=== PATIENT | male | born 1955 | race African-American/Black ===

== ENCOUNTER 2018-06-20 14:07 | Inpatient (IN) | payer MEDICAID, OTHER ==
[~2018-06-20] VITALS: Ht 177.8 cm; Wt 83.9 kg
[2018-06-20] MEDS ORDERED: FUROSEMIDE 40MG/4ML VIAL IVP ONE (15:15)
[2018-06-20] MEDS ORDERED: CLONIDINE 0.1MG TABLET PO ONE (15:15)
[2018-06-20] MEDS ORDERED: AMLODIPINE 10MG TABLET PO ONE (15:15)
[2018-06-20 17:04] LABS: BASOPHILS % 1.2 % (0.0-2.0); EOSINOPHILS % 3.8 % (0.0-5.0); HEMATOCRIT. 39.8 % (42.0-52.0); HEMOGLOBIN. 13.2 g/dL (14.0-18.0); LYMPHOCYTES % 21.9 % (20.0-50.0); MEAN CORPUSCULAR HEMOGLOBIN 29.5 pg (28.0-32.0); MEAN CORPUSCULAR VOLUME 88.8 fL (80.0-94.0); MEAN PLATELET VOLUME 8.2 fl (7.4-10.4); MONOCYTES % 8.8 % (2.0-8.0); NEUTROPHILS % 64.3 % (40.0-76.0); PLATELET 282 x1000/uL (130-400); RED BLOOD CELL COUNT 4.48 mill/uL (4.7-6.1); RED CELL DISTRIBUTION WIDTH 15.8 % (11.6-14.6)
[2018-06-20 17:08] LABS: CHLORIDE 103 mEq/L (98-107)
[2018-06-20 17:09] LABS: PROTHROMBIN TIME 10.1 sec (9.1-11.1)
[2018-06-20 17:14] LABS: ETHANOL BLOOD < 10 mg/dL
[2018-06-20 17:22] LABS: *AMPHETAMINES SCREEN URINE NEGATIVE (NEGATIVE)
[2018-06-20 17:23] LABS: *BARBITURATES SCREEN URINE NEGATIVE (NEGATIVE); *BENZODIAZEPINES SCREEN URINE NEGATIVE (NEGATIVE); *COCAINE SCREEN URINE NEGATIVE (NEGATIVE)
[2018-06-20 17:24] LABS: CANNABINOID URINE SCREEN NEGATIVE (NEGATIVE); METHADONE URINE SCREEN NEGATIVE (NEGATIVE); OPIATES URINE SCREEN NEGATIVE (NEGATIVE); PHENCYCLIDINE URINE SCREEN NEGATIVE (NEGATIVE)
[2018-06-20] MEDS ORDERED: ASPIRIN 81MG TABLET PO ONE (17:45)
[2018-06-20] MEDS ORDERED: POTASSIUM CHLORIDE 20MEQ TABLET SR PO ONE (19:15)
[2018-06-20] MEDS ORDERED: HYDRALAZINE 20MG/ML VIAL IV ONE (19:45)
[2018-06-21] VITALS: BP 190/117
[2018-06-21] MEDS ORDERED: ACETAMINOPHEN 325MG TABLET PO PRN (01:30)
[2018-06-21] MEDS ORDERED: TEMAZEPAM 15MG CAPSULE PO PRN (01:30)
[2018-06-21] MEDS: HYDRALAZINE 20MG/ML VIAL IV PRN ×2 (01:43→06:10)
[2018-06-21 04:28] VITALS: BP 174/104
[2018-06-21] MEDS: OMEPRAZOLE 20MG CAPSULE EXTENDED RELEASE PO SCH (06:09)
[2018-06-21] MEDS: METHYLPREDNISOLONE SOD SUCC 40 MG/ML VIAL IV SCH ×3 (06:10→20:56)
[2018-06-21 07:26] LABS: HEMATOCRIT. 39.9 % (42.0-52.0); HEMOGLOBIN. 13.5 g/dL (14.0-18.0); LYMPHOCYTES % 20.7 % (20.0-50.0); MEAN CORPUSCULAR HEMOGLOBIN 29.7 pg (28.0-32.0); MEAN CORPUSCULAR VOLUME 87.8 fL (80.0-94.0); MEAN PLATELET VOLUME 7.7 fl (7.4-10.4); MONOCYTES % 10.3 % (2.0-8.0); PLATELET 283 x1000/uL (130-400); RED BLOOD CELL COUNT 4.55 mill/uL (4.7-6.1); RED CELL DISTRIBUTION WIDTH 15.6 % (11.6-14.6)
[2018-06-21 08:00] VITALS: BP 162/95
[2018-06-21] MEDS: ALBUTEROL (0.083%) 2.5MG/3ML NEB HHN SCH ×4 (09:17→21:18)
[2018-06-21] MEDS ORDERED: AMLODIPINE 5MG TABLET PO SCH (11:45)
[2018-06-21 12:00] VITALS: BP 156/94
[2018-06-21] MEDS ORDERED: PNEUMOCOCCAL 23-VAL P-SAC VAC 0.5 ML IM ONE (12:00)
[2018-06-21] MEDS: CARVEDILOL 6.25 MG TABLET PO SCH ×2 (12:33→20:56)
[2018-06-21 16:00] VITALS: BP 165/75
[2018-06-21 17:26] LABS: BG BASE EXCESS -1.6 mmol/L (-2.0-2.0); BG DEOXYHEMOGLOBIN 4.7 % (0.0-5.0); BG FRACTION INSPIRED OXYGEN 28; BG HCO3 ACT 22.1 mmol/L (22.0-26.0); BG METHEMOGLOBIN 0.3 % (0.0-1.5); BG OXYGEN SATURATION 95.2 % (92.0-98.5); BG PCO2 34.4 mmHg (35.0-45.0); BG PH 7.426 (7.350-7.450); BG PO2 75.5 mmHg (75.0-100.0); BG SAMPLE SITE RIGHT RADIAL; BG TOTAL HEMOGLOBIN 14.1 g/dL (12.0-18.0); BG VENT MODE NASAL CANNULA
[2018-06-21 20:00] VITALS: BP 181/98
[2018-06-21] MEDS: ATORVASTATIN CALCIUM 10MG TABLET PO SCH (20:55)
[2018-06-21] MEDS ORDERED: POTASSIUM CHLORIDE 20MEQ TABLET SR PO NR (22:15)
[2018-06-21] MEDS: ENOXAPARIN 30MG/0.3ML SYR SUBCUT SCH (22:44)
[2018-06-22] VITALS: BP 137/76
[2018-06-22] MEDS: ALBUTEROL (0.083%) 2.5MG/3ML NEB HHN SCH ×6 (00:50→21:15)
[2018-06-22 04:00] VITALS: BP 190/101
[2018-06-22] MEDS: HYDRALAZINE 20MG/ML VIAL IV PRN (04:00)
[2018-06-22 05:35] LABS: *AMPHETAMINES SCREEN URINE NEGATIVE (NEGATIVE); *BARBITURATES SCREEN URINE NEGATIVE (NEGATIVE); *BENZODIAZEPINES SCREEN URINE NEGATIVE (NEGATIVE); *COCAINE SCREEN URINE NEGATIVE (NEGATIVE)
[2018-06-22 05:36] LABS: CANNABINOID URINE SCREEN NEGATIVE (NEGATIVE); METHADONE URINE SCREEN NEGATIVE (NEGATIVE); OPIATES URINE SCREEN NEGATIVE (NEGATIVE); PHENCYCLIDINE URINE SCREEN NEGATIVE (NEGATIVE)
[2018-06-22 05:37] LABS: CLARITY URINE CLEAR (CLEAR); COLOR URINE YELLOW (YELLOW); KETONES URINE TRACE (NEGATIVE); LEUKOCYTE ESTERASE URINE NEGATIVE (NEGATIVE); NITRITE URINE NEGATIVE (NEGATIVE); OCCULT BLOOD URINE NEGATIVE (NEGATIVE); PROTEIN URINE 3+ (NEGATIVE); SPECIFIC GRAVITY URINE 1.017 (1.005-1.030); UROBILINOGEN URINE 0.2 E.U./dL (0.2-1.0)
[2018-06-22] MEDS: METHYLPREDNISOLONE SOD SUCC 40 MG/ML VIAL IV SCH ×3 (06:34→21:21)
[2018-06-22] MEDS: OMEPRAZOLE 20MG CAPSULE EXTENDED RELEASE PO SCH (06:34)
[2018-06-22 06:45] VITALS: BP 145/85
[2018-06-22 08:02] LABS: HEMATOCRIT. 37.7 % (42.0-52.0); HEMOGLOBIN. 12.7 g/dL (14.0-18.0); MEAN CORPUSCULAR HEMOGLOBIN 29.7 pg (28.0-32.0); MEAN CORPUSCULAR VOLUME 88.1 fL (80.0-94.0); MEAN PLATELET VOLUME 8.2 fl (7.4-10.4); PLATELET 291 x1000/uL (130-400); RED BLOOD CELL COUNT 4.29 mill/uL (4.7-6.1); RED CELL DISTRIBUTION WIDTH 15.8 % (11.6-14.6)
[2018-06-22] MEDS ORDERED: AMLODIPINE 5MG TABLET PO SCH (09:00)
[2018-06-22] MEDS: CARVEDILOL 6.25 MG TABLET PO SCH ×2 (09:10→21:20)
[2018-06-22] MEDS: ASPIRIN 81MG EC TABLET PO SCH (09:10)
[2018-06-22] MEDS: NIFEDIPINE XL 60MG TAB PO SCH ×2 (09:11→21:21)
[2018-06-22 11:12] LABS: PHOSPHORUS 3.3 mg/dL (2.5-4.9)
[2018-06-22 12:00] VITALS: BP 153/67
[2018-06-22] MEDS: HYDRALAZINE HCL 25MG TABLET PO SCH ×2 (15:25→21:22)
[2018-06-22 19:46] LABS: PLATELET ESTIMATE NORMAL
[2018-06-22 20:00] VITALS: BP 137/83
[2018-06-22] MEDS: ATORVASTATIN CALCIUM 10MG TABLET PO SCH (21:20)
[2018-06-22] MEDS: ENOXAPARIN 30MG/0.3ML SYR SUBCUT SCH (21:21)
[2018-06-23] VITALS: BP 144/88
[2018-06-23] MEDS: ALBUTEROL (0.083%) 2.5MG/3ML NEB HHN SCH ×7 (02:36→23:55)
[2018-06-23 04:00] VITALS: BP 130/82
[2018-06-23] MEDS: METHYLPREDNISOLONE SOD SUCC 40 MG/ML VIAL IV SCH ×3 (06:23→21:17)
[2018-06-23] MEDS: HYDRALAZINE HCL 25MG TABLET PO SCH ×3 (06:59→21:17)
[2018-06-23 07:50] VITALS: BP 125/73
[2018-06-23 08:03] LABS: HEMATOCRIT. 36.5 % (42.0-52.0); HEMOGLOBIN. 12.1 g/dL (14.0-18.0); MEAN CORPUSCULAR HEMOGLOBIN 29.3 pg (28.0-32.0); MEAN CORPUSCULAR VOLUME 88.4 fL (80.0-94.0); MEAN PLATELET VOLUME 8.3 fl (7.4-10.4); PLATELET 302 x1000/uL (130-400); RED BLOOD CELL COUNT 4.14 mill/uL (4.7-6.1); RED CELL DISTRIBUTION WIDTH 15.9 % (11.6-14.6)
[2018-06-23 08:05] LABS: PHOSPHORUS 4.2 mg/dL (2.5-4.9)
[2018-06-23] MEDS: ASPIRIN 81MG EC TABLET PO SCH (10:05)
[2018-06-23] MEDS: CARVEDILOL 6.25 MG TABLET PO SCH ×2 (10:05→21:16)
[2018-06-23] MEDS: FAMOTIDINE 20MG TABLET PO SCH (10:06)
[2018-06-23] MEDS: NIFEDIPINE XL 60MG TAB PO SCH ×2 (10:06→21:17)
[2018-06-23 10:16] LABS: PLATELET ESTIMATE NORMAL
[2018-06-23 10:54] LABS: BG BASE EXCESS 0.5 mmol/L (-2.0-2.0); BG CARBOXYHEMOGLOBIN 0.1 % (0.5-1.5); BG DEOXYHEMOGLOBIN 7.4 % (0.0-5.0); BG FRACTION INSPIRED OXYGEN 21; BG METHEMOGLOBIN 0.2 % (0.0-1.5); BG OXYGEN SATURATION 92.6 % (92.0-98.5); BG OXYHEMOGLOBIN 92.3 % (94.0-97.0); BG PCO2 39.9 mmHg (35.0-45.0); BG PH 7.415 (7.350-7.450); BG PO2 65.8 mmHg (75.0-100.0); BG SAMPLE SITE RIGHT RADIAL; BG TOTAL HEMOGLOBIN 13.1 g/dL (12.0-18.0); BG VENT MODE ROOM AIR
[2018-06-23 12:46] VITALS: BP 139/85
[2018-06-23 15:40] VITALS: BP 133/88
[2018-06-23 19:59] VITALS: BP 150/90
[2018-06-23] MEDS: ATORVASTATIN CALCIUM 10MG TABLET PO SCH (21:16)
[2018-06-23] MEDS: ENOXAPARIN 30MG/0.3ML SYR SUBCUT SCH (21:20)
[2018-06-24] VITALS (9 sets, daily range): BP systolic 110–166; BP diastolic 45–102
[2018-06-24] MEDS: ALBUTEROL (0.083%) 2.5MG/3ML NEB HHN SCH ×5 (04:00→20:00)
[2018-06-24] MEDS: HYDRALAZINE HCL 25MG TABLET PO SCH ×3 (05:15→21:15)
[2018-06-24 07:16] LABS: HEMATOCRIT. 37.9 % (42.0-52.0); HEMOGLOBIN. 12.3 g/dL (14.0-18.0); MEAN CORPUSCULAR HEMOGLOBIN 28.8 pg (28.0-32.0); MEAN CORPUSCULAR VOLUME 88.5 fL (80.0-94.0); MEAN PLATELET VOLUME 7.9 fl (7.4-10.4); PLATELET 342 x1000/uL (130-400); RED BLOOD CELL COUNT 4.28 mill/uL (4.7-6.1); RED CELL DISTRIBUTION WIDTH 15.7 % (11.6-14.6)
[2018-06-24] MEDS: ASPIRIN 81MG EC TABLET PO SCH (09:02)
[2018-06-24] MEDS: PREDNISONE 20MG TABLET PO SCH ×2 (09:02→16:20)
[2018-06-24] MEDS: CARVEDILOL 6.25 MG TABLET PO SCH ×2 (09:02→21:15)
[2018-06-24] MEDS: FAMOTIDINE 20MG TABLET PO SCH (09:02)
[2018-06-24] MEDS: NIFEDIPINE XL 60MG TAB PO SCH ×2 (09:02→21:15)
[2018-06-24 12:10] LABS: PLATELET ESTIMATE NORMAL
[2018-06-24 13:07] LABS: A/G RATIO 0.9 (0.7-1.7); ALPHA-1-GLOBULIN 0.3 g/dL (0.0-0.4); ALPHA-2-GLOBULIN 0.8 g/dL (0.4-1.0); BETA GLOBULIN 1.1 g/dL (0.7-1.3); GAMMA GLOBULINS 1.3 g/dL (0.4-1.8); GLOBULIN TOTAL 3.5 g/dL (2.2-3.9); M-SPIKE Not Observed g/dL (Not Observed); TOTAL PROTEIN SERUM 6.5 g/dL (6.0-8.5)
[2018-06-24] MEDS ORDERED: SODIUM POLYSTYRENE SULFONATE 15 G/60 ML BOT PO SCH (15:00)
[2018-06-24] MEDS: ATORVASTATIN CALCIUM 10MG TABLET PO SCH (21:14)
[2018-06-24] MEDS: ENOXAPARIN 30MG/0.3ML SYR SUBCUT SCH (21:22)
[2018-06-25] MEDS: ALBUTEROL (0.083%) 2.5MG/3ML NEB HHN SCH ×6 (04:00→20:23)
[2018-06-25 04:30] VITALS: BP 134/81
[2018-06-25] MEDS: HYDRALAZINE HCL 25MG TABLET PO SCH ×3 (05:06→21:53)
[2018-06-25 07:00] LABS: BASOPHILS % 0.2 % (0.0-2.0); EOSINOPHILS % 0.1 % (0.0-5.0); HEMATOCRIT. 37.6 % (42.0-52.0); HEMOGLOBIN. 12.5 g/dL (14.0-18.0); LYMPHOCYTES % 11.3 % (20.0-50.0); MEAN CORPUSCULAR HEMOGLOBIN 29.5 pg (28.0-32.0); MEAN CORPUSCULAR VOLUME 89.1 fL (80.0-94.0); MEAN PLATELET VOLUME 7.8 fl (7.4-10.4); MONOCYTES % 11.1 % (2.0-8.0); NEUTROPHILS % 77.3 % (40.0-76.0); PLATELET 325 x1000/uL (130-400); RED BLOOD CELL COUNT 4.23 mill/uL (4.7-6.1); RED CELL DISTRIBUTION WIDTH 15.9 % (11.6-14.6)
[2018-06-25 07:57] LABS: PHOSPHORUS 4.8 mg/dL (2.5-4.9)
[2018-06-25 08:00] VITALS: BP 141/90
[2018-06-25] MEDS: PREDNISONE 20MG TABLET PO SCH ×2 (10:07→17:40)
[2018-06-25] MEDS: ASPIRIN 81MG EC TABLET PO SCH (10:07)
[2018-06-25] MEDS: FAMOTIDINE 20MG TABLET PO SCH (10:07)
[2018-06-25] MEDS: CARVEDILOL 6.25 MG TABLET PO SCH ×2 (10:08→21:53)
[2018-06-25] MEDS: NIFEDIPINE XL 60MG TAB PO SCH ×2 (10:09→21:53)
[2018-06-25 12:00] VITALS: BP 167/106
[2018-06-25 16:00] VITALS: BP 162/95
[2018-06-25 20:00] VITALS: BP 170/99
[2018-06-25] MEDS: ATORVASTATIN CALCIUM 10MG TABLET PO SCH (21:53)
[2018-06-25] MEDS: ENOXAPARIN 30MG/0.3ML SYR SUBCUT SCH (21:54)
[2018-06-26] VITALS: BP 163/98
[2018-06-26] MEDS: ALBUTEROL (0.083%) 2.5MG/3ML NEB HHN SCH ×7 (00:01→23:51)
[2018-06-26 04:00] VITALS: BP 152/99
[2018-06-26] MEDS: HYDRALAZINE HCL 25MG TABLET PO SCH ×2 (05:18→13:38)
[2018-06-26 08:16] LABS: PHOSPHORUS 4.2 mg/dL (2.5-4.9)
[2018-06-26 08:30] VITALS: BP 150/96
[2018-06-26] MEDS: NIFEDIPINE XL 60MG TAB PO SCH ×2 (09:09→20:09)
[2018-06-26] MEDS: PREDNISONE 20MG TABLET PO SCH ×2 (09:09→16:33)
[2018-06-26] MEDS: CARVEDILOL 6.25 MG TABLET PO SCH ×2 (09:10→20:09)
[2018-06-26] MEDS: FAMOTIDINE 20MG TABLET PO SCH (09:10)
[2018-06-26] MEDS: ASPIRIN 81MG EC TABLET PO SCH (09:10)
[2018-06-26 10:23] LABS: HEMATOCRIT. 37.3 % (42.0-52.0); HEMOGLOBIN. 12.4 g/dL (14.0-18.0); MEAN CORPUSCULAR HEMOGLOBIN 29.5 pg (28.0-32.0); MEAN CORPUSCULAR VOLUME 88.6 fL (80.0-94.0); PLATELET 340 x1000/uL (130-400); RED BLOOD CELL COUNT 4.21 mill/uL (4.7-6.1); RED CELL DISTRIBUTION WIDTH 16.2 % (11.6-14.6)
[2018-06-26 11:24] LABS: PLATELET ESTIMATE NORMAL
[2018-06-26 12:00] VITALS: BP 184/104
[2018-06-26] MEDS: HYDRALAZINE 20MG/ML VIAL IV PRN (13:38)
[2018-06-26] MEDS ORDERED: CLONIDINE 0.1MG TABLET PO PRN (15:30)
[2018-06-26 16:00] VITALS: BP 146/79
[2018-06-26 20:00] VITALS: BP 158/95
[2018-06-26] MEDS: ATORVASTATIN CALCIUM 10MG TABLET PO SCH (20:08)
[2018-06-26] MEDS: HYDRALAZINE HCL 100MG TABLET PO SCH (20:09)
[2018-06-26] MEDS: ENOXAPARIN 30MG/0.3ML SYR SUBCUT SCH (20:10)
[2018-06-27] VITALS: BP 186/79
[2018-06-27 04:00] VITALS: BP 145/86
[2018-06-27] MEDS: ALBUTEROL (0.083%) 2.5MG/3ML NEB HHN SCH ×3 (04:26→12:00)
[2018-06-27] MEDS: HYDRALAZINE HCL 100MG TABLET PO SCH ×2 (05:42→14:58)
[2018-06-27 08:10] VITALS: BP 174/90
[2018-06-27] MEDS: CARVEDILOL 6.25 MG TABLET PO SCH (08:56)
[2018-06-27] MEDS: FAMOTIDINE 20MG TABLET PO SCH (08:56)
[2018-06-27] MEDS: NIFEDIPINE XL 60MG TAB PO SCH (08:56)
[2018-06-27] MEDS: PREDNISONE 20MG TABLET PO SCH (08:56)
[2018-06-27] MEDS: ASPIRIN 81MG EC TABLET PO SCH (08:56)
[2018-06-27 09:54] VITALS: BP_SYST 158; BP_SYST 174; BP_DIAS 86; BP_DIAS 90
[2018-06-27 12:00] VITALS: BP 156/89
[2018-06-27] MEDS ORDERED: CLONIDINE 0.1MG TABLET PO SCH (14:00)
[2018-06-27 16:14] LABS: BASOPHILS % 0.4 % (0.0-2.0); EOSINOPHILS % 0.3 % (0.0-5.0); HEMOGLOBIN. 13.3 g/dL (14.0-18.0); LYMPHOCYTES % 7.9 % (20.0-50.0); MEAN CORPUSCULAR HEMOGLOBIN 29.7 pg (28.0-32.0); MEAN CORPUSCULAR VOLUME 89.6 fL (80.0-94.0); MEAN PLATELET VOLUME 8.2 fl (7.4-10.4); MONOCYTES % 6.8 % (2.0-8.0); NEUTROPHILS % 84.6 % (40.0-76.0); PLATELET 390 x1000/uL (130-400); RED BLOOD CELL COUNT 4.47 mill/uL (4.7-6.1)
[2018-06-27 16:32] LABS: PHOSPHORUS 2.9 mg/dL (2.5-4.9)
[2018-06-28 07:17] LABS: ALBUMIN URINE 68.4 % (.); ALPHA-1-GLOBULIN URINE 2.8 % (.); ALPHA-2-GLOBULIN URINE 5.7 % (.); BETA GLOBULIN URINE 11.7 % (.); GAMMA GLOBULIN URINE 11.4 % (.); TOTAL PROTEIN RANDOM URINE 332.2 mg/dL (Not Estab.)
== END 2018-06-27 15:21 | disposition home or self-care (01) | DRG 199 ==
LOC: ER 14:07 → 5WST 17:39 → EDBEDREQ 17:48 → EDBEDREQTM 17:48 → ENRESERV 21:36
PROVIDERS: ADMIT Internal Medicine; ATTEND Internal Medicine
DX: I16.0 Hypertensive urgency (principal); N17.0 Acute kidney failure with tubular necrosis; E43 Unspecified severe protein-calorie malnutrition; I50.23 Acute on chronic systolic (congestive) heart failure; I13.0 Hypertensive heart and chronic kidney disease with heart failure and stage 1 through stage 4 chronic kidney disease, or unspecified chronic kidney disease; N18.4 Chronic kidney disease, stage 4 (severe); E87.6 Hypokalemia; E78.5 Hyperlipidemia, unspecified; I25.10 Atherosclerotic heart disease of native coronary artery without angina pectoris; J43.9 Emphysema, unspecified; I25.5 Ischemic cardiomyopathy; Z87.891 Personal history of nicotine dependence; Z95.5 Presence of coronary angioplasty implant and graft; I25.2 Old myocardial infarction; Z59.0 Homelessness; Z79.899 Other long term (current) drug therapy; Z82.49 Family history of ischemic heart disease and other diseases of the circulatory system; Z88.6 Allergy status to analgesic agent; Z88.8 Allergy status to other drugs, medicaments and biological substances; Z68.26 Body mass index [BMI] 26.0-26.9, adult; Z90.49 Acquired absence of other specified parts of digestive tract
CPT/HCPCS: 36415; 36600; 71045; 71250; 76700; 76770; 80048; 80305; 82375; 82550; 82570; 82805; 83735; 83880; 84100; 84155; 84156; 84165; 84166; 84484; 93005; 93306; 94640; 96374; 96375; 97162; 99291; C1893; G0482; J0360; J1650; J1940; J2920; J7512; J7611

== ENCOUNTER 2018-07-14 13:56 | Inpatient (IN) | payer MEDICAID ==
[~2018-07-14] VITALS: Ht 175.3 cm; Wt 86.2 kg
[2018-07-14] MEDS ORDERED: SODIUM CHLORIDE 0.9% 1,000 ML IV ONE ×2 (16:00→17:10)
[2018-07-14 16:34] LABS: CLARITY URINE CLEAR (CLEAR); COLOR URINE YELLOW (YELLOW); KETONES URINE NEGATIVE (NEGATIVE); LEUKOCYTE ESTERASE URINE NEGATIVE (NEGATIVE); NITRITE URINE NEGATIVE (NEGATIVE); OCCULT BLOOD URINE TRACE (NEGATIVE); PROTEIN URINE 3+ (NEGATIVE)
[2018-07-14 16:59] LABS: *AMPHETAMINES SCREEN URINE NEGATIVE (NEGATIVE); *BARBITURATES SCREEN URINE NEGATIVE (NEGATIVE); *BENZODIAZEPINES SCREEN URINE NEGATIVE (NEGATIVE); *COCAINE SCREEN URINE NEGATIVE (NEGATIVE); CANNABINOID URINE SCREEN NEGATIVE (NEGATIVE); PHENCYCLIDINE URINE SCREEN NEGATIVE (NEGATIVE)
[2018-07-14 16:59] LABS: BASOPHILS % 0.8 % (0.0-2.0); EOSINOPHILS % 5.5 % (0.0-5.0); HEMATOCRIT. 37.6 % (42.0-52.0); HEMOGLOBIN. 12.4 g/dL (14.0-18.0); LYMPHOCYTES % 22.1 % (20.0-50.0); MEAN CORPUSCULAR HEMOGLOBIN 29.7 pg (28.0-32.0); MONOCYTES % 11.4 % (2.0-8.0); NEUTROPHILS % 60.2 % (40.0-76.0); PLATELET 207 x1000/uL (130-400); RED BLOOD CELL COUNT 4.18 mill/uL (4.7-6.1); RED CELL DISTRIBUTION WIDTH 16.2 % (11.6-14.6)
[2018-07-14 17:00] LABS: METHADONE URINE SCREEN NEGATIVE (NEGATIVE); OPIATES URINE SCREEN NEGATIVE (NEGATIVE)
[2018-07-14 17:00] LABS: CHLORIDE 107 mEq/L (98-107); INR 0.9; PROTHROMBIN TIME 9.4 sec (9.1-11.1)
[2018-07-14 17:04] LABS: ETHANOL BLOOD < 10 mg/dL
[2018-07-14] MEDS ORDERED: DOCUSATE SODIUM 100MG CAPSULE PO PRN (18:15)
[2018-07-14] MEDS ORDERED: IPRATROPIUM/ALBUTEROL 0.5-3(2.5)MG/3ML NEB INH PRN (18:15)
[2018-07-14] MEDS ORDERED: ONDANSETRON HCL 4MG/2ML INJ IV PRN (18:15)
[2018-07-14] MEDS: CLONIDINE 0.1MG TABLET PO PRN (19:48)
[2018-07-14 22:08] VITALS: BP 162/106
[2018-07-14] MEDS ORDERED: MVI, ADULT NO.1 10 ML, FOLIC ACID 1 MG, THIAMINE HCL 100 MG in SODIUM CHLORIDE 0.9% 1,0... IV ONE ×4 (23:00)
[2018-07-15] VITALS: BP 153/97
[2018-07-15 01:39] LABS: CREATINE KINASE MB FRACTION 1.5 ng/mL (0.5-3.6)
[2018-07-15 04:00] VITALS: BP 174/96
[2018-07-15] MEDS: CLONIDINE 0.1MG TABLET PO PRN ×2 (04:57→22:45)
[2018-07-15 06:44] LABS: BASOPHILS % 0.8 % (0.0-2.0); EOSINOPHILS % 5.2 % (0.0-5.0); HEMATOCRIT. 37.2 % (42.0-52.0); HEMOGLOBIN. 12.4 g/dL (14.0-18.0); LYMPHOCYTES % 21.9 % (20.0-50.0); MEAN CORPUSCULAR HEMOGLOBIN 29.9 pg (28.0-32.0); MEAN CORPUSCULAR VOLUME 89.7 fL (80.0-94.0); MEAN PLATELET VOLUME 8.2 fl (7.4-10.4); MONOCYTES % 11.2 % (2.0-8.0); NEUTROPHILS % 60.9 % (40.0-76.0); PLATELET 213 x1000/uL (130-400); RED BLOOD CELL COUNT 4.15 mill/uL (4.7-6.1); RED CELL DISTRIBUTION WIDTH 16.2 % (11.6-14.6)
[2018-07-15 08:00] VITALS: BP 165/91
[2018-07-15] MEDS ORDERED: ASPIRIN 81MG TABLET PO SCH (09:00)
[2018-07-15] MEDS: FOLIC ACID 1MG TABLET PO SCH (09:26)
[2018-07-15] MEDS: HYDROCODONE/ACETAMINOPHEN 5/325MG TABLET PO PRN ×2 (09:27→19:59)
[2018-07-15] MEDS: ASPIRIN 81MG TABLET PO SCH (09:27)
[2018-07-15] MEDS ORDERED: REGADENOSON 0.4 MG/5 ML IV SCH (11:15)
[2018-07-15] MEDS ORDERED: REGADENOSON 0.4 MG/5 ML IV ONE (12:04)
[2018-07-15] MEDS: ENOXAPARIN 40MG/0.4ML SYR SUBCUT SCH (13:24)
[2018-07-15 13:39] VITALS: BP 161/98
[2018-07-15 13:52] LABS: TOTAL IRON BINDING CAPACITY 295 ug/dL (250-450)
[2018-07-15 14:25] LABS: FERRITIN 193 ng/mL (22-322)
[2018-07-15 14:35] LABS: VITAMIN B12 SERUM 566 pg/mL (211-911)
[2018-07-15 14:37] LABS: FOLIC ACID (FOLATE) SERUM > 20.00 ng/mL (>5.38)
[2018-07-15 16:00] VITALS: BP 161/92
[2018-07-15 16:42] LABS: T4 FREE 0.91 ng/dL (0.76-1.46)
[2018-07-15 16:43] LABS: CREATINE KINASE MB FRACTION 1.4 ng/mL (0.5-3.6)
[2018-07-15 20:00] VITALS: BP 178/96
[2018-07-16] VITALS: BP 183/97
[2018-07-16] MEDS ORDERED: CLON0.1T PO (00:07)
[2018-07-16] MEDS ORDERED: ASPI-1159 PO (00:07)
[2018-07-16] MEDS ORDERED: NIFE60TA64 PO (00:07)
[2018-07-16] MEDS ORDERED: ATOR10TA69 PO (00:07)
[2018-07-16 01:00] LABS: CREATINE KINASE MB FRACTION 1.3 ng/mL (0.5-3.6)
[2018-07-16] MEDS: HYDROCODONE/ACETAMINOPHEN 5/325MG TABLET PO PRN (03:30)
[2018-07-16 04:00] VITALS: BP 188/65
[2018-07-16] MEDS: CLONIDINE 0.1MG TABLET PO PRN (06:16)
[2018-07-16 08:00] VITALS: BP 169/116
[2018-07-16] MEDS: ASPIRIN 81MG TABLET PO SCH (08:52)
[2018-07-16] MEDS: FOLIC ACID 1MG TABLET PO SCH (08:52)
[2018-07-16 08:53] LABS: BASOPHILS % 0.7 % (0.0-2.0); EOSINOPHILS % 5.1 % (0.0-5.0); HEMATOCRIT. 38.1 % (42.0-52.0); HEMOGLOBIN. 12.5 g/dL (14.0-18.0); LYMPHOCYTES % 20.6 % (20.0-50.0); MEAN CORPUSCULAR HEMOGLOBIN 29.6 pg (28.0-32.0); MEAN PLATELET VOLUME 8.2 fl (7.4-10.4); MONOCYTES % 10.8 % (2.0-8.0); NEUTROPHILS % 62.8 % (40.0-76.0); PLATELET 229 x1000/uL (130-400); RED BLOOD CELL COUNT 4.23 mill/uL (4.7-6.1); RED CELL DISTRIBUTION WIDTH 15.9 % (11.6-14.6)
[2018-07-16] MEDS: ENOXAPARIN 40MG/0.4ML SYR SUBCUT SCH (08:53)
[2018-07-16] MEDS ORDERED: ASPIRIN 81MG TABLET PO SCH (09:00)
[2018-07-16 09:04] LABS: CHLORIDE 104 mEq/L (98-107)
[2018-07-16 09:15] LABS: CREATINE KINASE 52 IU/L (39-308)
[2018-07-16 09:16] LABS: CREATINE KINASE MB FRACTION < 1.0 ng/mL (0.5-3.6)
[2018-07-16] MEDS: CLONIDINE 0.1MG TABLET PO SCH ×2 (09:28→21:12)
[2018-07-16] MEDS: NIFEDIPINE XL 60MG TAB PO SCH ×2 (09:28→21:12)
[2018-07-16 12:00] VITALS: BP 176/108
[2018-07-16 16:00] VITALS: BP 160/99
[2018-07-16] MEDS ORDERED: NIFEDIPINE 60 MG PO SCH (17:00)
[2018-07-16 20:00] VITALS: BP 125/89
[2018-07-16] MEDS ORDERED: ATORVASTATIN CALCIUM 10MG TABLET PO SCH (21:00)
[2018-07-17] VITALS: BP 166/95
[2018-07-17] MEDS: ACETAMINOPHEN 325MG TABLET PO PRN ×2 (00:08→16:38)
[2018-07-17 04:00] VITALS: BP 151/83
[2018-07-17 08:00] VITALS: BP 134/89
[2018-07-17] MEDS: FOLIC ACID 1MG TABLET PO SCH (08:29)
[2018-07-17] MEDS: CLONIDINE 0.1MG TABLET PO SCH (08:29)
[2018-07-17] MEDS: ASPIRIN 81MG TABLET PO SCH (08:29)
[2018-07-17] MEDS: NIFEDIPINE XL 60MG TAB PO SCH (08:29)
[2018-07-17] MEDS: ENOXAPARIN 40MG/0.4ML SYR SUBCUT SCH (08:30)
[2018-07-17 12:00] VITALS: BP 160/94
[2018-07-17] MEDS: CLONIDINE 0.1MG TABLET PO PRN (12:39)
[2018-07-17 15:27] VITALS: BP 143/82
== END 2018-07-17 17:05 | disposition home or self-care (01) | DRG 194 ==
LOC: ER 13:56 → EDBEDREQ 17:30 → ENRESERV 20:26 → 8WST 21:14 → 5WST 07-16 05:21
PROVIDERS: ADMIT Internal Medicine; ATTEND Internal Medicine
DX: I13.0 Hypertensive heart and chronic kidney disease with heart failure and stage 1 through stage 4 chronic kidney disease, or unspecified chronic kidney disease (principal); E44.1 Mild protein-calorie malnutrition; G90.8 Other disorders of autonomic nervous system; I50.22 Chronic systolic (congestive) heart failure; D50.9 Iron deficiency anemia, unspecified; R07.9 Chest pain, unspecified; E78.5 Hyperlipidemia, unspecified; R74.8 Abnormal levels of other serum enzymes; I25.10 Atherosclerotic heart disease of native coronary artery without angina pectoris; J44.9 Chronic obstructive pulmonary disease, unspecified; N18.9 Chronic kidney disease, unspecified; I25.2 Old myocardial infarction; Z95.5 Presence of coronary angioplasty implant and graft; Z90.49 Acquired absence of other specified parts of digestive tract; Z79.82 Long term (current) use of aspirin; Z87.820 Personal history of traumatic brain injury; Z87.891 Personal history of nicotine dependence; Z88.6 Allergy status to analgesic agent; Z88.8 Allergy status to other drugs, medicaments and biological substances; Z79.899 Other long term (current) drug therapy
CPT/HCPCS: 36415; 70551; 71045; 78452; 80048; 80061; 80305; 82550; 82553; 82607; 82728; 82746; 82962; 83036; 83540; 83550; 83605; 83880; 84153; 84439; 84443; 84484; 85379; 93005; 93017; 93880; 93970; 96360; 97162; 99285; A9500; G0482; J1650; J2785; J3411; J3490; J7030; G0103

== ENCOUNTER 2018-11-10 17:06 | Inpatient (IN) | payer MEDICAID ==
[~2018-11-10] VITALS: Ht 175.3 cm; Wt 83.5 kg
[~2018-11-10 17:06] MED LIST: ASPI-1159 PO; ATOR10TA69 PO; CLON0.1T PO; NIFE60TA64 PO
[2018-11-10] MEDS ORDERED: SODIUM CHLORIDE 0.9% 1,000 ML IV ONE (18:24)
[2018-11-10] MEDS ORDERED: ONDANSETRON HCL 4MG/2ML INJ IV STA (18:24)
[2018-11-10] MEDS ORDERED: HYDRALAZINE 20MG/ML VIAL IV ONE ×2 (18:30→20:45)
[2018-11-10 20:13] LABS: BASOPHILS % 1.2 % (0.0-2.0); EOSINOPHILS % 3.8 % (0.0-5.0); HEMATOCRIT. 43.5 % (42.0-52.0); HEMOGLOBIN. 14.3 g/dL (14.0-18.0); LYMPHOCYTES % 28.4 % (20.0-50.0); MEAN CORPUSCULAR HEMOGLOBIN 29.6 pg (28.0-32.0); MEAN CORPUSCULAR VOLUME 90.3 fL (80.0-94.0); MEAN PLATELET VOLUME 7.5 fl (7.4-10.4); NEUTROPHILS % 54.6 % (40.0-76.0); PLATELET 296 x1000/uL (130-400); RED BLOOD CELL COUNT 4.82 mill/uL (4.7-6.1); RED CELL DISTRIBUTION WIDTH 14.6 % (11.6-14.6)
[2018-11-10 20:16] LABS: CHLORIDE 110 mEq/L (98-107)
[2018-11-10] MEDS ORDERED: MORPHINE SULFATE 4 MG/ML CPJ (NOT FOR IM USE) IV ONE (21:30)
[2018-11-10] MEDS ORDERED: DOCUSATE SODIUM 100MG CAPSULE PO PRN (22:00)
[2018-11-10] MEDS ORDERED: MAGNESIUM/ALUMINUM HYDROXIDE/SIMETHICONE 30ML UDC PO PRN (22:00)
[2018-11-10] MEDS ORDERED: LORAZEPAM 2MG/ML CPJ IV PRN (22:00)
[2018-11-10] MEDS ORDERED: DIPHENHYDRAMINE 50MG/ML VIAL IV PRN (22:00)
[2018-11-10] MEDS ORDERED: ACETAMINOPHEN 325MG TABLET PO PRN (22:00)
[2018-11-10] MEDS ORDERED: MORPHINE SULFATE 4 MG/ML CPJ (NOT FOR IM USE) IV PRN (22:00)
[2018-11-10] MEDS ORDERED: ONDANSETRON HCL 4MG/2ML INJ IV PRN (22:00)
[2018-11-10] MEDS ORDERED: IPRATROPIUM/ALBUTEROL 0.5-3(2.5)MG/3ML NEB INH PRN (22:00)
[2018-11-10] MEDS ORDERED: GUAIFENESIN 200MG/10ML SUGAR FREE UDC PO PRN (22:00)
[2018-11-10] MEDS ORDERED: NA PHOS,M-B/NA PHOS,DI-BA ENEMA 118ML PR PRN (22:00)
[2018-11-10] MEDS ORDERED: CLONIDINE 0.1MG TABLET PO PRN (22:00)
[2018-11-10] MEDS ORDERED: ENOXAPARIN 30MG/0.3ML SYR SUBCUT NR (23:30)
[2018-11-11] VITALS: BP 163/95
[2018-11-11 04:00] VITALS: BP 170/71
[2018-11-11 06:49] LABS: BASOPHILS % 0.9 % (0.0-2.0); EOSINOPHILS % 2.3 % (0.0-5.0); HEMATOCRIT. 37.9 % (42.0-52.0); HEMOGLOBIN. 12.6 g/dL (14.0-18.0); LYMPHOCYTES % 22.9 % (20.0-50.0); MEAN CORPUSCULAR HEMOGLOBIN 29.7 pg (28.0-32.0); MEAN CORPUSCULAR VOLUME 89.4 fL (80.0-94.0); MEAN PLATELET VOLUME 7.6 fl (7.4-10.4); MONOCYTES % 13.3 % (2.0-8.0); NEUTROPHILS % 60.6 % (40.0-76.0); PLATELET 307 x1000/uL (130-400); RED BLOOD CELL COUNT 4.24 mill/uL (4.7-6.1); RED CELL DISTRIBUTION WIDTH 14.3 % (11.6-14.6)
[2018-11-11 06:57] LABS: CHLORIDE 108 mEq/L (98-107)
[2018-11-11 07:07] LABS: LDL CHOLESTEROL 125 mg/dL (5-100)
[2018-11-11 07:08] LABS: HDL CHOLESTEROL 40 mg/dL (40-59); T4 FREE 1.03 ng/dL (0.76-1.46)
[2018-11-11] MEDS ORDERED: ASPIRIN 81MG EC TABLET PO SCH (09:00)
[2018-11-11] MEDS ORDERED: METOPROLOL TARTRATE 25MG TABLET PO SCH (09:00)
[2018-11-11] MEDS ORDERED: AMLODIPINE 10MG TABLET PO SCH (09:00)
[2018-11-11 11:47] VITALS: BP 192/83
[2018-11-11] MEDS ORDERED: ENOXAPARIN 30MG/0.3ML SYR SUBCUT SCH (21:00)
== END 2018-11-11 14:23 | disposition home or self-care (01) | DRG 52 ==
LOC: ER 17:06 → EDBEDREQ 18:26 → 6WST 20:54 → EDBEDREQTM 20:55 → EDBEDREQ 20:55 → ENRESERV 21:31 → 6WST 11-11 00:45
PROVIDERS: ADMIT Internal Medicine; ATTEND Internal Medicine
DX: I67.4 Hypertensive encephalopathy (principal); N17.9 Acute kidney failure, unspecified; I50.9 Heart failure, unspecified; I13.0 Hypertensive heart and chronic kidney disease with heart failure and stage 1 through stage 4 chronic kidney disease, or unspecified chronic kidney disease; E78.00 Pure hypercholesterolemia, unspecified; I25.10 Atherosclerotic heart disease of native coronary artery without angina pectoris; J44.9 Chronic obstructive pulmonary disease, unspecified; N18.9 Chronic kidney disease, unspecified; Z79.82 Long term (current) use of aspirin; Z79.899 Other long term (current) drug therapy; Z90.49 Acquired absence of other specified parts of digestive tract
CPT/HCPCS: 36415; 71045; 80048; 80061; 84439; 84443; 84484; 93005; 96361; 96374; 96375; 96376; 99285; J0360; J2270; J2405; J7030

== ENCOUNTER 2019-03-01 15:09 | Emergency (ER) | payer MEDICAID ==
[~2019-03-01] VITALS: Ht 170.2 cm; Wt 80.0 kg
[~2019-03-01 15:09] MED LIST changes: -ASPI-1159 PO; +ASPI-1393 PO
[2019-03-01 19:00] VITALS: BP 157/71
== END 2019-03-01 19:10 | disposition home or self-care (01) ==
LOC: ER 15:09
DX: R07.89 Other chest pain (principal); I11.0 Hypertensive heart disease with heart failure; I50.9 Heart failure, unspecified; E78.00 Pure hypercholesterolemia, unspecified; J44.9 Chronic obstructive pulmonary disease, unspecified; Z88.6 Allergy status to analgesic agent; Z88.8 Allergy status to other drugs, medicaments and biological substances; Z90.49 Acquired absence of other specified parts of digestive tract; Z79.82 Long term (current) use of aspirin
CPT/HCPCS: 36415; 84484; 99283

== ENCOUNTER 2019-07-01 13:15 | Inpatient (IN) | payer MEDICARE, MEDICAID ==
[~2019-07-01] VITALS: Ht 175.3 cm; Wt 83.9 kg
[2019-07-01 15:15] LABS: BASOPHILS % 0.8 % (0.0-2.0); EOSINOPHILS % 5.9 % (0.0-5.0); HEMATOCRIT. 30.2 % (42.0-52.0); HEMOGLOBIN. 9.9 g/dL (14.0-18.0); LYMPHOCYTES % 17.5 % (20.0-50.0); MEAN CORPUSCULAR HEMOGLOBIN 29.5 pg (28.0-32.0); MEAN CORPUSCULAR VOLUME 90.4 fL (80.0-94.0); MEAN PLATELET VOLUME 7.6 fl (7.4-10.4); MONOCYTES % 7.6 % (2.0-8.0); NEUTROPHILS % 68.2 % (40.0-76.0); PLATELET 293 x1000/uL (130-400); RED BLOOD CELL COUNT 3.34 mill/uL (4.7-6.1)
[2019-07-01 15:28] LABS: CHLORIDE 111 mEq/L (98-107)
[2019-07-01] MEDS ORDERED: CLONIDINE 0.2MG TABLET PO ONE (16:45)
[2019-07-01] MEDS ORDERED: CLONIDINE 0.1MG TABLET PO PRN (20:45)
[2019-07-01] MEDS ORDERED: ACETAMINOPHEN 650MG SUPP PR PRN (20:45)
[2019-07-01] MEDS ORDERED: IPRATROPIUM/ALBUTEROL 0.5-3(2.5)MG/3ML NEB HHN PRN (20:45)
[2019-07-01] MEDS ORDERED: MAGNESIUM/ALUMINUM HYDROXIDE/SIMETHICONE 30ML UDC PO PRN (20:45)
[2019-07-01] MEDS ORDERED: ONDANSETRON HCL 4MG/2ML INJ IV PRN (20:45)
[2019-07-01] MEDS ORDERED: ACETAMINOPHEN 650MG/20.3ML UDC GT PRN (20:45)
[2019-07-01] MEDS ORDERED: ACETAMINOPHEN 325MG TABLET PO PRN (20:45)
[2019-07-01 23:39] LABS: CREATINE KINASE MB FRACTION 3.3 ng/mL (0.5-3.6)
[2019-07-02] MEDS ORDERED: HYDRALAZINE 20MG/ML VIAL IV PRN (01:00)
[2019-07-02 03:00] VITALS: BP 189/111
[2019-07-02] MEDS: NIFEDIPINE XL 90MG TAB PO SCH ×2 (03:19→10:01)
[2019-07-02] MEDS: CLONIDINE 0.1MG TABLET PO SCH ×3 (03:40→16:23)
[2019-07-02] MEDS: ASPIRIN 81MG EC TABLET PO SCH (03:40)
[2019-07-02 04:00] VITALS: BP 156/81
[2019-07-02 08:31] VITALS: BP 155/96
[2019-07-02 10:19] LABS: BASOPHILS % 0.5 % (0.0-2.0); EOSINOPHILS % 7.2 % (0.0-5.0); HEMOGLOBIN. 10.4 g/dL (14.0-18.0); LYMPHOCYTES % 16.5 % (20.0-50.0); MEAN CORPUSCULAR HEMOGLOBIN 29.6 pg (28.0-32.0); MEAN CORPUSCULAR VOLUME 91.4 fL (80.0-94.0); MEAN PLATELET VOLUME 7.8 fl (7.4-10.4); MONOCYTES % 7.7 % (2.0-8.0); NEUTROPHILS % 68.1 % (40.0-76.0); PLATELET 296 x1000/uL (130-400); RED BLOOD CELL COUNT 3.51 mill/uL (4.7-6.1)
[2019-07-02 10:25] LABS: CHLORIDE 109 mEq/L (98-107)
[2019-07-02 10:38] LABS: LDL CHOLESTEROL 97 mg/dL (5-100)
[2019-07-02 10:39] LABS: CREATINE KINASE 115 IU/L (39-308)
[2019-07-02 10:40] LABS: HDL CHOLESTEROL 44 mg/dL (40-59)
[2019-07-02] MEDS ORDERED: SORBITOL 70% SOLN 30ML PO NR (11:30)
[2019-07-02] MEDS ORDERED: FLUTICASONE/VILANTEROL 200-25 BLST.W.DEV ORI SCH (11:30)
[2019-07-02 11:39] VITALS: BP 141/75
[2019-07-02] MEDS: SODIUM CHLORIDE 0.9% INJ 3ML FLUSH IVF SCH ×3 (12:19→22:14)
[2019-07-02 15:49] VITALS: BP 178/78
[2019-07-02] MEDS: HYDROCODONE/ACETAMINOPHEN 5/325MG TABLET PO PRN (19:11)
[2019-07-02 19:25] LABS: CLARITY URINE CLEAR (CLEAR); COLOR URINE YELLOW (YELLOW); KETONES URINE NEGATIVE (NEGATIVE); LEUKOCYTE ESTERASE URINE NEGATIVE (NEGATIVE); NITRITE URINE NEGATIVE (NEGATIVE); OCCULT BLOOD URINE NEGATIVE (NEGATIVE); PROTEIN URINE 3+ (NEGATIVE); SPECIFIC GRAVITY URINE 1.019 (1.005-1.030); UROBILINOGEN URINE 0.2 E.U./dL (0.2-1.0)
[2019-07-02 19:52] LABS: *AMPHETAMINES SCREEN URINE NEGATIVE (NEGATIVE); *BARBITURATES SCREEN URINE NEGATIVE (NEGATIVE); *BENZODIAZEPINES SCREEN URINE NEGATIVE (NEGATIVE); *COCAINE SCREEN URINE PRESUMTIVE POSITIVE (NEGATIVE); METHADONE URINE SCREEN NEGATIVE (NEGATIVE); OPIATES URINE SCREEN NEGATIVE (NEGATIVE)
[2019-07-02 19:53] LABS: PHENCYCLIDINE URINE SCREEN NEGATIVE (NEGATIVE)
[2019-07-02 19:58] LABS: CANNABINOID URINE SCREEN NEGATIVE (NEGATIVE)
[2019-07-02 20:00] VITALS: BP 125/65
[2019-07-02] MEDS ORDERED: ATORVASTATIN CALCIUM 10MG TABLET PO SCH (21:00)
[2019-07-02] MEDS: BUDESONIDE 0.5MG/2ML NEB HHN SCH (21:04)
[2019-07-02] MEDS: IPRATROPIUM/ALBUTEROL 0.5-3(2.5)MG/3ML NEB HHN SCH (21:04)
[2019-07-02] MEDS: ATORVASTATIN CALCIUM 20MG TABLET PO SCH (22:08)
[2019-07-02] MEDS: NIFEDIPINE XL 60MG TAB PO SCH (22:09)
[2019-07-03 00:32] VITALS: BP 129/88
[2019-07-03 04:00] VITALS: BP 131/81
[2019-07-03 06:20] LABS: BASOPHILS % 0.6 % (0.0-2.0); EOSINOPHILS % 6.3 % (0.0-5.0); HEMATOCRIT. 31.5 % (42.0-52.0); HEMOGLOBIN. 10.3 g/dL (14.0-18.0); LYMPHOCYTES % 21.4 % (20.0-50.0); MEAN CORPUSCULAR HEMOGLOBIN 30.1 pg (28.0-32.0); MONOCYTES % 7.6 % (2.0-8.0); NEUTROPHILS % 64.1 % (40.0-76.0); PLATELET 295 x1000/uL (130-400); RED BLOOD CELL COUNT 3.42 mill/uL (4.7-6.1); RED CELL DISTRIBUTION WIDTH 16.5 % (11.6-14.6)
[2019-07-03 06:47] LABS: PHOSPHORUS 4.6 mg/dL (2.5-4.9)
[2019-07-03 07:58] VITALS: BP 146/81
[2019-07-03] MEDS: HYDROCODONE/ACETAMINOPHEN 5/325MG TABLET PO PRN ×2 (07:59→23:55)
[2019-07-03] MEDS: ASPIRIN 81MG EC TABLET PO SCH (08:00)
[2019-07-03] MEDS: CLONIDINE 0.1MG TABLET PO SCH ×2 (08:00→17:15)
[2019-07-03] MEDS: NIFEDIPINE XL 60MG TAB PO SCH ×2 (08:01→20:38)
[2019-07-03 08:15] LABS: HEPATITIS B SURFACE ANTIGEN NEGATIVE
[2019-07-03 08:44] LABS: HEPATITIS A AB IGM NEGATIVE (NEGATIVE)
[2019-07-03] MEDS: BUDESONIDE 0.5MG/2ML NEB HHN SCH ×2 (08:56→22:16)
[2019-07-03] MEDS: IPRATROPIUM/ALBUTEROL 0.5-3(2.5)MG/3ML NEB HHN SCH ×3 (08:56→21:40)
[2019-07-03 09:49] LABS: BG BASE EXCESS -3.3 mmol/L (-2.0-2.0); BG CARBOXYHEMOGLOBIN 0.4 % (0.5-1.5); BG DEOXYHEMOGLOBIN 6.4 % (0.0-5.0); BG FRACTION INSPIRED OXYGEN 285; BG HCO3 ACT 21.3 mmol/L (22.0-26.0); BG METHEMOGLOBIN 0.1 % (0.0-1.5); BG OXYGEN SATURATION 93.6 % (92.0-98.5); BG OXYHEMOGLOBIN 93.1 % (94.0-97.0); BG PCO2 36.1 mmHg (35.0-45.0); BG PH 7.388 (7.350-7.450); BG PO2 72.7 mmHg (75.0-100.0); BG SAMPLE SITE RIGHT RADIAL; BG VENT MODE NASAL CANNULA
[2019-07-03] MEDS: MORPHINE SULFATE 2 MG/ML CPJ (NOT FOR IM USE) IV PRN ×2 (10:45→17:18)
[2019-07-03 12:00] VITALS: BP 137/79
[2019-07-03] MEDS: PREDNISONE 20MG TABLET PO SCH (12:40)
[2019-07-03] MEDS: SODIUM CHLORIDE 0.9% INJ 3ML FLUSH IVF SCH ×2 (13:49→22:19)
[2019-07-03 16:00] VITALS: BP 149/76
[2019-07-03] MEDS: ATORVASTATIN CALCIUM 20MG TABLET PO SCH (20:38)
[2019-07-03 20:50] VITALS: BP 132/68
[2019-07-04 00:30] VITALS: BP 149/73
[2019-07-04] MEDS: IPRATROPIUM/ALBUTEROL 0.5-3(2.5)MG/3ML NEB HHN SCH (02:27)
[2019-07-04 04:00] VITALS: BP 144/78
[2019-07-04] MEDS: SODIUM CHLORIDE 0.9% INJ 3ML FLUSH IVF SCH (05:47)
[2019-07-04 06:10] LABS: HIV SCREEN 4G Non Reactive (Non Reactive)
[2019-07-04 08:00] VITALS: BP 158/90
[2019-07-04 08:17] LABS: BASOPHILS % 0.3 % (0.0-2.0); EOSINOPHILS % 0.2 % (0.0-5.0); HEMATOCRIT. 27.7 % (42.0-52.0); HEMOGLOBIN. 9.1 g/dL (14.0-18.0); LYMPHOCYTES % 12.5 % (20.0-50.0); MEAN CORPUSCULAR HEMOGLOBIN 29.8 pg (28.0-32.0); MEAN CORPUSCULAR VOLUME 90.8 fL (80.0-94.0); MEAN PLATELET VOLUME 8.4 fl (7.4-10.4); MONOCYTES % 6.2 % (2.0-8.0); NEUTROPHILS % 80.8 % (40.0-76.0); PLATELET 265 x1000/uL (130-400); RED BLOOD CELL COUNT 3.05 mill/uL (4.7-6.1); RED CELL DISTRIBUTION WIDTH 16.4 % (11.6-14.6)
[2019-07-04] MEDS: PREDNISONE 20MG TABLET PO SCH (08:43)
[2019-07-04] MEDS: ASPIRIN 81MG EC TABLET PO SCH (08:44)
[2019-07-04] MEDS: NIFEDIPINE XL 60MG TAB PO SCH (08:44)
[2019-07-04 08:47] LABS: BG BASE EXCESS -3.8 mmol/L (-2.0-2.0); BG CARBOXYHEMOGLOBIN 0.2 % (0.5-1.5); BG DEOXYHEMOGLOBIN 5.9 % (0.0-5.0); BG FRACTION INSPIRED OXYGEN 21; BG HCO3 ACT 20.8 mmol/L (22.0-26.0); BG METHEMOGLOBIN 0.3 % (0.0-1.5); BG OXYGEN SATURATION 94.1 % (92.0-98.5); BG OXYHEMOGLOBIN 93.6 % (94.0-97.0); BG PO2 72.5 mmHg (75.0-100.0); BG SAMPLE SITE RIGHT RADIAL; BG VENT MODE ROOM AIR
[2019-07-04] MEDS ORDERED: CLONIDINE 0.2MG TABLET PO SCH (09:00)
[2019-07-04] MEDS ORDERED: PULM50 HHN (10:13)
[2019-07-04] MEDS ORDERED: P20 PO (10:13)
[2019-07-04] MEDS ORDERED: IPRA3AMP9 HHN (10:13)
[2019-07-04] MEDS ORDERED: CLON0.1T PO (10:14)
[2019-07-04] MEDS ORDERED: NIFE60TA64 PO (10:14)
[2019-07-04] MEDS ORDERED: ASPI-1393 PO (10:14)
[2019-07-04] MEDS ORDERED: ATOR10TA69 PO (10:14)
[2019-07-04] MEDS ORDERED: POLYETHYLENE GLYCOL 3350 (17GM) 1 DOSE PACK PO SCH (11:15)
[2019-07-04 12:03] VITALS: BP 158/90
[2019-07-04] MEDS ORDERED: HEPARIN 5000 UNITS/ML VIAL SUBCUT SCH (14:00)
== END 2019-07-04 12:45 | disposition home health service (06) | DRG 682 ==
LOC: ER 13:28 → 6WST 20:22 → ENRESERV 07-02 01:44 → 6WST 07-02 02:45
PROVIDERS: ADMIT Family Medicine; ATTEND Family Medicine
DX: N17.0 Acute kidney failure with tubular necrosis (principal); J96.01 Acute respiratory failure with hypoxia; I50.31 Acute diastolic (congestive) heart failure; I13.0 Hypertensive heart and chronic kidney disease with heart failure and stage 1 through stage 4 chronic kidney disease, or unspecified chronic kidney disease; E44.0 Moderate protein-calorie malnutrition; I50.30 Unspecified diastolic (congestive) heart failure; J98.11 Atelectasis; J44.1 Chronic obstructive pulmonary disease with (acute) exacerbation; I24.8 Other forms of acute ischemic heart disease; N18.4 Chronic kidney disease, stage 4 (severe); I16.0 Hypertensive urgency; B19.20 Unspecified viral hepatitis C without hepatic coma; K59.00 Constipation, unspecified; K76.0 Fatty (change of) liver, not elsewhere classified; E66.9 Obesity, unspecified; D72.1 Eosinophilia; E78.5 Hyperlipidemia, unspecified; F14.90 Cocaine use, unspecified, uncomplicated; F17.210 Nicotine dependence, cigarettes, uncomplicated; I25.10 Atherosclerotic heart disease of native coronary artery without angina pectoris; K80.20 Calculus of gallbladder without cholecystitis without obstruction; M19.90 Unspecified osteoarthritis, unspecified site; D63.1 Anemia in chronic kidney disease; N26.9 Renal sclerosis, unspecified; Z82.49 Family history of ischemic heart disease and other diseases of the circulatory system; I25.2 Old myocardial infarction; Z98.61 Coronary angioplasty status; Z79.899 Other long term (current) drug therapy; Z68.27 Body mass index [BMI] 27.0-27.9, adult; Z90.49 Acquired absence of other specified parts of digestive tract; Z79.82 Long term (current) use of aspirin
CPT/HCPCS: 36415; 36600; 71045; 78582; 80048; 80053; 80061; 80305; 81003; 82375; 82550; 82553; 82570; 82805; 83036; 83540; 83550; 83735; 83880; 84100; 84156; 84484; 85025; 86160; 86705; 86709; 86803; 87340; 87389; 93005; 93306; 93970; 99285; A9558; J2270; J7512; J7620; J7626

== ENCOUNTER 2019-08-22 06:01 | Inpatient (IN) | payer MEDICARE, MEDICAID ==
[~2019-08-22] VITALS: Ht 175.3 cm; Wt 84.6 kg
[2019-08-22] MEDS: IPRATROPIUM/ALBUTEROL 0.5-3(2.5)MG/3ML NEB HHN SCH ×2 (01:12→20:48)
[~2019-08-22 06:01] MED LIST changes: -ASPI-1393 PO; +ASPI-1497 PO; +IPRA3AMP9 HHN; +NIFE-32 PO; -NIFE60TA64 PO; +P20 PO; +PULM50 HHN
[2019-08-22] MEDS ORDERED: MORPHINE SULFATE 4 MG/ML CPJ (NOT FOR IM USE) IV STA (06:33)
[2019-08-22 07:13] LABS: CHLORIDE 109 mEq/L (98-107)
[2019-08-22 07:14] LABS: BASOPHILS % 0.8 % (0.0-2.0); HEMATOCRIT. 31.4 % (42.0-52.0); HEMOGLOBIN. 10.4 g/dL (14.0-18.0); LYMPHOCYTES % 20.5 % (20.0-50.0); MEAN CORPUSCULAR HEMOGLOBIN 29.2 pg (28.0-32.0); MEAN CORPUSCULAR VOLUME 88.7 fL (80.0-94.0); MEAN PLATELET VOLUME 7.5 fl (7.4-10.4); MONOCYTES % 11.3 % (2.0-8.0); NEUTROPHILS % 65.4 % (40.0-76.0); PLATELET 318 x1000/uL (130-400); RED BLOOD CELL COUNT 3.54 mill/uL (4.7-6.1); RED CELL DISTRIBUTION WIDTH 16.1 % (11.6-14.6)
[2019-08-22] MEDS ORDERED: ALBUTEROL (0.083%) 2.5MG/3ML NEB HHN STA (07:30)
[2019-08-22] MEDS ORDERED: IPRATROPIUM BROMIDE (0.02%) 0.5MG/2.5ML NEB HHN STA (07:30)
[2019-08-22] MEDS ORDERED: METHYLPREDNISOLONE SOD SUCC 125 MG/2 ML VIAL IV STA (07:30)
[2019-08-22 08:15] LABS: BG BASE EXCESS -12.9 mmol/L (-2.0-2.0); BG CARBOXYHEMOGLOBIN 1.4 % (0.5-1.5); BG DEOXYHEMOGLOBIN 1.5 % (0.0-5.0); BG FRACTION INSPIRED OXYGEN 60; BG HCO3 ACT 14.1 mmol/L (22.0-26.0); BG METHEMOGLOBIN 0.3 % (0.0-1.5); BG OXYGEN SATURATION 98.5 % (92.0-98.5); BG OXYHEMOGLOBIN 96.8 % (94.0-97.0); BG PCO2 36.6 mmHg (35.0-45.0); BG PH 7.205 (7.350-7.450); BG PO2 152.3 mmHg (75.0-100.0); BG SAMPLE SITE RIGHT BRACHIAL; BG TOTAL HEMOGLOBIN 10.9 g/dL (12.0-18.0)
[2019-08-22] MEDS ORDERED: ENOXAPARIN 40MG/0.4ML SYR SUBCUT SCH (08:15)
[2019-08-22] MEDS ORDERED: IPRATROPIUM/ALBUTEROL 0.5-3(2.5)MG/3ML NEB NEB PRN (08:15)
[2019-08-22] MEDS ORDERED: ONDANSETRON HCL 4MG/2ML INJ IV PRN (08:15)
[2019-08-22] MEDS ORDERED: DIPHENHYDRAMINE 50MG/ML VIAL IV PRN (08:15)
[2019-08-22] MEDS ORDERED: LORAZEPAM 2MG/ML CPJ IV PRN (08:15)
[2019-08-22] MEDS ORDERED: GUAIFENESIN 200MG/10ML SUGAR FREE UDC PO PRN (08:15)
[2019-08-22] MEDS ORDERED: ACETAMINOPHEN 325MG TABLET PO PRN (08:15)
[2019-08-22] MEDS ORDERED: CLONIDINE 0.1MG TABLET PO PRN (08:15)
[2019-08-22] MEDS ORDERED: DOCUSATE SODIUM 100MG CAPSULE PO PRN (08:15)
[2019-08-22] MEDS ORDERED: NA PHOS,M-B/NA PHOS,DI-BA ENEMA 118ML PR PRN (08:15)
[2019-08-22] MEDS ORDERED: MAGNESIUM/ALUMINUM HYDROXIDE/SIMETHICONE 30ML UDC PO PRN (08:15)
[2019-08-22] MEDS ORDERED: LEVOFLOXACIN 500MG PREMIX 100 ML IV SCH (09:45)
[2019-08-22] MEDS ORDERED: SODIUM POLYSTYRENE SULFONATE 15 G/60 ML BOT PO NR (09:45)
[2019-08-22] MEDS: ENOXAPARIN 30MG/0.3ML SYR SUBCUT SCH (10:05)
[2019-08-22] MEDS ORDERED: SODIUM BICARBONATE 8.4% 1 MEQ/ML 50ML SYR IV NR (10:50)
[2019-08-22] MEDS: ASPIRIN 81MG EC TABLET PO SCH (11:45)
[2019-08-22] MEDS ORDERED: SODIUM BICARBONATE 50 MEQ in SODIUM CHLORIDE 0.45% 1,000 ML IV SCH (14:00)
[2019-08-22] MEDS: METHYLPREDNISOLONE SOD SUCC 125 MG/2 ML VIAL IV SCH ×2 (14:57→19:05)
[2019-08-22 15:24] LABS: BG BASE EXCESS -2.1 mmol/L (-2.0-2.0); BG CARBOXYHEMOGLOBIN 0.5 % (0.5-1.5); BG FRACTION INSPIRED OXYGEN 32; BG HCO3 ACT 22.9 mmol/L (22.0-26.0); BG OXYHEMOGLOBIN 95.5 % (94.0-97.0); BG PCO2 39.8 mmHg (35.0-45.0); BG PH 7.377 (7.350-7.450); BG SAMPLE SITE RIGHT RADIAL; BG TOTAL HEMOGLOBIN 11.3 g/dL (12.0-18.0); BG VENT MODE NASAL CANNULA
[2019-08-22] MEDS: CLONIDINE 0.3MG TABLET PO PRN (19:47)
[2019-08-22 20:00] VITALS: BP 190/88
[2019-08-22 20:38] LABS: CREATINE KINASE MB FRACTION 5.5 ng/mL (0.5-3.6)
[2019-08-22] MEDS: AMLODIPINE 10MG TABLET PO SCH (21:55)
[2019-08-22] MEDS: METOPROLOL TARTRATE 25MG TABLET PO SCH (21:56)
[2019-08-22 22:30] LABS: CREATINE KINASE MB FRACTION 4.6 ng/mL (0.5-3.6)
[2019-08-23] VITALS: BP 201/98
[2019-08-23] MEDS: METHYLPREDNISOLONE SOD SUCC 125 MG/2 ML VIAL IV SCH ×4 (00:46→17:00)
[2019-08-23] MEDS: MORPHINE SULFATE 2 MG/ML CPJ (NOT FOR IM USE) IV PRN ×2 (00:59→20:04)
[2019-08-23 01:00] VITALS: BP 194/97
[2019-08-23] MEDS: CLONIDINE 0.3MG TABLET PO PRN ×2 (01:05→06:44)
[2019-08-23 04:00] VITALS: BP 189/99
[2019-08-23 04:39] LABS: CLARITY URINE CLEAR (CLEAR); COLOR URINE YELLOW (YELLOW); KETONES URINE NEGATIVE (NEGATIVE); LEUKOCYTE ESTERASE URINE NEGATIVE (NEGATIVE); NITRITE URINE NEGATIVE (NEGATIVE); OCCULT BLOOD URINE TRACE (NEGATIVE); PROTEIN URINE 3+ (NEGATIVE); SPECIFIC GRAVITY URINE 1.015 (1.005-1.030); UROBILINOGEN URINE 0.2 E.U./dL (0.2-1.0)
[2019-08-23] MEDS: IPRATROPIUM/ALBUTEROL 0.5-3(2.5)MG/3ML NEB HHN SCH ×5 (04:49→21:08)
[2019-08-23 06:33] LABS: HEMATOCRIT. 31.7 % (42.0-52.0); HEMOGLOBIN. 10.6 g/dL (14.0-18.0); MEAN CORPUSCULAR HEMOGLOBIN 29.1 pg (28.0-32.0); MEAN CORPUSCULAR VOLUME 87.1 fL (80.0-94.0); MEAN PLATELET VOLUME 7.7 fl (7.4-10.4); PLATELET 290 x1000/uL (130-400); RED BLOOD CELL COUNT 3.64 mill/uL (4.7-6.1); RED CELL DISTRIBUTION WIDTH 15.8 % (11.6-14.6)
[2019-08-23 07:20] LABS: CHLORIDE 104 mEq/L (98-107)
[2019-08-23 07:47] LABS: LDL CHOLESTEROL 88 mg/dL (5-100)
[2019-08-23 07:48] LABS: CREATINE KINASE 230 IU/L (39-308); CREATINE KINASE MB FRACTION 4.7 ng/mL (0.5-3.6)
[2019-08-23 07:50] LABS: HDL CHOLESTEROL 59 mg/dL (40-59); T4 FREE 1.03 ng/dL (0.76-1.46)
[2019-08-23 08:00] VITALS: BP 206/87
[2019-08-23] MEDS: AMLODIPINE 10MG TABLET PO SCH (09:56)
[2019-08-23] MEDS: ENOXAPARIN 30MG/0.3ML SYR SUBCUT SCH (09:56)
[2019-08-23] MEDS: ASPIRIN 81MG EC TABLET PO SCH (09:56)
[2019-08-23] MEDS: METOPROLOL TARTRATE 25MG TABLET PO SCH ×2 (09:57→20:04)
[2019-08-23] MEDS ORDERED: LEVOFLOXACIN 500MG PREMIX 100 ML IV SCH (10:00)
[2019-08-23] MEDS: SODIUM CHLORIDE 0.45% 1,000 ML IV SCH (10:55)
[2019-08-23 12:00] VITALS: BP 210/105
[2019-08-23] MEDS: HYDRALAZINE HCL 25MG TABLET PO SCH ×2 (13:17→22:19)
[2019-08-23] MEDS: SODIUM BICARBONATE 650 MG TABLET PO SCH ×2 (13:17→17:00)
[2019-08-23 14:08] LABS: PLATELET ESTIMATE NORMAL
[2019-08-23 20:00] VITALS: BP 183/95
[2019-08-24] VITALS: BP 186/99
[2019-08-24] MEDS: METHYLPREDNISOLONE SOD SUCC 125 MG/2 ML VIAL IV SCH ×3 (00:11→12:25)
[2019-08-24] MEDS: CLONIDINE 0.3MG TABLET PO PRN ×3 (00:23→18:32)
[2019-08-24] MEDS: IPRATROPIUM/ALBUTEROL 0.5-3(2.5)MG/3ML NEB HHN SCH ×5 (01:35→17:09)
[2019-08-24 04:00] VITALS: BP 199/107
[2019-08-24] MEDS: SODIUM CHLORIDE 0.45% 1,000 ML IV SCH (06:12)
[2019-08-24] MEDS: HYDRALAZINE HCL 25MG TABLET PO SCH (06:13)
[2019-08-24 06:16] LABS: *AMPHETAMINES SCREEN URINE NEGATIVE (NEGATIVE); *BARBITURATES SCREEN URINE NEGATIVE (NEGATIVE); *BENZODIAZEPINES SCREEN URINE NEGATIVE (NEGATIVE)
[2019-08-24 06:17] LABS: *COCAINE SCREEN URINE PRESUMTIVE POSITIVE (NEGATIVE); CANNABINOID URINE SCREEN NEGATIVE (NEGATIVE); METHADONE URINE SCREEN NEGATIVE (NEGATIVE); OPIATES URINE SCREEN PRESUMTIVE POSITIVE (NEGATIVE); PHENCYCLIDINE URINE SCREEN NEGATIVE (NEGATIVE)
[2019-08-24 06:54] LABS: HEMATOCRIT. 33.6 % (42.0-52.0); HEMOGLOBIN. 10.8 g/dL (14.0-18.0); MEAN CORPUSCULAR HEMOGLOBIN 28.3 pg (28.0-32.0); MEAN CORPUSCULAR VOLUME 88.1 fL (80.0-94.0); MEAN PLATELET VOLUME 8.3 fl (7.4-10.4); PLATELET 336 x1000/uL (130-400); RED BLOOD CELL COUNT 3.81 mill/uL (4.7-6.1); RED CELL DISTRIBUTION WIDTH 15.9 % (11.6-14.6)
[2019-08-24 08:00] VITALS: BP 185/95
[2019-08-24] MEDS: SODIUM BICARBONATE 650 MG TABLET PO SCH (08:17)
[2019-08-24] MEDS: ASPIRIN 81MG EC TABLET PO SCH (08:17)
[2019-08-24] MEDS: METOPROLOL TARTRATE 25MG TABLET PO SCH ×2 (08:18→21:12)
[2019-08-24] MEDS: AMLODIPINE 10MG TABLET PO SCH (08:18)
[2019-08-24] MEDS: ENOXAPARIN 30MG/0.3ML SYR SUBCUT SCH (08:18)
[2019-08-24 09:11] LABS: COMPLEMENT C3 116 mg/dL (82-167)
[2019-08-24] MEDS ORDERED: LEVOFLOXACIN 250MG PREMIX 50 ML IV SCH (10:00)
[2019-08-24 11:08] LABS: PLATELET ESTIMATE NORMAL
[2019-08-24 12:00] VITALS: BP 200/108
[2019-08-24] MEDS: HYDRALAZINE 20MG/ML VIAL IV PRN (12:25)
[2019-08-24 13:10] LABS: ANTI-NUCLEAR ANTIBODIES DIRECT Positive (Negative)
[2019-08-24 15:00] VITALS: BP 160/81
[2019-08-24] MEDS ORDERED: THROAT LOZENGES-BENZOCAINE/MENTH/CETYLPYRD CL LOZENGES MM PRN (15:00)
[2019-08-24] MEDS: HYDRALAZINE HCL 100MG TABLET PO SCH ×2 (15:16→21:13)
[2019-08-24] MEDS: CLONIDINE 0.1MG TABLET PO SCH ×2 (15:16→21:13)
[2019-08-24 20:00] VITALS: BP 169/88
[2019-08-24] MEDS: METHYLPREDNISOLONE SOD SUCC 40 MG/ML VIAL IV SCH (21:12)
[2019-08-25] VITALS: BP 169/92
[2019-08-25] MEDS: IPRATROPIUM/ALBUTEROL 0.5-3(2.5)MG/3ML NEB HHN SCH ×2 (01:28→04:00)
[2019-08-25] MEDS: MORPHINE SULFATE 2 MG/ML CPJ (NOT FOR IM USE) IV PRN ×2 (02:20→08:49)
[2019-08-25 04:00] VITALS: BP 161/89
[2019-08-25] MEDS: CLONIDINE 0.1MG TABLET PO SCH (06:11)
[2019-08-25] MEDS: HYDRALAZINE HCL 100MG TABLET PO SCH (06:11)
[2019-08-25 06:19] LABS: HEMATOCRIT. 32.5 % (42.0-52.0); HEMOGLOBIN. 10.8 g/dL (14.0-18.0); MEAN CORPUSCULAR HEMOGLOBIN 29.3 pg (28.0-32.0); MEAN CORPUSCULAR VOLUME 87.8 fL (80.0-94.0); MEAN PLATELET VOLUME 8.5 fl (7.4-10.4); PLATELET 315 x1000/uL (130-400); RED CELL DISTRIBUTION WIDTH 15.8 % (11.6-14.6)
[2019-08-25 08:00] VITALS: BP 182/98
[2019-08-25] MEDS: ASPIRIN 81MG EC TABLET PO SCH (08:48)
[2019-08-25] MEDS: ENOXAPARIN 30MG/0.3ML SYR SUBCUT SCH (08:48)
[2019-08-25] MEDS: METOPROLOL TARTRATE 25MG TABLET PO SCH (08:48)
[2019-08-25] MEDS: AMLODIPINE 10MG TABLET PO SCH (08:48)
[2019-08-25] MEDS: METHYLPREDNISOLONE SOD SUCC 40 MG/ML VIAL IV SCH (08:49)
[2019-08-25 10:05] VITALS: BP 180/97
[2019-08-25] MEDS: HYDRALAZINE 20MG/ML VIAL IV PRN (10:26)
[2019-08-25 11:31] VITALS: BP 156/84
[2019-08-25 12:00] VITALS: BP 156/84
[2019-08-25 20:08] LABS: PLATELET ESTIMATE NORMAL
== END 2019-08-25 13:06 | disposition home or self-care (01) | DRG 205 ==
LOC: ER 06:01 → 7WST 07:50 → EDBEDREQTM 08:01 → ENRESERV 16:19
PROVIDERS: ADMIT Internal Medicine; ATTEND Internal Medicine
DX: J68.0 Bronchitis and pneumonitis due to chemicals, gases, fumes and vapors (principal); J96.00 Acute respiratory failure, unspecified whether with hypoxia or hypercapnia; N18.6 End stage renal disease; N17.9 Acute kidney failure, unspecified; I13.2 Hypertensive heart and chronic kidney disease with heart failure and with stage 5 chronic kidney disease, or end stage renal disease; E87.2 Acidosis; I50.32 Chronic diastolic (congestive) heart failure; E46 Unspecified protein-calorie malnutrition; B19.20 Unspecified viral hepatitis C without hepatic coma; D64.9 Anemia, unspecified; E78.5 Hyperlipidemia, unspecified; E87.5 Hyperkalemia; F14.90 Cocaine use, unspecified, uncomplicated; F17.210 Nicotine dependence, cigarettes, uncomplicated; F20.9 Schizophrenia, unspecified; F31.9 Bipolar disorder, unspecified; G89.29 Other chronic pain; I25.10 Atherosclerotic heart disease of native coronary artery without angina pectoris; I25.2 Old myocardial infarction; Z79.51 Long term (current) use of inhaled steroids; Z79.899 Other long term (current) drug therapy; Z88.8 Allergy status to other drugs, medicaments and biological substances; Z79.82 Long term (current) use of aspirin; Z68.27 Body mass index [BMI] 27.0-27.9, adult; E87.70 Fluid overload, unspecified
CPT/HCPCS: 36415; 36600; 71045; 76770; 80048; 80053; 80061; 80305; 81003; 82375; 82550; 82553; 82575; 82805; 83036; 83880; 84439; 84443; 84484; 85025; 85379; 86038; 86160; 87070; 87804; 93005; 93306; 94640; 94644; 96361; 96365; 96375; 99285; J0360; J1200; J1650; J1956; J2270; J2920; J2930; J3490; J7611; J7620

== ENCOUNTER 2019-11-25 07:03 | Inpatient (IN) | payer MEDICARE, MEDICAID, OTHER ==
[~2019-11-25] VITALS: Ht 175.3 cm; Wt 82.8 kg
[2019-11-25 08:44] LABS: BASOPHILS % 0.8 % (0.0-2.0); EOSINOPHILS % 2.4 % (0.0-5.0); HEMATOCRIT. 29.1 % (42.0-52.0); HEMOGLOBIN. 9.2 g/dL (14.0-18.0); LYMPHOCYTES % 11.9 % (20.0-50.0); MEAN CORPUSCULAR HEMOGLOBIN 28.8 pg (28.0-32.0); MEAN CORPUSCULAR VOLUME 91.4 fL (80.0-94.0); MEAN PLATELET VOLUME 8.1 fl (7.4-10.4); MONOCYTES % 10.2 % (2.0-8.0); NEUTROPHILS % 74.7 % (40.0-76.0); PLATELET 285 x1000/uL (130-400); RED BLOOD CELL COUNT 3.18 mill/uL (4.7-6.1); RED CELL DISTRIBUTION WIDTH 18.9 % (11.6-14.6)
[2019-11-25 08:52] LABS: CHLORIDE 108 mEq/L (98-107)
[2019-11-25 08:58] LABS: ETHANOL BLOOD < 10 mg/dL
[2019-11-25] MEDS ORDERED: ACETAMINOPHEN 325MG TABLET PO STA (09:26)
[2019-11-25] MEDS ORDERED: PIPERACILLIN/TAZ 3.375G PREMIX 50 ML IV ONE (09:30)
[2019-11-25] MEDS ORDERED: VANCOMYCIN 1 G PREMIX 200 ML IV ONE (09:30)
[2019-11-25] MEDS ORDERED: DEXTROSE 50% WATER 50ML SYRINGE IV ONE (10:00)
[2019-11-25] MEDS ORDERED: HYDRALAZINE 20MG/ML VIAL IV ONE (10:00)
[2019-11-25] MEDS ORDERED: CALCIUM GLUCONATE 1,000 MG in DEXT 5% WATER 100 ML IV ONE (10:00)
[2019-11-25] MEDS ORDERED: SODIUM BICARBONATE 8.4% 1 MEQ/ML 50ML SYR IV ONE (10:00)
[2019-11-25] MEDS ORDERED: INSULIN REGULAR (HUMULIN R) 300UNITS/3ML IV ONE (10:00)
[2019-11-25] MEDS: SODIUM BICARBONATE 100 MEQ in SODIUM CHLORIDE 0.45% 1,000 ML IV SCH (14:30)
[2019-11-25 14:43] LABS: *AMPHETAMINES SCREEN URINE NEGATIVE (NEGATIVE); *BARBITURATES SCREEN URINE NEGATIVE (NEGATIVE); *BENZODIAZEPINES SCREEN URINE NEGATIVE (NEGATIVE); *COCAINE SCREEN URINE PRESUMTIVE POSITIVE (NEGATIVE); METHADONE URINE SCREEN NEGATIVE (NEGATIVE)
[2019-11-25 14:44] LABS: CANNABINOID URINE SCREEN NEGATIVE (NEGATIVE); OPIATES URINE SCREEN NEGATIVE (NEGATIVE); PHENCYCLIDINE URINE SCREEN NEGATIVE (NEGATIVE)
[2019-11-25] MEDS ORDERED: ONDANSETRON HCL 4MG/2ML INJ IV PRN (15:45)
[2019-11-25] MEDS ORDERED: ACETAMINOPHEN 325MG TABLET PO PRN (15:45)
[2019-11-25] MEDS ORDERED: IPRATROPIUM/ALBUTEROL 0.5-3(2.5)MG/3ML NEB HHN PRN (15:45)
[2019-11-25] MEDS ORDERED: CLONIDINE 0.1MG TABLET PO PRN (15:45)
[2019-11-25 15:59] VITALS: BP 176/109
[2019-11-25 16:09] VITALS: BP 176/109
[2019-11-25] MEDS: ASPIRIN 81MG EC TABLET PO SCH (16:29)
[2019-11-25] MEDS: CLONIDINE 0.1MG TABLET PO SCH (16:29)
[2019-11-25 20:00] VITALS: BP 176/109
[2019-11-25] MEDS: ATORVASTATIN CALCIUM 10MG TABLET PO SCH (21:28)
[2019-11-25] MEDS: NIFEDIPINE XL 60MG TAB PO SCH (21:29)
[2019-11-26] VITALS (7 sets, daily range): BP systolic 107–182; BP diastolic 66–113
[2019-11-26] MEDS: NIFEDIPINE XL 60MG TAB PO SCH ×2 (09:05→20:49)
[2019-11-26] MEDS: ASPIRIN 81MG EC TABLET PO SCH (09:05)
[2019-11-26] MEDS: CLONIDINE 0.1MG TABLET PO SCH ×2 (09:05→16:10)
[2019-11-26 09:13] LABS: BASOPHILS % 0.9 % (0.0-2.0); EOSINOPHILS % 4.8 % (0.0-5.0); HEMATOCRIT. 26.6 % (42.0-52.0); HEMOGLOBIN. 8.6 g/dL (14.0-18.0); LYMPHOCYTES % 10.7 % (20.0-50.0); MEAN CORPUSCULAR HEMOGLOBIN 28.9 pg (28.0-32.0); MEAN CORPUSCULAR VOLUME 88.9 fL (80.0-94.0); MEAN PLATELET VOLUME 8.3 fl (7.4-10.4); MONOCYTES % 7.3 % (2.0-8.0); NEUTROPHILS % 76.3 % (40.0-76.0); PLATELET 271 x1000/uL (130-400); RED BLOOD CELL COUNT 2.99 mill/uL (4.7-6.1); RED CELL DISTRIBUTION WIDTH 18.1 % (11.6-14.6)
[2019-11-26 09:18] LABS: INR 1.1; PROTHROMBIN TIME 12.4 sec (9.6-11.0)
[2019-11-26 09:27] LABS: PHOSPHORUS 4.2 mg/dL (2.5-4.9)
[2019-11-26 09:39] LABS: FOLIC ACID (FOLATE) SERUM 12.8 ng/mL (>5.38)
[2019-11-26] MEDS ORDERED: GUAIFENESIN 200MG/10ML SUGAR FREE UDC PO PRN (11:15)
[2019-11-26] MEDS ORDERED: BENZONATATE 100MG CAPSULE PO PRN (11:30)
[2019-11-26] MEDS: SODIUM BICARBONATE 100 MEQ in SODIUM CHLORIDE 0.45% 1,000 ML IV SCH (11:51)
[2019-11-26] MEDS: GUAIFENESIN/CODEINE 200-20MG/10ML UDC PO PRN ×2 (12:27→20:57)
[2019-11-26] MEDS: HYDROCODONE/ACETAMINOPHEN 5/325MG TABLET PO PRN (12:27)
[2019-11-26] MEDS: IRON SUCROSE COMPLEX 100 MG/5 ML ML IV SCH (16:47)
[2019-11-26] MEDS: ATORVASTATIN CALCIUM 10MG TABLET PO SCH (20:49)
[2019-11-26] MEDS: LORAZEPAM 0.5MG TABLET PO PRN (20:52)
[2019-11-27] MEDS: SODIUM BICARBONATE 100 MEQ in SODIUM CHLORIDE 0.45% 1,000 ML IV SCH (03:50)
[2019-11-27 04:02] VITALS: BP 115/71
[2019-11-27 08:00] VITALS: BP 110/72
[2019-11-27] MEDS: NIFEDIPINE XL 60MG TAB PO SCH ×2 (08:48→21:31)
[2019-11-27] MEDS: CLONIDINE 0.1MG TABLET PO SCH ×2 (08:48→17:32)
[2019-11-27] MEDS: ASPIRIN 81MG EC TABLET PO SCH (08:53)
[2019-11-27] MEDS: LORAZEPAM 0.5MG TABLET PO PRN (08:53)
[2019-11-27] MEDS: POLYETHYLENE GLYCOL 3350 (17GM) 1 DOSE PACK PO SCH (09:42)
[2019-11-27] MEDS: FUROSEMIDE 40MG/4ML VIAL IVP SCH (11:55)
[2019-11-27 12:00] VITALS: BP 126/77
[2019-11-27 15:42] LABS: BASOPHILS % 0.4 % (0.0-2.0); EOSINOPHILS % 0.1 % (0.0-5.0); HEMATOCRIT. 27.9 % (42.0-52.0); HEMOGLOBIN. 9.1 g/dL (14.0-18.0); LYMPHOCYTES % 10.2 % (20.0-50.0); MEAN CORPUSCULAR HEMOGLOBIN 28.9 pg (28.0-32.0); MEAN CORPUSCULAR VOLUME 88.6 fL (80.0-94.0); MEAN PLATELET VOLUME 8.6 fl (7.4-10.4); MONOCYTES % 13.4 % (2.0-8.0); NEUTROPHILS % 75.9 % (40.0-76.0); PLATELET 318 x1000/uL (130-400); RED BLOOD CELL COUNT 3.14 mill/uL (4.7-6.1); RED CELL DISTRIBUTION WIDTH 18.3 % (11.6-14.6)
[2019-11-27 16:00] VITALS: BP 150/80
[2019-11-27 16:19] LABS: PHOSPHORUS 5.9 mg/dL (2.5-4.9)
[2019-11-27] MEDS: IRON SUCROSE COMPLEX 100 MG/5 ML ML IV SCH (17:32)
[2019-11-27] MEDS: SODIUM BICARBONATE 650 MG TABLET PO SCH (18:49)
[2019-11-27] MEDS ORDERED: LACTULOSE 20G/30ML UDC PO ONE (19:15)
[2019-11-27] MEDS ORDERED: NA PHOS,M-B/NA PHOS,DI-BA ENEMA 118ML PR ONE (19:15)
[2019-11-27] MEDS ORDERED: SODIUM POLYSTYRENE SULFONATE 15 G/60 ML BOT PO NR (20:00)
[2019-11-27 20:53] VITALS: BP 152/77
[2019-11-27] MEDS: ATORVASTATIN CALCIUM 10MG TABLET PO SCH (21:31)
[2019-11-28] VITALS (7 sets, daily range): BP systolic 118–145; BP diastolic 57–78
[2019-11-28 09:04] LABS: BASOPHILS % 0.5 % (0.0-2.0); EOSINOPHILS % 0.8 % (0.0-5.0); HEMOGLOBIN. 8.2 g/dL (14.0-18.0); LYMPHOCYTES % 9.8 % (20.0-50.0); MEAN CORPUSCULAR HEMOGLOBIN 28.6 pg (28.0-32.0); MEAN CORPUSCULAR VOLUME 87.1 fL (80.0-94.0); MEAN PLATELET VOLUME 7.5 fl (7.4-10.4); MONOCYTES % 7.3 % (2.0-8.0); NEUTROPHILS % 81.6 % (40.0-76.0); PLATELET 274 x1000/uL (130-400); RED BLOOD CELL COUNT 2.87 mill/uL (4.7-6.1)
[2019-11-28] MEDS: SODIUM BICARBONATE 650 MG TABLET PO SCH ×3 (09:25→16:44)
[2019-11-28] MEDS: POLYETHYLENE GLYCOL 3350 (17GM) 1 DOSE PACK PO SCH ×2 (09:26→23:03)
[2019-11-28] MEDS: ASPIRIN 81MG EC TABLET PO SCH (09:26)
[2019-11-28] MEDS: FUROSEMIDE 40MG/4ML VIAL IVP SCH (09:26)
[2019-11-28] MEDS: CLONIDINE 0.1MG TABLET PO SCH ×2 (09:26→16:44)
[2019-11-28] MEDS: NIFEDIPINE XL 60MG TAB PO SCH (09:26)
[2019-11-28] MEDS ORDERED: LOSARTAN POTASSIUM 50 MG TABLET PO SCH (10:45)
[2019-11-28] MEDS: ATORVASTATIN CALCIUM 10MG TABLET PO SCH (21:22)
[2019-11-28] MEDS: HYDROCODONE/ACETAMINOPHEN 5/325MG TABLET PO PRN (22:06)
[2019-11-28] MEDS: DOCUSATE SODIUM 100MG CAPSULE PO SCH (23:03)
[2019-11-29 00:57] VITALS: BP 124/71
[2019-11-29 04:00] VITALS: BP 127/60
[2019-11-29 07:07] LABS: BASOPHILS % 0.6 % (0.0-2.0); EOSINOPHILS % 6.1 % (0.0-5.0); HEMATOCRIT. 26.8 % (42.0-52.0); HEMOGLOBIN. 8.9 g/dL (14.0-18.0); MEAN CORPUSCULAR VOLUME 87.8 fL (80.0-94.0); NEUTROPHILS % 72.3 % (40.0-76.0); PLATELET 250 x1000/uL (130-400); RED BLOOD CELL COUNT 3.05 mill/uL (4.7-6.1)
[2019-11-29 08:30] VITALS: BP 117/64
[2019-11-29] MEDS: DOCUSATE SODIUM 100MG CAPSULE PO SCH ×2 (08:51→17:23)
[2019-11-29] MEDS: FUROSEMIDE 40MG/4ML VIAL IVP SCH (08:51)
[2019-11-29] MEDS: POLYETHYLENE GLYCOL 3350 (17GM) 1 DOSE PACK PO SCH ×2 (08:51→17:23)
[2019-11-29] MEDS: SODIUM BICARBONATE 650 MG TABLET PO SCH ×3 (08:51→17:23)
[2019-11-29] MEDS: CLONIDINE 0.1MG TABLET PO SCH ×2 (08:51→17:23)
[2019-11-29] MEDS: ASPIRIN 81MG EC TABLET PO SCH (09:00)
[2019-11-29] MEDS: POTASSIUM CHLORIDE 20MEQ TABLET SR PO NR ×2 (11:16→12:17)
[2019-11-29 12:30] VITALS: BP 119/66
[2019-11-29 16:00] VITALS: BP 118/60
[2019-11-29] MEDS: HYDROCODONE/ACETAMINOPHEN 5/325MG TABLET PO PRN (17:28)
[2019-11-29 20:47] VITALS: BP 106/56
[2019-11-29] MEDS: ATORVASTATIN CALCIUM 10MG TABLET PO SCH (21:35)
[2019-11-30 00:26] VITALS: BP 144/65
[2019-11-30] MEDS: HYDROCODONE/ACETAMINOPHEN 5/325MG TABLET PO PRN (02:03)
[2019-11-30 04:30] VITALS: BP 127/66
[2019-11-30 06:58] LABS: BASOPHILS % 0.6 % (0.0-2.0); EOSINOPHILS % 7.3 % (0.0-5.0); HEMATOCRIT. 27.2 % (42.0-52.0); HEMOGLOBIN. 9.1 g/dL (14.0-18.0); LYMPHOCYTES % 14.4 % (20.0-50.0); MEAN CORPUSCULAR HEMOGLOBIN 29.5 pg (28.0-32.0); MEAN CORPUSCULAR VOLUME 88.2 fL (80.0-94.0); NEUTROPHILS % 66.7 % (40.0-76.0); PLATELET 239 x1000/uL (130-400); RED BLOOD CELL COUNT 3.09 mill/uL (4.7-6.1); RED CELL DISTRIBUTION WIDTH 17.6 % (11.6-14.6)
[2019-11-30 08:00] VITALS: BP 131/62
[2019-11-30] MEDS ORDERED: FUROSEMIDE 40MG TABLET PO SCH (09:00)
[2019-11-30] MEDS: SODIUM BICARBONATE 650 MG TABLET PO SCH ×2 (09:48→13:00)
[2019-11-30] MEDS: DOCUSATE SODIUM 100MG CAPSULE PO SCH (09:49)
[2019-11-30] MEDS: CLONIDINE 0.1MG TABLET PO SCH (09:49)
[2019-11-30] MEDS: ASPIRIN 81MG EC TABLET PO SCH (09:49)
[2019-11-30] MEDS: POLYETHYLENE GLYCOL 3350 (17GM) 1 DOSE PACK PO SCH (09:49)
[2019-11-30 12:00] VITALS: BP 138/72
[2019-11-30] MEDS ORDERED: FURO40TA5 MT (12:28)
[2019-11-30] MEDS ORDERED: FERR324T4 MT (12:29)
[2019-11-30] MEDS ORDERED: HYDR-4001 MT (12:40)
[2019-11-30 14:59] VITALS: BP 138/72
[2019-11-30 16:00] VITALS: BP 147/75
== END 2019-11-30 17:00 | disposition home or self-care (01) | DRG 682 ==
LOC: ER 07:15 → 7WST 09:58 → EDBEDREQ 10:02 → EDBEDREQTM 10:02 → ENRESERV 13:58 → ER 15:08 → 6WST 11-26 15:51
PROVIDERS: ADMIT Internal Medicine; ATTEND Internal Medicine
DX: N17.9 Acute kidney failure, unspecified (principal); J96.00 Acute respiratory failure, unspecified whether with hypoxia or hypercapnia; I50.43 Acute on chronic combined systolic (congestive) and diastolic (congestive) heart failure; E44.1 Mild protein-calorie malnutrition; E87.2 Acidosis; I13.2 Hypertensive heart and chronic kidney disease with heart failure and with stage 5 chronic kidney disease, or end stage renal disease; I16.1 Hypertensive emergency; I42.9 Cardiomyopathy, unspecified; I47.2 Ventricular tachycardia; N18.6 End stage renal disease; B19.20 Unspecified viral hepatitis C without hepatic coma; D63.8 Anemia in other chronic diseases classified elsewhere; D72.810 Lymphocytopenia; E78.5 Hyperlipidemia, unspecified; D72.821 Monocytosis (symptomatic); E87.5 Hyperkalemia; F17.210 Nicotine dependence, cigarettes, uncomplicated; F20.9 Schizophrenia, unspecified; I25.10 Atherosclerotic heart disease of native coronary artery without angina pectoris; J44.9 Chronic obstructive pulmonary disease, unspecified; K76.0 Fatty (change of) liver, not elsewhere classified; F14.10 Cocaine abuse, uncomplicated; I27.20 Pulmonary hypertension, unspecified; R79.89 Other specified abnormal findings of blood chemistry; R74.0 Nonspecific elevation of levels of transaminase and lactic acid dehydrogenase [LDH]; I16.0 Hypertensive urgency; F19.10 Other psychoactive substance abuse, uncomplicated; Z03.818 Encounter for observation for suspected exposure to other biological agents ruled out; I25.2 Old myocardial infarction; Z95.5 Presence of coronary angioplasty implant and graft; Z91.15 Patient's noncompliance with renal dialysis; Z68.26 Body mass index [BMI] 26.0-26.9, adult; Z99.2 Dependence on renal dialysis; Z79.899 Other long term (current) drug therapy
CPT/HCPCS: 36415; 71045; 74018; 80048; 80053; 80076; 80305; 80320; 82575; 82607; 82728; 82746; 83540; 83550; 83735; 83880; 84100; 84132; 84145; 84484; 85025; 87635; 87804; 93005; 93306; 99291; J0360; J0610; J1815; J1940; J2543; J3370; J3490; J7060; G0480; U0003-CS

== ENCOUNTER 2020-02-22 20:37 | Inpatient (IN) | payer MEDICARE, OTHER, MEDICAID ==
[~2020-02-22] VITALS: Ht 175.3 cm; Wt 87.5 kg
[~2020-02-22 20:37] MED LIST changes: +FERR324T4 MT; +FURO40TA5 MT; +HYDR-4001 MT
[2020-02-22 22:12] LABS: BASOPHILS % 1.3 % (0.0-2.0); EOSINOPHILS % 6.4 % (0.0-5.0); HEMATOCRIT. 28.4 % (42.0-52.0); HEMOGLOBIN. 9.6 g/dL (14.0-18.0); LYMPHOCYTES % 15.8 % (20.0-50.0); MEAN PLATELET VOLUME 7.4 fl (7.4-10.4); MONOCYTES % 10.3 % (2.0-8.0); NEUTROPHILS % 66.2 % (40.0-76.0); PLATELET 255 x1000/uL (130-400); RED CELL DISTRIBUTION WIDTH 18.1 % (11.6-14.6)
[2020-02-22 22:16] LABS: CHLORIDE 106 mEq/L (98-107)
[2020-02-23] MEDS ORDERED: CLONIDINE 0.2MG TABLET PO ONE (00:30)
[2020-02-23 03:30] VITALS: BP 159/80
[2020-02-23] MEDS ORDERED: HYDR-4135 MT (03:50)
[2020-02-23] MEDS ORDERED: TICA90TA MT (03:52)
[2020-02-23] MEDS ORDERED: NITR0.4T49 SL (03:53)
[2020-02-23] MEDS ORDERED: ISOS20TA57 PO (03:57)
[2020-02-23] MEDS ORDERED: GUAIFENESIN 200MG/10ML SUGAR FREE UDC PO PRN (04:30)
[2020-02-23] MEDS ORDERED: ONDANSETRON HCL 4MG/2ML INJ IV PRN (04:30)
[2020-02-23] MEDS: AMLODIPINE 10MG TABLET PO SCH ×3 (04:30→10:09)
[2020-02-23] MEDS ORDERED: ENOXAPARIN 40MG/0.4ML SYR SUBCUT SCH (04:30)
[2020-02-23] MEDS ORDERED: ACETAMINOPHEN 325MG TABLET PO PRN (04:30)
[2020-02-23] MEDS ORDERED: MAGNESIUM/ALUMINUM HYDROXIDE/SIMETHICONE 30ML UDC PO PRN (04:30)
[2020-02-23] MEDS ORDERED: IPRATROPIUM/ALBUTEROL 0.5-3(2.5)MG/3ML NEB NEB PRN (04:30)
[2020-02-23 08:00] VITALS: BP 159/83
[2020-02-23] MEDS ORDERED: NITROGLYCERIN 0.4MG TABLET SL SL PRN (09:30)
[2020-02-23] MEDS: ENOXAPARIN 30MG/0.3ML SYR SUBCUT SCH ×2 (10:03→10:09)
[2020-02-23 11:54] VITALS: BP 128/77
[2020-02-23] MEDS ORDERED: PNEUMOCOCCAL 23-VAL P-SAC VAC 0.5 ML IM ONE (12:00)
[2020-02-23] MEDS: ISOSORBIDE MONONITRATE 60MG TABLET SR 24HR PO SCH (13:39)
[2020-02-23] MEDS: HYDRALAZINE HCL 50MG TABLET PO SCH ×3 (13:40→22:00)
[2020-02-23 15:26] LABS: HEPATITIS B SURFACE AB 4.4 mIU/mL
[2020-02-23 15:36] LABS: HEPATITIS B SURFACE ANTIGEN NEGATIVE
[2020-02-23] MEDS: TICAGRELOR 90 MG TABLET PO SCH (15:39)
[2020-02-23] MEDS: ASPIRIN 81MG TABLET PO SCH (15:39)
[2020-02-23 16:00] VITALS: BP 108/76
[2020-02-23 16:06] LABS: HEPATITIS A AB IGM NEGATIVE (NEGATIVE)
[2020-02-23 20:00] VITALS: BP 152/75
[2020-02-23] MEDS: ATORVASTATIN CALCIUM 10MG TABLET PO SCH ×2 (21:00→21:41)
[2020-02-24] VITALS: BP 159/85
[2020-02-24 04:00] VITALS: BP 153/88
[2020-02-24] MEDS: HYDRALAZINE HCL 50MG TABLET PO SCH ×3 (06:16→21:24)
[2020-02-24 06:25] LABS: HEMATOCRIT. 30.1 % (42.0-52.0); HEMOGLOBIN. 9.9 g/dL (14.0-18.0); MEAN CORPUSCULAR HEMOGLOBIN 28.2 pg (28.0-32.0); MEAN PLATELET VOLUME 7.7 fl (7.4-10.4); PLATELET 249 x1000/uL (130-400); RED BLOOD CELL COUNT 3.49 mill/uL (4.7-6.1); RED CELL DISTRIBUTION WIDTH 17.9 % (11.6-14.6)
[2020-02-24 06:46] LABS: CHLORIDE 105 mEq/L (98-107)
[2020-02-24 06:55] LABS: LDL CHOLESTEROL 53 mg/dL (5-100)
[2020-02-24 06:57] LABS: HDL CHOLESTEROL 51 mg/dL (40-59)
[2020-02-24 08:00] VITALS: BP 170/83
[2020-02-24] MEDS: CLONIDINE 0.1MG TABLET PO PRN ×2 (08:24→20:34)
[2020-02-24] MEDS: TICAGRELOR 90 MG TABLET PO SCH ×2 (08:24→17:17)
[2020-02-24] MEDS: ISOSORBIDE MONONITRATE 60MG TABLET SR 24HR PO SCH (08:24)
[2020-02-24] MEDS: ASPIRIN 81MG TABLET PO SCH (08:25)
[2020-02-24 08:45] LABS: TOTAL IRON BINDING CAPACITY 302 ug/dL (250-450)
[2020-02-24 11:09] LABS: PLATELET ESTIMATE NORMAL
[2020-02-24 12:00] VITALS: BP 138/70
[2020-02-24 16:00] VITALS: BP 134/72
[2020-02-24 20:00] VITALS: BP 166/82
[2020-02-24] MEDS: ATORVASTATIN CALCIUM 10MG TABLET PO SCH (20:34)
[2020-02-25] VITALS (8 sets, daily range): BP systolic 120–173; BP diastolic 59–94
[2020-02-25] MEDS: HYDRALAZINE HCL 50MG TABLET PO SCH ×3 (05:26→21:30)
[2020-02-25 07:09] LABS: BASOPHILS % 0.7 % (0.0-2.0); EOSINOPHILS % 5.3 % (0.0-5.0); HEMATOCRIT. 28.9 % (42.0-52.0); HEMOGLOBIN. 9.7 g/dL (14.0-18.0); LYMPHOCYTES % 17.1 % (20.0-50.0); MEAN CORPUSCULAR HEMOGLOBIN 28.8 pg (28.0-32.0); MEAN PLATELET VOLUME 7.9 fl (7.4-10.4); MONOCYTES % 8.4 % (2.0-8.0); NEUTROPHILS % 68.5 % (40.0-76.0); PLATELET 253 x1000/uL (130-400); RED BLOOD CELL COUNT 3.37 mill/uL (4.7-6.1); RED CELL DISTRIBUTION WIDTH 17.7 % (11.6-14.6)
[2020-02-25] MEDS: AMLODIPINE 10MG TABLET PO SCH (08:54)
[2020-02-25] MEDS: TICAGRELOR 90 MG TABLET PO SCH ×2 (08:55→17:04)
[2020-02-25] MEDS: ISOSORBIDE MONONITRATE 60MG TABLET SR 24HR PO SCH (08:55)
[2020-02-25] MEDS: ASPIRIN 81MG TABLET PO SCH (08:55)
[2020-02-25] MEDS: ENOXAPARIN 30MG/0.3ML SYR SUBCUT SCH (08:57)
[2020-02-25] MEDS: CLONIDINE 0.1MG TABLET PO PRN (17:04)
[2020-02-25] MEDS: ATORVASTATIN CALCIUM 10MG TABLET PO SCH (21:29)
[2020-02-26] VITALS: BP 168/81
[2020-02-26] MEDS: CLONIDINE 0.1MG TABLET PO PRN ×2 (00:22→17:26)
[2020-02-26 04:00] VITALS: BP 162/72
[2020-02-26] MEDS: HYDROCODONE/ACETAMINOPHEN 5/325MG TABLET PO PRN (04:43)
[2020-02-26] MEDS: HYDRALAZINE HCL 50MG TABLET PO SCH ×4 (05:21→21:07)
[2020-02-26 08:00] VITALS: BP 149/64
[2020-02-26] MEDS: ISOSORBIDE MONONITRATE 60MG TABLET SR 24HR PO SCH (09:40)
[2020-02-26] MEDS: AMLODIPINE 10MG TABLET PO SCH (09:40)
[2020-02-26] MEDS: ENOXAPARIN 30MG/0.3ML SYR SUBCUT SCH (09:40)
[2020-02-26] MEDS: ASPIRIN 81MG TABLET PO SCH (09:40)
[2020-02-26] MEDS: TICAGRELOR 90 MG TABLET PO SCH ×3 (09:40→17:26)
[2020-02-26 12:00] VITALS: BP 200/87
[2020-02-26 16:00] VITALS: BP 174/90
[2020-02-26] MEDS: DOCUSATE SODIUM 100MG CAPSULE PO PRN (16:21)
[2020-02-26] MEDS ORDERED: FURO40TA5 PO (17:57)
[2020-02-26] MEDS ORDERED: MULT-1116 PO (17:57)
[2020-02-26] MEDS ORDERED: FOLI-43 PO (17:57)
[2020-02-26] MEDS ORDERED: ASPI-1497 PO (17:57)
[2020-02-26] MEDS ORDERED: CARV6.2548 PO (17:57)
[2020-02-26] MEDS: CARVEDILOL 6.25 MG TABLET PO SCH (18:27)
[2020-02-26 20:00] VITALS: BP 169/82
[2020-02-26] MEDS: ATORVASTATIN CALCIUM 10MG TABLET PO SCH (21:07)
[2020-02-27] VITALS: BP 151/67
[2020-02-27] MEDS: HYDROCODONE/ACETAMINOPHEN 5/325MG TABLET PO PRN ×2 (00:14→05:09)
[2020-02-27 04:00] VITALS: BP 162/87
[2020-02-27] MEDS: HYDRALAZINE HCL 50MG TABLET PO SCH ×3 (05:08→21:36)
[2020-02-27 06:53] LABS: BASOPHILS % 1.1 % (0.0-2.0); EOSINOPHILS % 6.5 % (0.0-5.0); HEMATOCRIT. 30.9 % (42.0-52.0); HEMOGLOBIN. 9.9 g/dL (14.0-18.0); MEAN CORPUSCULAR HEMOGLOBIN 27.9 pg (28.0-32.0); MONOCYTES % 9.4 % (2.0-8.0); PLATELET 292 x1000/uL (130-400); RED BLOOD CELL COUNT 3.55 mill/uL (4.7-6.1); RED CELL DISTRIBUTION WIDTH 18.3 % (11.6-14.6)
[2020-02-27 08:00] VITALS: BP 168/76
[2020-02-27] MEDS: ASPIRIN 81MG TABLET PO SCH (08:40)
[2020-02-27] MEDS: CLONIDINE 0.1MG TABLET PO PRN (08:41)
[2020-02-27] MEDS: TICAGRELOR 90 MG TABLET PO SCH ×2 (08:41→16:22)
[2020-02-27] MEDS: ISOSORBIDE MONONITRATE 60MG TABLET SR 24HR PO SCH (08:41)
[2020-02-27] MEDS: CARVEDILOL 6.25 MG TABLET PO SCH ×2 (08:42→21:36)
[2020-02-27] MEDS: ENOXAPARIN 30MG/0.3ML SYR SUBCUT SCH (08:42)
[2020-02-27 12:00] VITALS: BP 181/84
[2020-02-27 16:00] VITALS: BP 160/97
[2020-02-27] MEDS: DOCUSATE SODIUM 100MG CAPSULE PO PRN (16:22)
[2020-02-27 20:00] VITALS: BP 189/103
[2020-02-27] MEDS ORDERED: LACTULOSE 20G/30ML UDC PO PRN (21:15)
[2020-02-27] MEDS: ATORVASTATIN CALCIUM 10MG TABLET PO SCH (21:35)
[2020-02-28] VITALS: BP 175/77
[2020-02-28 04:00] VITALS: BP 188/75
[2020-02-28] MEDS: HYDRALAZINE HCL 50MG TABLET PO SCH ×2 (05:07→14:38)
[2020-02-28] MEDS: HYDROCODONE/ACETAMINOPHEN 5/325MG TABLET PO PRN ×2 (05:08→11:56)
[2020-02-28 07:06] LABS: BASOPHILS % 1.2 % (0.0-2.0); EOSINOPHILS % 8.9 % (0.0-5.0); HEMATOCRIT. 27.8 % (42.0-52.0); HEMOGLOBIN. 9.2 g/dL (14.0-18.0); LYMPHOCYTES % 19.5 % (20.0-50.0); MEAN CORPUSCULAR HEMOGLOBIN 28.6 pg (28.0-32.0); MEAN CORPUSCULAR VOLUME 86.1 fL (80.0-94.0); MONOCYTES % 13.7 % (2.0-8.0); NEUTROPHILS % 56.7 % (40.0-76.0); PLATELET 315 x1000/uL (130-400); RED BLOOD CELL COUNT 3.23 mill/uL (4.7-6.1); RED CELL DISTRIBUTION WIDTH 17.9 % (11.6-14.6)
[2020-02-28 08:00] VITALS: BP 185/87
[2020-02-28] MEDS: ASPIRIN 81MG TABLET PO SCH (08:19)
[2020-02-28] MEDS: CARVEDILOL 6.25 MG TABLET PO SCH (08:20)
[2020-02-28] MEDS: TICAGRELOR 90 MG TABLET PO SCH (08:20)
[2020-02-28] MEDS: ISOSORBIDE MONONITRATE 60MG TABLET SR 24HR PO SCH (08:20)
[2020-02-28] MEDS: ENOXAPARIN 30MG/0.3ML SYR SUBCUT SCH (08:22)
[2020-02-28 11:46] VITALS: BP 156/71
[2020-02-28 14:43] VITALS: BP 156/71
== END 2020-02-28 15:42 | disposition home or self-care (01) | DRG 291 ==
LOC: ER 20:37 → 8WST 02-23 00:39 → EDBEDREQ 02-23 00:41 → EDBEDREQTM 02-23 00:41 → ENRESERV 02-23 01:55
PROVIDERS: ADMIT Hospitalist; ATTEND Hospitalist
PROC: 5A1D70Z Performance of Urinary Filtration, Intermittent, Less than 6 Hours Per Day (ICD-10-PCS; principal; 2020-02-23)
PROC: 5A1D70Z Performance of Urinary Filtration, Intermittent, Less than 6 Hours Per Day (ICD-10-PCS; 2020-02-26)
PROC: 5A1D70Z Performance of Urinary Filtration, Intermittent, Less than 6 Hours Per Day (ICD-10-PCS; 2020-02-28)
DX: I13.2 Hypertensive heart and chronic kidney disease with heart failure and with stage 5 chronic kidney disease, or end stage renal disease (principal); N18.6 End stage renal disease; I50.33 Acute on chronic diastolic (congestive) heart failure; J44.9 Chronic obstructive pulmonary disease, unspecified; I25.2 Old myocardial infarction; E78.5 Hyperlipidemia, unspecified; D63.1 Anemia in chronic kidney disease; F20.9 Schizophrenia, unspecified; B19.20 Unspecified viral hepatitis C without hepatic coma; F17.200 Nicotine dependence, unspecified, uncomplicated; F14.10 Cocaine abuse, uncomplicated; K76.0 Fatty (change of) liver, not elsewhere classified; I25.10 Atherosclerotic heart disease of native coronary artery without angina pectoris; Z20.828 Contact with and (suspected) exposure to other viral communicable diseases; Z99.2 Dependence on renal dialysis; Z88.6 Allergy status to analgesic agent; Z88.8 Allergy status to other drugs, medicaments and biological substances; Z79.899 Other long term (current) drug therapy
CPT/HCPCS: 36415; 71045; 80048; 80053; 80061; 83540; 83550; 83880; 84484; 85025; 86705; 86706; 86709; 86803; 87340; 90732; 93005; 93970; 99285; J1650; J2405; J8499; U0003-CS

== ENCOUNTER 2020-03-22 17:50 | Inpatient (IN) | payer MEDICARE, OTHER ==
[~2020-03-22] VITALS: Ht 175.3 cm; Wt 77.4 kg
[~2020-03-22 17:50] MED LIST changes: +CARV6.2548 PO; -CLON0.1T PO; -FERR324T4 MT; +FOLI-43 PO; -FURO40TA5 MT; +FURO40TA5 PO; -HYDR-4001 MT; +HYDR-4135 MT; -IPRA3AMP9 HHN; +ISOS20TA57 PO; +MULT-1116 PO; +NITR0.4T49 SL; -P20 PO; -PULM50 HHN; +TICA90TA MT
[2020-03-22] MEDS ORDERED: MORPHINE SULFATE 4 MG/ML CPJ (NOT FOR IM USE) IV STA (18:56)
[2020-03-22] MEDS ORDERED: ONDANSETRON HCL 4MG/2ML INJ IV STA (18:56)
[2020-03-22 19:20] LABS: BASOPHILS % 1.2 % (0.0-2.0); EOSINOPHILS % 4.8 % (0.0-5.0); HEMATOCRIT. 26.7 % (42.0-52.0); HEMOGLOBIN. 8.9 g/dL (14.0-18.0); LYMPHOCYTES % 12.5 % (20.0-50.0); MEAN CORPUSCULAR VOLUME 87.1 fL (80.0-94.0); MEAN PLATELET VOLUME 7.3 fl (7.4-10.4); MONOCYTES % 9.6 % (2.0-8.0); NEUTROPHILS % 71.9 % (40.0-76.0); PLATELET 295 x1000/uL (130-400); RED BLOOD CELL COUNT 3.07 mill/uL (4.7-6.1); RED CELL DISTRIBUTION WIDTH 17.8 % (11.6-14.6)
[2020-03-22 19:21] LABS: CHLORIDE 106 mEq/L (98-107)
[2020-03-22] MEDS ORDERED: ASPIRIN 81MG TABLET PO ONE (22:45)
[2020-03-22] MEDS ORDERED: METRONIDAZOLE 500MG TABLET PO ONE (22:45)
[2020-03-22] MEDS ORDERED: CEFTRIAXONE 1 G PREMIX 50 ML IV ONE (22:45)
[2020-03-23] MEDS ORDERED: ONDANSETRON HCL 4MG/2ML INJ IV ONE (01:00)
[2020-03-23] MEDS ORDERED: MORPHINE SULFATE 4 MG/ML CPJ (NOT FOR IM USE) IV ONE (01:00)
[2020-03-23 08:00] VITALS: BP_SYST 157; BP_SYST 159; BP_DIAS 89
[2020-03-23] MEDS ORDERED: ACETAMINOPHEN 325MG TABLET PO PRN (09:00)
[2020-03-23] MEDS ORDERED: ONDANSETRON HCL 4MG/2ML INJ IV PRN (09:00)
[2020-03-23] MEDS ORDERED: DIPHENHYDRAMINE 50MG/ML VIAL IV PRN (09:00)
[2020-03-23] MEDS ORDERED: IPRATROPIUM/ALBUTEROL 0.5-3(2.5)MG/3ML NEB HHN PRN (09:00)
[2020-03-23] MEDS ORDERED: REGADENOSON 0.4 MG/5 ML IV NR (11:00)
[2020-03-23 12:00] VITALS: BP 161/91
[2020-03-23] MEDS: CARVEDILOL 6.25 MG TABLET PO SCH ×2 (12:00→22:16)
[2020-03-23 12:40] LABS: PHOSPHORUS 5.5 mg/dL (2.5-4.9)
[2020-03-23] MEDS: NITROGLYCERIN OINT 1GM/INCH UDPKT TD SCH ×2 (14:00→22:16)
[2020-03-23 16:00] VITALS: BP 169/77
[2020-03-23] MEDS ORDERED: HYDR-4001 PO (16:02)
[2020-03-23] MEDS: ASPIRIN 81MG EC TABLET PO SCH (17:26)
[2020-03-23] MEDS: TICAGRELOR 90 MG TABLET PO SCH (17:26)
[2020-03-23 20:00] VITALS: BP 180/85
[2020-03-23] MEDS: ATORVASTATIN CALCIUM 20MG TABLET PO SCH (22:15)
[2020-03-24] VITALS: BP 154/89
[2020-03-24 04:00] VITALS: BP 172/84
[2020-03-24] MEDS: MORPHINE SULFATE 2 MG/ML CPJ (NOT FOR IM USE) IV PRN ×3 (04:48→22:53)
[2020-03-24] MEDS: NITROGLYCERIN OINT 1GM/INCH UDPKT TD SCH ×3 (05:47→21:04)
[2020-03-24] MEDS: CLONIDINE 0.1MG TABLET PO PRN ×2 (05:47→16:06)
[2020-03-24 05:59] LABS: BASOPHILS % 1.4 % (0.0-2.0); EOSINOPHILS % 9.2 % (0.0-5.0); HEMATOCRIT. 28.1 % (42.0-52.0); HEMOGLOBIN. 9.4 g/dL (14.0-18.0); LYMPHOCYTES % 27.3 % (20.0-50.0); MEAN CORPUSCULAR HEMOGLOBIN 29.1 pg (28.0-32.0); MEAN CORPUSCULAR VOLUME 87.3 fL (80.0-94.0); MEAN PLATELET VOLUME 7.4 fl (7.4-10.4); MONOCYTES % 12.7 % (2.0-8.0); NEUTROPHILS % 49.4 % (40.0-76.0); PLATELET 308 x1000/uL (130-400); RED BLOOD CELL COUNT 3.22 mill/uL (4.7-6.1); RED CELL DISTRIBUTION WIDTH 17.4 % (11.6-14.6)
[2020-03-24 06:12] LABS: CHLORIDE 103 mEq/L (98-107)
[2020-03-24 06:27] LABS: LDL CHOLESTEROL 66 mg/dL (5-100)
[2020-03-24 06:28] LABS: HDL CHOLESTEROL 41 mg/dL (40-59)
[2020-03-24 08:00] VITALS: BP 160/96
[2020-03-24] MEDS: ASPIRIN 81MG EC TABLET PO SCH (08:50)
[2020-03-24] MEDS: CARVEDILOL 6.25 MG TABLET PO SCH ×2 (08:50→21:04)
[2020-03-24] MEDS: TICAGRELOR 90 MG TABLET PO SCH ×2 (08:50→16:06)
[2020-03-24 12:00] VITALS: BP 146/72
[2020-03-24 16:00] VITALS: BP 168/80
[2020-03-24 20:00] VITALS: BP 166/93
[2020-03-24] MEDS: ATORVASTATIN CALCIUM 20MG TABLET PO SCH (21:04)
[2020-03-25] VITALS: BP 140/77
[2020-03-25 04:00] VITALS: BP 130/70
[2020-03-25] MEDS: NITROGLYCERIN OINT 1GM/INCH UDPKT TD SCH (05:40)
[2020-03-25] MEDS: MORPHINE SULFATE 2 MG/ML CPJ (NOT FOR IM USE) IV PRN (06:42)
[2020-03-25 07:33] LABS: BASOPHILS % 0.8 % (0.0-2.0); EOSINOPHILS % 6.9 % (0.0-5.0); HEMATOCRIT. 30.1 % (42.0-52.0); HEMOGLOBIN. 9.9 g/dL (14.0-18.0); LYMPHOCYTES % 29.6 % (20.0-50.0); MEAN CORPUSCULAR HEMOGLOBIN 28.7 pg (28.0-32.0); MEAN CORPUSCULAR VOLUME 87.8 fL (80.0-94.0); MEAN PLATELET VOLUME 7.4 fl (7.4-10.4); MONOCYTES % 11.9 % (2.0-8.0); NEUTROPHILS % 50.8 % (40.0-76.0); PLATELET 300 x1000/uL (130-400); RED BLOOD CELL COUNT 3.43 mill/uL (4.7-6.1); RED CELL DISTRIBUTION WIDTH 17.3 % (11.6-14.6)
[2020-03-25] MEDS: TICAGRELOR 90 MG TABLET PO SCH (07:52)
[2020-03-25] MEDS: CARVEDILOL 6.25 MG TABLET PO SCH (07:52)
[2020-03-25] MEDS: ASPIRIN 81MG EC TABLET PO SCH (07:53)
[2020-03-25 08:00] VITALS: BP 164/90
[2020-03-25] MEDS ORDERED: REGADENOSON 0.4 MG/5 ML IV ONE (08:23)
[2020-03-25] MEDS: CLONIDINE 0.1MG TABLET PO PRN (10:13)
[2020-03-25 12:00] VITALS: BP 156/90
== END 2020-03-25 14:00 | disposition home or self-care (01) | DRG 205 ==
LOC: ER 17:50 → ENRESERV 03-23 03:22 → CANRESERV 03-23 03:22 → 5WST 03-23 03:29 → EDBEDREQTM 03-23 03:50 → EDBEDREQSVC 03-23 03:50 → EDBEDREQ 03-23 03:50 → ENRESERV 03-23 04:32
PROVIDERS: ADMIT Internal Medicine; ATTEND Internal Medicine
PROC: 5A1D70Z Performance of Urinary Filtration, Intermittent, Less than 6 Hours Per Day (ICD-10-PCS; principal; 2020-03-23)
PROC: 5A1D70Z Performance of Urinary Filtration, Intermittent, Less than 6 Hours Per Day (ICD-10-PCS; 2020-03-25)
DX: M94.0 Chondrocostal junction syndrome [Tietze] (principal); N18.6 End stage renal disease; E44.0 Moderate protein-calorie malnutrition; I13.2 Hypertensive heart and chronic kidney disease with heart failure and with stage 5 chronic kidney disease, or end stage renal disease; I50.22 Chronic systolic (congestive) heart failure; R07.89 Other chest pain; I25.10 Atherosclerotic heart disease of native coronary artery without angina pectoris; D63.8 Anemia in other chronic diseases classified elsewhere; E11.22 Type 2 diabetes mellitus with diabetic chronic kidney disease; E78.5 Hyperlipidemia, unspecified; F20.9 Schizophrenia, unspecified; I25.2 Old myocardial infarction; I25.5 Ischemic cardiomyopathy; I27.20 Pulmonary hypertension, unspecified; J44.9 Chronic obstructive pulmonary disease, unspecified; K57.30 Diverticulosis of large intestine without perforation or abscess without bleeding; D64.9 Anemia, unspecified; F14.10 Cocaine abuse, uncomplicated; B19.20 Unspecified viral hepatitis C without hepatic coma; Z53.29 Procedure and treatment not carried out because of patient's decision for other reasons; Z82.49 Family history of ischemic heart disease and other diseases of the circulatory system; Z87.891 Personal history of nicotine dependence; Z95.5 Presence of coronary angioplasty implant and graft; Z79.02 Long term (current) use of antithrombotics/antiplatelets; Z79.82 Long term (current) use of aspirin; Z82.3 Family history of stroke; Z79.899 Other long term (current) drug therapy; Z90.49 Acquired absence of other specified parts of digestive tract; Z99.2 Dependence on renal dialysis; Z88.8 Allergy status to other drugs, medicaments and biological substances; Z68.25 Body mass index [BMI] 25.0-25.9, adult
CPT/HCPCS: 36415; 71045; 74176; 78452; 80048; 80053; 80061; 83735; 84100; 84443; 84484; 85025; 93005; 93017; 93306; 93970; 94640; 99285; A9500; J0696; J2270; J2405; J2785; J8499

== ENCOUNTER 2020-07-27 15:40 | Inpatient (IN) | payer MEDICARE, OTHER ==
[~2020-07-27] VITALS: Ht 177.8 cm; Wt 82.0 kg
[~2020-07-27 15:40] MED LIST changes: +AMLO10TA4 MT; +CLON-457 PO; +HYDR-4001 PO
[2020-07-27] MEDS ORDERED: NITROGLYCERIN 0.4MG TABLET SL SL PRN (16:15)
[2020-07-27] MEDS ORDERED: NITROGLYCERIN OINT 1GM/INCH UDPKT TD ONE (16:15)
[2020-07-27 16:42] LABS: CHLORIDE 109 mEq/L (98-107)
[2020-07-27 16:45] LABS: BASOPHILS % 1.1 % (0.0-2.0); EOSINOPHILS % 0.1 % (0.0-5.0); HEMATOCRIT. 25.5 % (42.0-52.0); HEMOGLOBIN. 8.1 g/dL (14.0-18.0); LYMPHOCYTES % 16.8 % (20.0-50.0); MEAN CORPUSCULAR HEMOGLOBIN 30.2 pg (28.0-32.0); MEAN CORPUSCULAR VOLUME 95.4 fL (80.0-94.0); MEAN PLATELET VOLUME 7.2 fl (7.4-10.4); PLATELET 628 x1000/uL (130-400); RED BLOOD CELL COUNT 2.68 mill/uL (4.7-6.1); RED CELL DISTRIBUTION WIDTH 16.6 % (11.6-14.6)
[2020-07-27] MEDS ORDERED: HYDRALAZINE 20MG/ML VIAL IV ONE ×2 (17:30→19:45)
[2020-07-27] MEDS ORDERED: SODIUM BICARBONATE 8.4% 1 MEQ/ML 50ML SYR IV ONE (17:30)
[2020-07-27] MEDS ORDERED: CALCIUM GLUCONATE 1,000 MG in DEXT 5% WATER 100 ML IV ONE (17:30)
[2020-07-27] MEDS ORDERED: DEXTROSE 50% WATER 50ML SYRINGE IV ONE (17:30)
[2020-07-27] MEDS ORDERED: INSULIN REGULAR (HUMULIN R) 300UNITS/3ML VIAL IV ONE (17:30)
[2020-07-27] MEDS ORDERED: CALCIUM GLUCONATE 1GM PREMIX 50 ML IV NR (17:30)
[2020-07-27] MEDS ORDERED: SODIUM POLYSTYRENE SULFONATE 15 G/60 ML BOT PO ONE (17:30)
[2020-07-27] MEDS ORDERED: ASPIRIN 325MG EC TABLET PO ONE (19:45)
[2020-07-27] MEDS ORDERED: CLONIDINE 0.2MG TABLET PO PRN (21:30)
[2020-07-27] MEDS ORDERED: CLONIDINE 0.2MG TABLET PO NR (21:30)
[2020-07-28] MEDS ORDERED: SODIUM CHLORIDE 0.9% IV NR (09:00)
[2020-07-28] MEDS: CARVEDILOL 6.25 MG TABLET PO SCH ×2 (09:00→17:00)
[2020-07-28] MEDS ORDERED: DESMOPRESSIN ACETATE IV NR (09:00)
[2020-07-28] MEDS: AMLODIPINE 10MG TABLET PO SCH (09:00)
[2020-07-28] MEDS: ISOSORBIDE MONONITRATE 60MG TABLET SR 24HR PO SCH (09:00)
[2020-07-28] MEDS: HYDRALAZINE HCL 50MG TABLET PO SCH ×3 (09:19→17:00)
[2020-07-28] MEDS ORDERED: ACETAMINOPHEN 650MG/20.3ML UDC PO PRN (10:00)
[2020-07-28] MEDS ORDERED: ACETAMINOPHEN 650MG SUPP PR PRN (10:00)
[2020-07-28] MEDS ORDERED: MORPHINE SULFATE 2 MG/ML CPJ (NOT FOR IM USE) IV PRN (10:00)
[2020-07-28] MEDS ORDERED: PIPERACILLIN/TAZOBACTAM 2.25 G in DEXTROSE 5% WATER 50 ML IV SCH (12:00)
[2020-07-28 14:00] LABS: BG BASE EXCESS -3.4 mmol/L (-2.0-2.0); BG CARBOXYHEMOGLOBIN 0.3 % (0.5-1.5); BG DEOXYHEMOGLOBIN 0.4 % (0.0-5.0); BG FRACTION INSPIRED OXYGEN 100; BG METHEMOGLOBIN 0.1 % (0.0-1.5); BG OXYGEN SATURATION 99.6 % (92.0-98.5); BG OXYHEMOGLOBIN 99.2 % (94.0-97.0); BG PCO2 41.4 mmHg (35.0-45.0); BG PH 7.344 (7.350-7.450); BG PO2 307.3 mmHg (75.0-100.0); BG TOTAL HEMOGLOBIN 8.1 g/dL (12.0-18.0); BG VENT MODE MASK - NRB
[2020-07-28] MEDS: PIPERACILLIN/TAZOBACTAM 2.25 G in DEXTROSE 5% WATER 50 ML IV SCH (14:00)
[2020-07-28] MEDS ORDERED: ONDANSETRON HCL 4MG/2ML INJ IV PRN (14:30)
[2020-07-28] MEDS ORDERED: HYDRALAZINE 20MG/ML VIAL IV PRN (14:30)
[2020-07-28] MEDS ORDERED: DIPHENHYDRAMINE 50MG/ML VIAL IV PRN (14:30)
[2020-07-28] MEDS: METHYLPREDNISOLONE SOD SUCC 40 MG/ML VIAL IV SCH (15:00)
[2020-07-28] MEDS ORDERED: ALBUTEROL 6.7GM HFA INHALER ORI SCH (18:00)
[2020-07-28 20:25] LABS: INR 1.2; PROTHROMBIN TIME 12.4 sec (9.6-11.0)
[2020-07-28 20:26] LABS: CHLORIDE 101 mEq/L (98-107)
[2020-07-28 20:33] LABS: CREATINE KINASE 52 IU/L (39-308)
[2020-07-28 20:35] LABS: CREATINE KINASE MB FRACTION 2.5 ng/mL (0.5-3.6)
[2020-07-28 20:52] LABS: HEMATOCRIT. 23.2 % (42.0-52.0); HEMOGLOBIN. 7.5 g/dL (14.0-18.0); MEAN CORPUSCULAR HEMOGLOBIN 30.2 pg (28.0-32.0); MEAN CORPUSCULAR VOLUME 93.7 fL (80.0-94.0); MEAN PLATELET VOLUME 7.6 fl (7.4-10.4); PLATELET 500 x1000/uL (130-400); RED BLOOD CELL COUNT 2.47 mill/uL (4.7-6.1); RED CELL DISTRIBUTION WIDTH 16.3 % (11.6-14.6)
[2020-07-28] MEDS: ATORVASTATIN CALCIUM 10MG TABLET PO SCH (21:12)
[2020-07-28] MEDS: FAMOTIDINE 20MG TABLET PO SCH (21:12)
[2020-07-28 21:53] LABS: PLATELET ESTIMATE INCREASED
[2020-07-29] MEDS: PIPERACILLIN/TAZOBACTAM 2.25 G in DEXTROSE 5% WATER 50 ML IV SCH ×3 (01:19→18:52)
[2020-07-29] MEDS: METHYLPREDNISOLONE SOD SUCC 40 MG/ML VIAL IV SCH ×2 (03:47→16:08)
[2020-07-29 05:29] LABS: BASOPHILS % 0.5 % (0.0-2.0); HEMATOCRIT. 25.6 % (42.0-52.0); HEMOGLOBIN. 8.6 g/dL (14.0-18.0); LYMPHOCYTES % 8.6 % (20.0-50.0); MEAN CORPUSCULAR HEMOGLOBIN 31.1 pg (28.0-32.0); MEAN CORPUSCULAR VOLUME 93.1 fL (80.0-94.0); MEAN PLATELET VOLUME 7.7 fl (7.4-10.4); MONOCYTES % 2.2 % (2.0-8.0); NEUTROPHILS % 88.7 % (40.0-76.0); PLATELET 555 x1000/uL (130-400); RED BLOOD CELL COUNT 2.75 mill/uL (4.7-6.1); RED CELL DISTRIBUTION WIDTH 16.1 % (11.6-14.6)
[2020-07-29 05:31] LABS: CHLORIDE 99 mEq/L (98-107)
[2020-07-29] MEDS: HYDRALAZINE HCL 50MG TABLET PO SCH ×3 (09:55→18:52)
[2020-07-29] MEDS: CARVEDILOL 6.25 MG TABLET PO SCH ×2 (09:55→18:52)
[2020-07-29] MEDS: ISOSORBIDE MONONITRATE 60MG TABLET SR 24HR PO SCH (09:55)
[2020-07-29] MEDS: AMLODIPINE 10MG TABLET PO SCH (09:55)
[2020-07-29] MEDS ORDERED: SODIUM CHLORIDE 0.9% 100 ML IV ONE (10:00)
[2020-07-29] MEDS: ATORVASTATIN CALCIUM 10MG TABLET PO SCH (21:00)
[2020-07-29] MEDS: FAMOTIDINE 20MG TABLET PO SCH (21:00)
[2020-07-30 01:46] VITALS: BP 166/82
== END 2020-07-30 01:46 | disposition left against medical advice (07) | DRG 280 ==
LOC: ER 15:40 → MICUSO 18:46 → EDBEDREQ 18:50 → 3WST 07-28 09:15 → MICUSO 07-28 10:15
PROVIDERS: ADMIT Internal Medicine; ATTEND Internal Medicine
PROC: 5A1D70Z Performance of Urinary Filtration, Intermittent, Less than 6 Hours Per Day (ICD-10-PCS; principal; 2020-07-28)
PROC: 5A1D70Z Performance of Urinary Filtration, Intermittent, Less than 6 Hours Per Day (ICD-10-PCS; 2020-07-30)
DX: T82.838A Hemorrhage due to vascular prosthetic devices, implants and grafts, initial encounter (principal); I50.33 Acute on chronic diastolic (congestive) heart failure; I21.4 Non-ST elevation (NSTEMI) myocardial infarction; N18.6 End stage renal disease; I13.2 Hypertensive heart and chronic kidney disease with heart failure and with stage 5 chronic kidney disease, or end stage renal disease; J44.1 Chronic obstructive pulmonary disease with (acute) exacerbation; E87.5 Hyperkalemia; I16.0 Hypertensive urgency; R74.01 Elevation of levels of liver transaminase levels; Z53.29 Procedure and treatment not carried out because of patient's decision for other reasons; Z20.828 Contact with and (suspected) exposure to other viral communicable diseases; D64.9 Anemia, unspecified; E87.70 Fluid overload, unspecified; D72.829 Elevated white blood cell count, unspecified; F31.9 Bipolar disorder, unspecified; Z99.2 Dependence on renal dialysis; Z88.6 Allergy status to analgesic agent; Z88.8 Allergy status to other drugs, medicaments and biological substances; Z91.19 Patient's noncompliance with other medical treatment and regimen; Z79.02 Long term (current) use of antithrombotics/antiplatelets; Z79.899 Other long term (current) drug therapy; Y83.8 Other surgical procedures as the cause of abnormal reaction of the patient, or of later complication, without mention of misadventure at the time of the procedure; Y92.89 Other specified places as the place of occurrence of the external cause
CPT/HCPCS: 36415; 36600; 71045; 76700; 80048; 80053; 80076; 82375; 82550; 82553; 82805; 83880; 84484; 85025; 87426; 93005; 93970; 99291; J0360; J0610; J1815; J2270; J2543; J2597; J2920; J3490; J7060

== ENCOUNTER 2020-08-12 00:02 | Emergency (ER) | payer MEDICARE, OTHER ==
[~2020-08-12] VITALS: Ht 175.3 cm; Wt 73.0 kg
[~2020-08-12 00:02] MED LIST changes: -MULT-1116 PO; -NIFE-32 PO
[2020-08-12] MEDS ORDERED: ONDANSETRON HCL 4MG/2ML INJ IV STA (00:21)
[2020-08-12] MEDS ORDERED: DEXAMETHASONE 4MG/ML 1ML VIAL IV ONE (00:30)
[2020-08-12] MEDS ORDERED: HYDRALAZINE 20MG/ML VIAL IV ONE (00:30)
[2020-08-12 01:08] LABS: BG BASE EXCESS 0.1 mmol/L (-2.0-2.0); BG CARBOXYHEMOGLOBIN 0.8 % (0.5-1.5); BG DEOXYHEMOGLOBIN 0.3 % (0.0-5.0); BG FRACTION INSPIRED OXYGEN 60; BG HCO3 ACT 25.2 mmol/L (22.0-26.0); BG METHEMOGLOBIN 0.4 % (0.0-1.5); BG OXYGEN SATURATION 99.7 % (92.0-98.5); BG OXYHEMOGLOBIN 98.5 % (94.0-97.0); BG PH 7.386 (7.350-7.450); BG PO2 261.4 mmHg (75.0-100.0); BG SAMPLE SITE RIGHT RADIAL; BG TOTAL HEMOGLOBIN 7.7 g/dL (12.0-18.0); BG VENT MODE MASK - BIPAP
[2020-08-12 01:11] LABS: BASOPHILS % 0.7 % (0.0-2.0); EOSINOPHILS % 2.5 % (0.0-5.0); HEMATOCRIT. 22.7 % (42.0-52.0); HEMOGLOBIN. 7.4 g/dL (14.0-18.0); LYMPHOCYTES % 9.2 % (20.0-50.0); MEAN CORPUSCULAR HEMOGLOBIN 30.9 pg (28.0-32.0); MEAN CORPUSCULAR VOLUME 95.2 fL (80.0-94.0); MEAN PLATELET VOLUME 7.1 fl (7.4-10.4); MONOCYTES % 4.4 % (2.0-8.0); NEUTROPHILS % 83.2 % (40.0-76.0); PLATELET 309 x1000/uL (130-400); RED BLOOD CELL COUNT 2.39 mill/uL (4.7-6.1); RED CELL DISTRIBUTION WIDTH 17.4 % (11.6-14.6)
[2020-08-12 01:14] LABS: CHLORIDE 103 mEq/L (98-107)
[2020-08-12 02:17] LABS: D-DIMER 3.3 mg/L FEU (<0.50); PROTHROMBIN TIME 10.5 sec (9.6-11.0)
[2020-08-12] MEDS ORDERED: HYDROCODONE/ACETAMINOPHEN 5/325MG TABLET PO PRN (14:45)
[2020-08-12] MEDS ORDERED: ACETAMINOPHEN 325MG TABLET PO PRN (14:45)
[2020-08-12] MEDS ORDERED: ONDANSETRON HCL 4MG/2ML INJ IV PRN (14:45)
[2020-08-12] MEDS ORDERED: ENOXAPARIN 40MG/0.4ML SYR SUBCUT SCH (14:45)
[2020-08-12] MEDS ORDERED: CLONIDINE 0.1MG TABLET PO PRN (14:45)
[2020-08-12] MEDS ORDERED: FUROSEMIDE 40MG TABLET PO SCH (14:56)
[2020-08-12] MEDS ORDERED: AMLODIPINE 10MG TABLET PO SCH (14:56)
[2020-08-12 15:00] VITALS: BP 153/72
[2020-08-12] MEDS ORDERED: HYDRALAZINE HCL 50MG TABLET PO SCH (15:00)
[2020-08-12] MEDS ORDERED: ISOSORBIDE MONONITRATE 60MG TABLET SR 24HR PO SCH (15:15)
[2020-08-12] MEDS ORDERED: CARVEDILOL 6.25 MG TABLET PO SCH (17:00)
[2020-08-12] MEDS ORDERED: TICAGRELOR 90 MG TABLET PO SCH (17:00)
[2020-08-12] MEDS ORDERED: ATORVASTATIN CALCIUM 10MG TABLET PO SCH (21:00)
[2020-08-13] MEDS ORDERED: ASPIRIN 81MG EC TABLET PO SCH (09:00)
== END 2020-08-12 15:37 | disposition left against medical advice (07) ==
LOC: ER 00:25 → CANBEDREQ 23:23
DX: I13.11 Hypertensive heart and chronic kidney disease without heart failure, with stage 5 chronic kidney disease, or end stage renal disease (principal); J96.01 Acute respiratory failure with hypoxia; D72.829 Elevated white blood cell count, unspecified; J44.9 Chronic obstructive pulmonary disease, unspecified; E11.22 Type 2 diabetes mellitus with diabetic chronic kidney disease; N18.6 End stage renal disease; Z03.818 Encounter for observation for suspected exposure to other biological agents ruled out; Z99.2 Dependence on renal dialysis; Z88.8 Allergy status to other drugs, medicaments and biological substances; Z88.6 Allergy status to analgesic agent
CPT/HCPCS: 36415; 36600; 71045; 80053; 82375; 82728; 82805; 83605; 83615; 83880; 84484; 85025; 85379; 85610; 87040; 93005; 96374; 96375; 99291; C9803; J0360; J1100; J2405; U0003; J8499

== ENCOUNTER 2020-08-14 15:19 | Inpatient (IN) | payer MEDICARE, OTHER ==
[~2020-08-14] VITALS: Ht 175.3 cm; Wt 72.6 kg
[2020-08-14] MEDS ORDERED: DIPHENHYDRAMINE 50MG/ML VIAL IV ONE (16:00)
[2020-08-14 16:21] LABS: BASOPHILS % 0.8 % (0.0-2.0); EOSINOPHILS % 5.6 % (0.0-5.0); LYMPHOCYTES % 12.7 % (20.0-50.0); MEAN CORPUSCULAR HEMOGLOBIN 31.2 pg (28.0-32.0); MEAN CORPUSCULAR VOLUME 95.8 fL (80.0-94.0); MEAN PLATELET VOLUME 6.7 fl (7.4-10.4); NEUTROPHILS % 73.9 % (40.0-76.0); PLATELET 311 x1000/uL (130-400); RED BLOOD CELL COUNT 2.06 mill/uL (4.7-6.1); RED CELL DISTRIBUTION WIDTH 17.8 % (11.6-14.6)
[2020-08-14 16:23] LABS: CHLORIDE 104 mEq/L (98-107)
[2020-08-14 16:26] LABS: HEMATOCRIT. 19.7 % (42.0-52.0); HEMOGLOBIN. 6.4 g/dL (14.0-18.0)
[2020-08-14 16:37] LABS: PROTHROMBIN TIME 10.2 sec (9.6-11.0)
[2020-08-14] MEDS ORDERED: ACETAMINOPHEN 325MG TABLET PO PRN (22:00)
[2020-08-14] MEDS: DIPHENHYDRAMINE 50MG/ML VIAL IV PRN (22:14)
[2020-08-14] MEDS: CLONIDINE 0.2MG TABLET PO PRN (22:14)
[2020-08-14 23:40] VITALS: BP 183/123
[2020-08-14 23:52] VITALS: BP 183/123
[2020-08-15] VITALS (37 sets, daily range): BP systolic 136–190; BP diastolic 69–114
[2020-08-15] MEDS: CLONIDINE 0.2MG TABLET PO PRN ×2 (02:32→05:47)
[2020-08-15 03:05] LABS: HEMATOCRIT. 22.6 % (42.0-52.0); HEMOGLOBIN. 7.3 g/dL (14.0-18.0); MEAN CORPUSCULAR HEMOGLOBIN 30.7 pg (28.0-32.0); MEAN CORPUSCULAR VOLUME 95.6 fL (80.0-94.0); PLATELET 277 x1000/uL (130-400); RED BLOOD CELL COUNT 2.37 mill/uL (4.7-6.1); RED CELL DISTRIBUTION WIDTH 17.8 % (11.6-14.6)
[2020-08-15] MEDS ORDERED: HYDRALAZINE HCL 50MG TABLET PO SCH (08:00)
[2020-08-15 08:11] LABS: PLATELET ESTIMATE NORMAL
[2020-08-15] MEDS: FOLIC ACID/VITAMIN B COMP W-C TABLET PO SCH (08:27)
[2020-08-15] MEDS: AMLODIPINE 10MG TABLET PO SCH (08:27)
[2020-08-15] MEDS: ISOSORBIDE MONONITRATE 60MG TABLET SR 24HR PO SCH (08:28)
[2020-08-15] MEDS ORDERED: CARVEDILOL 6.25 MG TABLET PO SCH (09:00)
[2020-08-15] MEDS ORDERED: CARVEDILOL 6.25 MG TABLET PO NR (11:15)
[2020-08-15] MEDS ORDERED: LORAZEPAM 2MG/ML CPJ IV NR (11:30)
[2020-08-15] MEDS: CALCIUM ACETATE 667MG CAPSULE PO SCH ×2 (12:32→17:38)
[2020-08-15 12:59] LABS: BASOPHILS % 1.1 % (0.0-2.0); EOSINOPHILS % 7.3 % (0.0-5.0); MEAN CORPUSCULAR HEMOGLOBIN 31.4 pg (28.0-32.0); MEAN CORPUSCULAR VOLUME 94.6 fL (80.0-94.0); MEAN PLATELET VOLUME 7.2 fl (7.4-10.4); MONOCYTES % 4.8 % (2.0-8.0); NEUTROPHILS % 77.8 % (40.0-76.0); PLATELET 263 x1000/uL (130-400); RED BLOOD CELL COUNT 2.22 mill/uL (4.7-6.1); RED CELL DISTRIBUTION WIDTH 17.3 % (11.6-14.6)
[2020-08-15] MEDS: HYDRALAZINE HCL 100MG TABLET PO SCH ×2 (14:49→21:29)
[2020-08-15] MEDS ORDERED: BISACODYL 10MG SUPP PR PRN (17:15)
[2020-08-15] MEDS ORDERED: DIPHENHYDRAMINE 50MG/ML VIAL IV PRN (17:15)
[2020-08-15] MEDS ORDERED: IPRATROPIUM/ALBUTEROL 0.5-3(2.5)MG/3ML NEB HHN PRN (17:15)
[2020-08-15] MEDS: PANTOPRAZOLE SODIUM 40 MG/VIAL IV SCH (17:38)
[2020-08-15] MEDS: HYDRALAZINE 20MG/ML VIAL IV PRN (18:00)
[2020-08-15 18:22] LABS: BG BASE EXCESS 0.7 mmol/L (-2.0-2.0); BG CARBOXYHEMOGLOBIN 0.6 % (0.5-1.5); BG DEOXYHEMOGLOBIN 5.9 % (0.0-5.0); BG FRACTION INSPIRED OXYGEN 28; BG HCO3 ACT 25.1 mmol/L (22.0-26.0); BG METHEMOGLOBIN 0.2 % (0.0-1.5); BG OXYGEN SATURATION 94.1 % (92.0-98.5); BG OXYHEMOGLOBIN 93.3 % (94.0-97.0); BG PCO2 39.1 mmHg (35.0-45.0); BG PH 7.426 (7.350-7.450); BG PO2 73.5 mmHg (75.0-100.0); BG SAMPLE SITE LEFT RADIAL; BG TOTAL HEMOGLOBIN 8.1 g/dL (12.0-18.0); BG VENT MODE NASAL CANNULA
[2020-08-15] MEDS: ATORVASTATIN CALCIUM 10MG TABLET PO SCH (21:28)
[2020-08-15] MEDS: CARVEDILOL 12.5MG TABLET PO SCH (21:29)
[2020-08-16] VITALS (12 sets, daily range): BP systolic 124–178; BP diastolic 66–101
[2020-08-16 00:16] LABS: HEMATOCRIT 22.8 % (42.0-52.0); HEMOGLOBIN 7.6 g/dL (14.0-18.0)
[2020-08-16] MEDS: HYDRALAZINE HCL 100MG TABLET PO SCH ×3 (05:10→22:18)
[2020-08-16] MEDS: FOLIC ACID/VITAMIN B COMP W-C TABLET PO SCH (08:28)
[2020-08-16] MEDS: CALCIUM ACETATE 667MG CAPSULE PO SCH ×3 (08:29→17:11)
[2020-08-16] MEDS: PANTOPRAZOLE SODIUM 40 MG/VIAL IV SCH ×2 (08:29→22:18)
[2020-08-16] MEDS: ISOSORBIDE MONONITRATE 60MG TABLET SR 24HR PO SCH (08:31)
[2020-08-16] MEDS: AMLODIPINE 10MG TABLET PO SCH (08:31)
[2020-08-16] MEDS: CARVEDILOL 12.5MG TABLET PO SCH ×2 (08:31→21:00)
[2020-08-16] MEDS: HYDROCODONE/ACETAMINOPHEN 5/325MG TABLET PO PRN (08:33)
[2020-08-16] MEDS: GABAPENTIN 100MG CAPSULE PO SCH ×2 (12:19→22:22)
[2020-08-16] MEDS: DIPHENHYDRAMINE 50MG/ML VIAL IV PRN ×2 (12:19→18:27)
[2020-08-16 13:43] LABS: BASOPHILS % 0.7 % (0.0-2.0); EOSINOPHILS % 10.5 % (0.0-5.0); HEMATOCRIT. 22.3 % (42.0-52.0); HEMOGLOBIN. 7.1 g/dL (14.0-18.0); LYMPHOCYTES % 14.7 % (20.0-50.0); MEAN CORPUSCULAR HEMOGLOBIN 30.7 pg (28.0-32.0); MEAN CORPUSCULAR VOLUME 95.9 fL (80.0-94.0); MEAN PLATELET VOLUME 7.4 fl (7.4-10.4); MONOCYTES % 7.3 % (2.0-8.0); NEUTROPHILS % 66.8 % (40.0-76.0); PLATELET 260 x1000/uL (130-400); RED BLOOD CELL COUNT 2.32 mill/uL (4.7-6.1); RED CELL DISTRIBUTION WIDTH 17.7 % (11.6-14.6)
[2020-08-16 14:04] LABS: CHLORIDE 106 mEq/L (98-107)
[2020-08-16 14:12] LABS: LDL CHOLESTEROL 74 mg/dL (5-100)
[2020-08-16 14:13] LABS: HDL CHOLESTEROL 52 mg/dL (40-59); T4 FREE 1.22 ng/dL (0.76-1.46)
[2020-08-16] MEDS ORDERED: SORBITOL 70% SOLN 30ML PO NR (16:00)
[2020-08-16] MEDS: CLONIDINE 0.2MG TABLET PO PRN (16:14)
[2020-08-16] MEDS: HYDRALAZINE 20MG/ML VIAL IV PRN (18:39)
[2020-08-16] MEDS: ATORVASTATIN CALCIUM 10MG TABLET PO SCH (22:18)
[2020-08-17] VITALS (15 sets, daily range): BP systolic 131–197; BP diastolic 74–106
[2020-08-17] MEDS: HYDROCODONE/ACETAMINOPHEN 5/325MG TABLET PO PRN (05:10)
[2020-08-17] MEDS: CLONIDINE 0.2MG TABLET PO PRN ×2 (05:10→22:22)
[2020-08-17] MEDS: HYDRALAZINE HCL 100MG TABLET PO SCH ×3 (06:32→21:19)
[2020-08-17] MEDS: SORBITOL 70% SOLN 30ML PO NR ×2 (06:32→09:40)
[2020-08-17 07:00] LABS: PROTHROMBIN TIME 10.7 sec (9.6-11.0)
[2020-08-17 07:16] LABS: BASOPHILS % 0.8 % (0.0-2.0); EOSINOPHILS % 12.7 % (0.0-5.0); HEMATOCRIT. 22.1 % (42.0-52.0); HEMOGLOBIN. 7.3 g/dL (14.0-18.0); MEAN CORPUSCULAR HEMOGLOBIN 31.5 pg (28.0-32.0); MEAN CORPUSCULAR VOLUME 95.3 fL (80.0-94.0); MEAN PLATELET VOLUME 7.4 fl (7.4-10.4); NEUTROPHILS % 61.5 % (40.0-76.0); PLATELET 258 x1000/uL (130-400); RED BLOOD CELL COUNT 2.32 mill/uL (4.7-6.1); RED CELL DISTRIBUTION WIDTH 18.3 % (11.6-14.6)
[2020-08-17] MEDS: CALCIUM ACETATE 667MG CAPSULE PO SCH ×3 (07:20→18:09)
[2020-08-17] MEDS: AMLODIPINE 10MG TABLET PO SCH (09:00)
[2020-08-17] MEDS: CARVEDILOL 12.5MG TABLET PO SCH ×2 (09:00→21:18)
[2020-08-17] MEDS: FOLIC ACID/VITAMIN B COMP W-C TABLET PO SCH (09:00)
[2020-08-17] MEDS: ISOSORBIDE MONONITRATE 60MG TABLET SR 24HR PO SCH (09:00)
[2020-08-17] MEDS: GABAPENTIN 100MG CAPSULE PO SCH ×2 (09:40→18:09)
[2020-08-17] MEDS: PANTOPRAZOLE SODIUM 40 MG/VIAL IV SCH ×2 (09:40→21:18)
[2020-08-17] MEDS: DEXT 5%/0.45% NACL 1000ML 1,000 ML IV SCH ×2 (09:41)
[2020-08-17] MEDS ORDERED: MIDAZOLAM HCL 2 MG/2 ML VIAL ONE (15:49)
[2020-08-17] MEDS ORDERED: HYDROMORPHONE HCL/PF 2MG/ML (OR) ONE (15:49)
[2020-08-17] MEDS ORDERED: PROPOFOL 200MG/20ML VIAL IV ONE (15:50)
[2020-08-17] MEDS ORDERED: LABETALOL 5MG/ML SYR 20 MG/4 ML SYRINGE IV PRN (16:30)
[2020-08-17] MEDS ORDERED: HYDROMORPHONE HCL/PF 2MG/ML CPJ IV PRN (16:30)
[2020-08-17] MEDS ORDERED: ONDANSETRON HCL 4MG/2ML INJ IV PRN (16:30)
[2020-08-17] MEDS ORDERED: MEPERIDINE HCL/PF 25MG/ML CPJ IV PRN (16:30)
[2020-08-17] MEDS: HYDRALAZINE 20MG/ML VIAL IV PRN (18:13)
[2020-08-17 19:17] LABS: HEMATOCRIT 32.4 % (42.0-52.0); HEMOGLOBIN 10.7 g/dL (14.0-18.0)
[2020-08-17] MEDS: ATORVASTATIN CALCIUM 10MG TABLET PO SCH (21:19)
[2020-08-18] VITALS: BP 176/77
[2020-08-18] MEDS: HYDROCODONE/ACETAMINOPHEN 5/325MG TABLET PO PRN (05:31)
[2020-08-18 06:00] VITALS: BP 143/75
[2020-08-18] MEDS: HYDRALAZINE HCL 100MG TABLET PO SCH ×2 (06:25→14:18)
[2020-08-18 07:19] LABS: BASOPHILS % 0.8 % (0.0-2.0); HEMATOCRIT. 28.4 % (42.0-52.0); HEMOGLOBIN. 9.5 g/dL (14.0-18.0); MEAN CORPUSCULAR HEMOGLOBIN 30.2 pg (28.0-32.0); MEAN CORPUSCULAR VOLUME 90.7 fL (80.0-94.0); MEAN PLATELET VOLUME 7.4 fl (7.4-10.4); MONOCYTES % 9.3 % (2.0-8.0); NEUTROPHILS % 65.9 % (40.0-76.0); PLATELET 289 x1000/uL (130-400); RED BLOOD CELL COUNT 3.13 mill/uL (4.7-6.1); RED CELL DISTRIBUTION WIDTH 21.5 % (11.6-14.6)
[2020-08-18] MEDS: CALCIUM ACETATE 667MG CAPSULE PO SCH ×3 (07:20→12:20)
[2020-08-18 08:00] VITALS: BP 139/65
[2020-08-18] MEDS: CARVEDILOL 12.5MG TABLET PO SCH (09:00)
[2020-08-18 10:00] VITALS: BP 161/81
[2020-08-18] MEDS: ISOSORBIDE MONONITRATE 60MG TABLET SR 24HR PO SCH (10:08)
[2020-08-18] MEDS: PANTOPRAZOLE SODIUM 40 MG/VIAL IV SCH (10:08)
[2020-08-18] MEDS: AMLODIPINE 10MG TABLET PO SCH (10:09)
[2020-08-18] MEDS: GABAPENTIN 100MG CAPSULE PO SCH (10:09)
[2020-08-18] MEDS: FOLIC ACID/VITAMIN B COMP W-C TABLET PO SCH (10:09)
[2020-08-18] MEDS: CLONIDINE 0.2MG TABLET PO PRN (10:09)
[2020-08-18] MEDS ORDERED: GABA-532 MT ×2 (10:51→10:52)
[2020-08-18] MEDS ORDERED: HYDR-4001 MT ×2 (10:51→10:52)
[2020-08-18] MEDS ORDERED: NEOMY SULF/BACITRAC ZN/POLY OINT 28GM TOP SCH (11:00)
[2020-08-18 12:00] VITALS: BP 159/85
[2020-08-18 12:46] VITALS: BP 159/85
== END 2020-08-18 15:45 | disposition home or self-care (01) | DRG 91 ==
LOC: ER 15:19 → 3WST 17:54 → ENRESERV 21:35
PROVIDERS: ADMIT Internal Medicine; ATTEND Internal Medicine
PROC: 5A1D70Z Performance of Urinary Filtration, Intermittent, Less than 6 Hours Per Day (ICD-10-PCS; 2020-08-14)
PROC: 5A1D70Z Performance of Urinary Filtration, Intermittent, Less than 6 Hours Per Day (ICD-10-PCS; 2020-08-16)
PROC: 4A00X4Z Measurement of Central Nervous Electrical Activity, External Approach (ICD-10-PCS; 2020-08-16)
PROC: 30233N1 Transfusion of Nonautologous Red Blood Cells into Peripheral Vein, Percutaneous Approach (ICD-10-PCS; principal; 2020-08-17)
PROC: 0DJD8ZZ Inspection of Lower Intestinal Tract, Via Natural or Artificial Opening Endoscopic (ICD-10-PCS; 2020-08-17)
PROC: 0DB68ZX Excision of Stomach, Via Natural or Artificial Opening Endoscopic, Diagnostic (ICD-10-PCS; 2020-08-17)
PROC: 05HY33Z Insertion of Infusion Device into Upper Vein, Percutaneous Approach (ICD-10-PCS; 2020-08-17)
PROC: B54NZZA Ultrasonography of Left Upper Extremity Veins, Guidance (ICD-10-PCS; 2020-08-17)
PROC: 5A1D70Z Performance of Urinary Filtration, Intermittent, Less than 6 Hours Per Day (ICD-10-PCS; 2020-08-18)
DX: G92 Toxic encephalopathy (principal); N18.6 End stage renal disease; J44.1 Chronic obstructive pulmonary disease with (acute) exacerbation; I12.0 Hypertensive chronic kidney disease with stage 5 chronic kidney disease or end stage renal disease; D64.9 Anemia, unspecified; I16.0 Hypertensive urgency; G89.29 Other chronic pain; G25.3 Myoclonus; B19.20 Unspecified viral hepatitis C without hepatic coma; E88.09 Other disorders of plasma-protein metabolism, not elsewhere classified; K64.8 Other hemorrhoids; K64.4 Residual hemorrhoidal skin tags; K57.30 Diverticulosis of large intestine without perforation or abscess without bleeding; R27.8 Other lack of coordination; I51.7 Cardiomegaly; T42.4X5A Adverse effect of benzodiazepines, initial encounter; M54.30 Sciatica, unspecified side; Z20.822 Contact with and (suspected) exposure to COVID-19; Z99.2 Dependence on renal dialysis; Z91.19 Patient's noncompliance with other medical treatment and regimen; Z87.891 Personal history of nicotine dependence; Z90.49 Acquired absence of other specified parts of digestive tract; Z88.8 Allergy status to other drugs, medicaments and biological substances; Z79.82 Long term (current) use of aspirin; Y92.89 Other specified places as the place of occurrence of the external cause; Z79.899 Other long term (current) drug therapy
CPT/HCPCS: 36415; 36600; 71045; 74176; 76937; 80048; 80053; 80061; 80076; 82140; 82270; 82375; 82805; 83735; 84439; 84443; 85014; 85018; 85025; 85049; 86850; 86900; 86920; 87426; 93005; 95816; 97116; 97162; 99285; C1725; C9113; J0360; J1170; J1200; J2060; J2250; J2704; P9016

== ENCOUNTER 2020-09-20 17:31 | Emergency (ER) | payer MEDICARE, MEDICAID ==
[~2020-09-20] VITALS: Ht 175.3 cm; Wt 81.4 kg
[~2020-09-20 17:31] MED LIST changes: -FOLI-43 PO; -FURO40TA5 PO; +GABA-532 MT; +LEVO250T58 PO; +OMEP20TA2 MT
[2020-09-20 19:48] LABS: BASOPHILS % 0.3 % (0.0-2.0); EOSINOPHILS % 0.1 % (0.0-5.0); HEMATOCRIT. 27.1 % (42.0-52.0); HEMOGLOBIN. 8.9 g/dL (14.0-18.0); MEAN CORPUSCULAR HEMOGLOBIN 30.1 pg (28.0-32.0); MEAN CORPUSCULAR VOLUME 91.8 fL (80.0-94.0); MONOCYTES % 8.7 % (2.0-8.0); NEUTROPHILS % 82.9 % (40.0-76.0); PLATELET 382 x1000/uL (130-400); RED BLOOD CELL COUNT 2.96 mill/uL (4.7-6.1); RED CELL DISTRIBUTION WIDTH 17.4 % (11.6-14.6)
[2020-09-20 19:54] LABS: CHLORIDE 105 mEq/L (98-107)
[2020-09-20 20:08] LABS: INR 1.1; PROTHROMBIN TIME 11.3 sec (9.6-11.0)
[2020-09-20] MEDS ORDERED: SODIUM POLYSTYRENE SULFONATE 15 G/60 ML BOT PO ONE (20:45)
[2020-09-20 22:01] VITALS: BP 159/71
== END 2020-09-20 22:06 | disposition home or self-care (01) ==
LOC: ER 17:31
DX: R79.89 Other specified abnormal findings of blood chemistry (principal); J44.1 Chronic obstructive pulmonary disease with (acute) exacerbation; I10 Essential (primary) hypertension; Z91.15 Patient's noncompliance with renal dialysis; Z79.899 Other long term (current) drug therapy; Z88.6 Allergy status to analgesic agent; Z88.2 Allergy status to sulfonamides; Z88.8 Allergy status to other drugs, medicaments and biological substances
CPT/HCPCS: 36415; 71045; 80053; 83880; 84484; 85025; 93005; 99283

== ENCOUNTER 2020-11-21 05:36 | Inpatient (IN) | payer MEDICARE, MEDICAID ==
[2020-11-21] VITALS (51 sets, daily range): BP systolic 106–184; BP diastolic 60–106
[~2020-11-21] VITALS: Ht 175.3 cm; Wt 71.9 kg
[2020-11-21] MEDS ORDERED: HYDRALAZINE HCL 50MG TABLET PO ONE (06:30)
[2020-11-21] MEDS ORDERED: FUROSEMIDE 40MG/4ML VIAL IV ONE (06:30)
[2020-11-21] MEDS ORDERED: AMLODIPINE 5MG TABLET PO ONE (06:30)
[2020-11-21] MEDS ORDERED: CLONIDINE 0.3MG TABLET PO ONE (06:30)
[2020-11-21] MEDS ORDERED: NITROGLYCERIN OINT 1GM/INCH UDPKT TD ONE (06:30)
[2020-11-21 06:45] LABS: BASOPHILS % 0.6 % (0.0-2.0); EOSINOPHILS % 4.1 % (0.0-5.0); HEMATOCRIT. 32.4 % (42.0-52.0); HEMOGLOBIN. 10.5 g/dL (14.0-18.0); LYMPHOCYTES % 10.6 % (20.0-50.0); MEAN CORPUSCULAR HEMOGLOBIN 31.1 pg (28.0-32.0); MEAN CORPUSCULAR VOLUME 95.7 fL (80.0-94.0); MEAN PLATELET VOLUME 7.4 fl (7.4-10.4); MONOCYTES % 6.6 % (2.0-8.0); NEUTROPHILS % 78.1 % (40.0-76.0); PLATELET 353 x1000/uL (130-400); RED BLOOD CELL COUNT 3.38 mill/uL (4.7-6.1); RED CELL DISTRIBUTION WIDTH 19.4 % (11.6-14.6)
[2020-11-21 06:51] LABS: CHLORIDE 113 mEq/L (98-107)
[2020-11-21] MEDS ORDERED: NICARDIPINE 40MG/200ML PREMIX 200 ML IV STA (07:29)
[2020-11-21] MEDS ORDERED: ACETAMINOPHEN 325MG TABLET PO PRN (09:30)
[2020-11-21] MEDS ORDERED: HYDRALAZINE HCL 100MG TABLET PO SCH (09:30)
[2020-11-21] MEDS: AMLODIPINE 10MG TABLET PO SCH (09:30)
[2020-11-21] MEDS ORDERED: ONDANSETRON HCL 4MG/2ML INJ IV PRN (09:30)
[2020-11-21] MEDS ORDERED: IPRATROPIUM/ALBUTEROL 0.5-3(2.5)MG/3ML NEB HHN PRN (10:15)
[2020-11-21] MEDS ORDERED: HEPARIN SODIUM 1,000 UNIT/1ML VIAL IV SCH (12:45)
[2020-11-21] MEDS: CLONIDINE 0.1MG TABLET PO SCH ×2 (15:15→22:38)
[2020-11-21] MEDS: HYDRALAZINE HCL 100MG TABLET PO SCH ×2 (15:15→22:39)
[2020-11-21 15:41] LABS: BG BASE EXCESS 0.4 mmol/L (-2.0-2.0); BG CARBOXYHEMOGLOBIN 0.4 % (0.5-1.5); BG DEOXYHEMOGLOBIN 2.6 % (0.0-5.0); BG HCO3 ACT 23.2 mmol/L (22.0-26.0); BG METHEMOGLOBIN 0.2 % (0.0-1.5); BG OXYGEN SATURATION 97.4 % (92.0-98.5); BG OXYHEMOGLOBIN 96.8 % (94.0-97.0); BG PCO2 31.3 mmHg (35.0-45.0); BG PH 7.488 (7.350-7.450); BG PO2 88.2 mmHg (75.0-100.0); BG SAMPLE SITE RIGHT RADIAL; BG TOTAL HEMOGLOBIN 11.2 g/dL (12.0-18.0); BG VENT MODE NASAL CANNULA
[2020-11-21] MEDS ORDERED: IOHEXOL-300 100 ML BOTTLE ONE (23:49)
[2020-11-22] VITALS (62 sets, daily range): BP systolic 117–174; BP diastolic 61–96
[2020-11-22] MEDS ORDERED: DIPHENHYDRAMINE 50MG/ML VIAL IV NR (02:00)
[2020-11-22] MEDS: CLONIDINE 0.1MG TABLET PO SCH ×2 (05:25→13:29)
[2020-11-22] MEDS: HYDRALAZINE HCL 100MG TABLET PO SCH ×2 (05:25→13:29)
[2020-11-22 05:26] LABS: EOSINOPHILS % 5.9 % (0.0-5.0); HEMATOCRIT. 30.3 % (42.0-52.0); HEMOGLOBIN. 9.8 g/dL (14.0-18.0); LYMPHOCYTES % 17.9 % (20.0-50.0); MEAN CORPUSCULAR HEMOGLOBIN 30.5 pg (28.0-32.0); MEAN CORPUSCULAR VOLUME 94.1 fL (80.0-94.0); MEAN PLATELET VOLUME 8.1 fl (7.4-10.4); MONOCYTES % 9.4 % (2.0-8.0); NEUTROPHILS % 65.8 % (40.0-76.0); PLATELET 307 x1000/uL (130-400); RED BLOOD CELL COUNT 3.22 mill/uL (4.7-6.1); RED CELL DISTRIBUTION WIDTH 18.7 % (11.6-14.6)
[2020-11-22] MEDS: AMLODIPINE 10MG TABLET PO SCH ×2 (09:00→11:15)
[2020-11-22] MEDS ORDERED: DIPHENHYDRAMINE 50MG/ML VIAL IV SCH ×2 (10:00→11:15)
[2020-11-22] MEDS ORDERED: HYDR100T26 PO (11:41)
[2020-11-22] MEDS ORDERED: CLON0.1T PO (11:41)
[2020-11-22] MEDS ORDERED: AMLO10TA80 PO (11:41)
== END 2020-11-22 17:30 | disposition home or self-care (01) | DRG 291 ==
LOC: ER 05:36 → CVICU 08:11 → EDBEDREQ 08:13 → EDBEDREQSVC 08:13 → EDBEDREQTM 08:13 → ENRESERV 08:36
PROVIDERS: ADMIT Internal Medicine; ATTEND Internal Medicine
PROC: 5A09357 Assistance with Respiratory Ventilation, Less than 24 Consecutive Hours, Continuous Positive Airway Pressure (ICD-10-PCS; principal; 2020-11-21)
PROC: 5A1D70Z Performance of Urinary Filtration, Intermittent, Less than 6 Hours Per Day (ICD-10-PCS; 2020-11-21)
PROC: 5A1D70Z Performance of Urinary Filtration, Intermittent, Less than 6 Hours Per Day (ICD-10-PCS; 2020-11-22)
DX: I13.2 Hypertensive heart and chronic kidney disease with heart failure and with stage 5 chronic kidney disease, or end stage renal disease (principal); I50.33 Acute on chronic diastolic (congestive) heart failure; J96.01 Acute respiratory failure with hypoxia; N18.6 End stage renal disease; I16.0 Hypertensive urgency; D64.9 Anemia, unspecified; E11.22 Type 2 diabetes mellitus with diabetic chronic kidney disease; F17.210 Nicotine dependence, cigarettes, uncomplicated; R63.4 Abnormal weight loss; I25.10 Atherosclerotic heart disease of native coronary artery without angina pectoris; J44.9 Chronic obstructive pulmonary disease, unspecified; Z95.5 Presence of coronary angioplasty implant and graft; Z99.2 Dependence on renal dialysis; Z88.6 Allergy status to analgesic agent; Z88.8 Allergy status to other drugs, medicaments and biological substances; Z68.23 Body mass index [BMI] 23.0-23.9, adult; Z79.1 Long term (current) use of non-steroidal anti-inflammatories (NSAID); Z79.899 Other long term (current) drug therapy; Z79.82 Long term (current) use of aspirin; Z71.6 Tobacco abuse counseling
CPT/HCPCS: 36415; 36600; 71045; 71260; 74177; 80048; 80053; 82140; 82375; 82805; 82962; 84484; 85025; 93005; 94660; 99291; J1200; J1644; J1940; Q9967

== ENCOUNTER 2020-11-23 19:23 | Emergency (ER) | payer MEDICARE, MEDICAID ==
[~2020-11-23] VITALS: Ht 185.4 cm; Wt 83.0 kg
[~2020-11-23 19:23] MED LIST changes: +AMLO10TA80 PO; -CARV6.2548 PO; +CLON0.1T PO; +HYDR100T26 PO; -LEVO250T58 PO
[2020-11-23 19:25] VITALS: BP 190/110
== END 2020-11-23 22:41 | disposition left against medical advice (07) ==
LOC: ER 19:23
DX: Z53.21 Procedure and treatment not carried out due to patient leaving prior to being seen by health care provider (principal)
CPT/HCPCS: 93005

== ENCOUNTER 2020-11-24 18:22 | Inpatient (IN) | payer MEDICARE, MEDICAID ==
[~2020-11-24] VITALS: Ht 180.3 cm; Wt 69.9 kg
[2020-11-24] MEDS ORDERED: NICARDIPINE 40MG/200ML PREMIX 200 ML IV STA (18:35)
[2020-11-24] MEDS ORDERED: LORAZEPAM 2MG/ML CPJ IM ONE (18:45)
[2020-11-24] MEDS ORDERED: HALOPERIDOL LACTATE 5MG/ML VIAL IM ONE (18:45)
[2020-11-24 19:07] LABS: EOSINOPHILS % 2.6 % (0.0-5.0); HEMATOCRIT. 31.5 % (42.0-52.0); HEMOGLOBIN. 10.6 g/dL (14.0-18.0); LYMPHOCYTES % 16.5 % (20.0-50.0); MEAN CORPUSCULAR HEMOGLOBIN 32.3 pg (28.0-32.0); MEAN CORPUSCULAR VOLUME 96.4 fL (80.0-94.0); MEAN PLATELET VOLUME 7.7 fl (7.4-10.4); MONOCYTES % 8.7 % (2.0-8.0); NEUTROPHILS % 71.2 % (40.0-76.0); PLATELET 353 x1000/uL (130-400); RED BLOOD CELL COUNT 3.27 mill/uL (4.7-6.1); RED CELL DISTRIBUTION WIDTH 19.1 % (11.6-14.6)
[2020-11-24 19:13] LABS: CHLORIDE 107 mEq/L (98-107)
[2020-11-24 19:16] LABS: ETHANOL BLOOD < 10 mg/dL
[2020-11-24 19:19] LABS: LDL CHOLESTEROL 97 mg/dL (5-100)
[2020-11-24] MEDS ORDERED: IOHEXOL-350 100 ML BOTTLE ONE (19:36)
[2020-11-24 19:39] LABS: PROTHROMBIN TIME 10.7 sec (9.6-11.0)
[2020-11-25 11:39] LABS: CLARITY URINE CLEAR (CLEAR); COLOR URINE YELLOW (YELLOW); KETONES URINE NEGATIVE (NEGATIVE); LEUKOCYTE ESTERASE URINE NEGATIVE (NEGATIVE); NITRITE URINE NEGATIVE (NEGATIVE); OCCULT BLOOD URINE 1+ (NEGATIVE); PH URINE 6.5 (4.5-8.0); PROTEIN URINE 3+ (NEGATIVE); SPECIFIC GRAVITY URINE 1.017 (1.005-1.030); UROBILINOGEN URINE 0.2 E.U./dL (0.2-1.0)
[2020-11-25 11:55] LABS: *BARBITURATES SCREEN URINE NEGATIVE (NEGATIVE); *COCAINE SCREEN URINE PRESUMTIVE POSITIVE (NEGATIVE)
[2020-11-25 11:56] LABS: *AMPHETAMINES SCREEN URINE NEGATIVE (NEGATIVE); CANNABINOID URINE SCREEN NEGATIVE (NEGATIVE); METHADONE URINE SCREEN NEGATIVE (NEGATIVE); OPIATES URINE SCREEN NEGATIVE (NEGATIVE); PHENCYCLIDINE URINE SCREEN PRESUMTIVE POSITIVE (NEGATIVE)
[2020-11-25 11:58] LABS: *BENZODIAZEPINES SCREEN URINE NEGATIVE (NEGATIVE)
[2020-11-25] MEDS ORDERED: MAGNESIUM/ALUMINUM HYDROXIDE/SIMETHICONE 30ML UDC PO PRN (13:45)
[2020-11-25] MEDS ORDERED: DOCUSATE SODIUM 100MG CAPSULE PO PRN (13:45)
[2020-11-25] MEDS ORDERED: ONDANSETRON HCL 4MG/2ML INJ IV PRN (13:45)
[2020-11-25] MEDS ORDERED: GUAIFENESIN 200MG/10ML SUGAR FREE UDC PO PRN (13:45)
[2020-11-25] MEDS ORDERED: DIPHENHYDRAMINE 50MG/ML VIAL IV PRN (13:45)
[2020-11-25] MEDS ORDERED: ACETAMINOPHEN 650MG SUPP PR PRN (13:45)
[2020-11-25] MEDS ORDERED: ACETAMINOPHEN 325MG TABLET PO PRN (13:45)
[2020-11-25] MEDS ORDERED: NA PHOS,M-B/NA PHOS,DI-BA ENEMA 118ML PR PRN (13:45)
[2020-11-25] MEDS ORDERED: HYDRALAZINE 20MG/ML VIAL IV PRN (13:45)
[2020-11-25] MEDS ORDERED: HYDROCODONE/ACETAMINOPHEN 5/325MG TABLET PO PRN (13:45)
[2020-11-25] MEDS ORDERED: IPRATROPIUM/ALBUTEROL 0.5-3(2.5)MG/3ML NEB NEB PRN (13:45)
[2020-11-25 13:47] VITALS: BP 202/101
[2020-11-25] MEDS: HYDRALAZINE HCL 50MG TABLET PO SCH (14:12)
[2020-11-25 14:16] LABS: BG BASE EXCESS -6.8 mmol/L (-2.0-2.0); BG CARBOXYHEMOGLOBIN 0.7 % (0.5-1.5); BG DEOXYHEMOGLOBIN 4.7 % (0.0-5.0); BG FRACTION INSPIRED OXYGEN 21; BG HCO3 ACT 18.9 mmol/L (22.0-26.0); BG METHEMOGLOBIN 0.1 % (0.0-1.5); BG OXYGEN SATURATION 95.3 % (92.0-98.5); BG OXYHEMOGLOBIN 94.5 % (94.0-97.0); BG PCO2 38.5 mmHg (35.0-45.0); BG PH 7.308 (7.350-7.450); BG PO2 81.2 mmHg (75.0-100.0); BG SAMPLE SITE RIGHT RADIAL; BG TOTAL HEMOGLOBIN 11.4 g/dL (12.0-18.0); BG VENT MODE ROOM AIR
[2020-11-25 14:30] VITALS: BP 202/101
[2020-11-25 16:00] VITALS: BP 202/113
[2020-11-25] MEDS: AMLODIPINE 10MG TABLET PO SCH (16:08)
[2020-11-25] MEDS: ASPIRIN 81MG EC TABLET PO SCH (16:09)
[2020-11-25 16:17] LABS: EOSINOPHILS % 2.6 % (0.0-5.0); HEMATOCRIT. 32.3 % (42.0-52.0); HEMOGLOBIN. 10.9 g/dL (14.0-18.0); MEAN CORPUSCULAR HEMOGLOBIN 31.9 pg (28.0-32.0); MEAN CORPUSCULAR VOLUME 94.5 fL (80.0-94.0); MEAN PLATELET VOLUME 7.4 fl (7.4-10.4); MONOCYTES % 6.9 % (2.0-8.0); NEUTROPHILS % 77.5 % (40.0-76.0); PLATELET 402 x1000/uL (130-400); RED BLOOD CELL COUNT 3.42 mill/uL (4.7-6.1); RED CELL DISTRIBUTION WIDTH 18.6 % (11.6-14.6)
[2020-11-25 16:26] LABS: CHLORIDE 106 mEq/L (98-107)
[2020-11-25 16:36] LABS: CREATINE KINASE 354 IU/L (39-308)
[2020-11-25 16:38] LABS: CREATINE KINASE MB FRACTION 5.5 ng/mL (0.5-3.6)
[2020-11-25 20:00] VITALS: BP 167/97
[2020-11-25] MEDS ORDERED: HEPARIN SODIUM 1,000 UNIT/1ML VIAL IV NR (20:45)
[2020-11-25 23:57] LABS: CREATINE KINASE MB FRACTION 4.7 ng/mL (0.5-3.6)
[2020-11-26] VITALS (7 sets, daily range): BP systolic 127–188; BP diastolic 62–90
[2020-11-26] MEDS: CLONIDINE 0.1MG TABLET PO PRN ×2 (00:25→12:23)
[2020-11-26] MEDS: HYDRALAZINE HCL 50MG TABLET PO SCH ×4 (00:25→21:17)
[2020-11-26] MEDS: LORAZEPAM 0.5MG TABLET PO PRN ×2 (00:32→17:11)
[2020-11-26] MEDS: ASPIRIN 81MG EC TABLET PO SCH (08:25)
[2020-11-26] MEDS: AMLODIPINE 10MG TABLET PO SCH (08:25)
[2020-11-26] MEDS: MUPIROCIN 2% OINT 22GM NS SCH ×2 (08:29→21:18)
[2020-11-26 08:37] LABS: CHLORIDE 105 mEq/L (98-107)
[2020-11-26 08:42] LABS: BASOPHILS % 0.9 % (0.0-2.0); EOSINOPHILS % 5.2 % (0.0-5.0); HEMATOCRIT. 33.9 % (42.0-52.0); LYMPHOCYTES % 15.4 % (20.0-50.0); MEAN CORPUSCULAR HEMOGLOBIN 30.6 pg (28.0-32.0); MEAN CORPUSCULAR VOLUME 94.5 fL (80.0-94.0); MONOCYTES % 8.1 % (2.0-8.0); NEUTROPHILS % 70.4 % (40.0-76.0); PLATELET 357 x1000/uL (130-400); RED BLOOD CELL COUNT 3.59 mill/uL (4.7-6.1); RED CELL DISTRIBUTION WIDTH 18.5 % (11.6-14.6)
[2020-11-26 08:46] LABS: LDL CHOLESTEROL 92 mg/dL (5-100)
[2020-11-26 08:48] LABS: HDL CHOLESTEROL 78 mg/dL (40-59); T4 FREE 1.21 ng/dL (0.76-1.46)
[2020-11-27] VITALS: BP 136/64
[2020-11-27 04:00] VITALS: BP 155/81
[2020-11-27] MEDS: HYDRALAZINE HCL 50MG TABLET PO SCH (07:01)
[2020-11-27 08:06] VITALS: BP 165/85
[2020-11-27 08:46] LABS: BASOPHILS % 1.3 % (0.0-2.0); EOSINOPHILS % 3.2 % (0.0-5.0); HEMATOCRIT. 31.4 % (42.0-52.0); HEMOGLOBIN. 10.3 g/dL (14.0-18.0); LYMPHOCYTES % 21.4 % (20.0-50.0); MEAN CORPUSCULAR HEMOGLOBIN 31.2 pg (28.0-32.0); MEAN CORPUSCULAR VOLUME 94.9 fL (80.0-94.0); MEAN PLATELET VOLUME 8.1 fl (7.4-10.4); MONOCYTES % 11.4 % (2.0-8.0); NEUTROPHILS % 62.7 % (40.0-76.0); PLATELET 350 x1000/uL (130-400); RED BLOOD CELL COUNT 3.31 mill/uL (4.7-6.1); RED CELL DISTRIBUTION WIDTH 18.3 % (11.6-14.6)
[2020-11-27] MEDS: AMLODIPINE 10MG TABLET PO SCH (09:00)
[2020-11-27] MEDS: ASPIRIN 81MG EC TABLET PO SCH (09:23)
[2020-11-27] MEDS: MUPIROCIN 2% OINT 22GM NS SCH (09:25)
[2020-11-27 12:10] VITALS: BP 151/85
== END 2020-11-27 14:39 | disposition left against medical advice (07) | DRG 70 ==
LOC: ER 18:22 → MICUSO 21:51 → 6WST 11-25 12:25
PROVIDERS: ADMIT Internal Medicine; ATTEND Internal Medicine
PROC: 5A1D70Z Performance of Urinary Filtration, Intermittent, Less than 6 Hours Per Day (ICD-10-PCS; principal; 2020-11-25)
PROC: 5A1D70Z Performance of Urinary Filtration, Intermittent, Less than 6 Hours Per Day (ICD-10-PCS; 2020-11-27)
DX: G93.41 Metabolic encephalopathy (principal); I50.33 Acute on chronic diastolic (congestive) heart failure; N18.6 End stage renal disease; I13.2 Hypertensive heart and chronic kidney disease with heart failure and with stage 5 chronic kidney disease, or end stage renal disease; D64.9 Anemia, unspecified; E11.22 Type 2 diabetes mellitus with diabetic chronic kidney disease; E87.5 Hyperkalemia; I25.10 Atherosclerotic heart disease of native coronary artery without angina pectoris; J44.9 Chronic obstructive pulmonary disease, unspecified; Z95.5 Presence of coronary angioplasty implant and graft; Z79.02 Long term (current) use of antithrombotics/antiplatelets; Z79.899 Other long term (current) drug therapy; Z91.15 Patient's noncompliance with renal dialysis; Z99.2 Dependence on renal dialysis; Z88.6 Allergy status to analgesic agent; Z88.8 Allergy status to other drugs, medicaments and biological substances; T40.5X5A Adverse effect of cocaine, initial encounter
CPT/HCPCS: 36415; 36600; 70551; 71045; 80048; 80053; 80061; 80305; 80320; 81003; 82140; 82375; 82550; 82553; 82805; 82962; 83721; 84439; 84443; 84484; 85025; 93005; 97161; 99285; J0360; J1200; J1630; J1644; J2060; Q9967; G0480

== ENCOUNTER 2020-12-11 19:34 | Emergency (ER) | payer MEDICARE, MEDICAID ==
[~2020-12-11] VITALS: Ht 175.3 cm; Wt 73.0 kg
[2020-12-11] MEDS ORDERED: HYDROCODONE/ACETAMINOPHEN 5/325MG TABLET PO STA (21:00)
[2020-12-11] MEDS ORDERED: MAGNESIUM/ALUMINUM HYDROXIDE/SIMETHICONE 30ML UDC PO STA (21:00)
[2020-12-11] MEDS ORDERED: ONDANSETRON 4MG ODT PO STA (21:00)
[2020-12-11 21:29] LABS: BASOPHILS % 0.6 % (0.0-2.0); HEMATOCRIT. 27.6 % (42.0-52.0); HEMOGLOBIN. 9.2 g/dL (14.0-18.0); LYMPHOCYTES % 11.3 % (20.0-50.0); MEAN PLATELET VOLUME 7.1 fl (7.4-10.4); MONOCYTES % 7.4 % (2.0-8.0); NEUTROPHILS % 74.7 % (40.0-76.0); PLATELET 299 x1000/uL (130-400); RED BLOOD CELL COUNT 2.87 mill/uL (4.7-6.1); RED CELL DISTRIBUTION WIDTH 17.9 % (11.6-14.6)
[2020-12-11 21:36] LABS: CHLORIDE 112 mEq/L (98-107)
[2020-12-11 21:45] LABS: PROTHROMBIN TIME 10.3 sec (9.6-11.0)
[2020-12-11] MEDS ORDERED: FUROSEMIDE 100MG/10ML VIAL IVP NR (22:15)
[2020-12-11] MEDS ORDERED: LABETALOL 5MG/ML SYR 20 MG/4 ML SYRINGE IV NR (22:30)
[2020-12-11] MEDS ORDERED: FAMOTIDINE 20MG/2ML VIAL IV NR (22:30)
[2020-12-11] MEDS ORDERED: LEVOFLOXACIN 750MG PREMIX 150 ML IV NR (22:30)
[2020-12-12] MEDS ORDERED: HYDRALAZINE 20MG/ML VIAL IV ONE (03:30)
[2020-12-12 04:00] VITALS: BP 173/77
== END 2020-12-12 05:18 | disposition short-term general hospital (02) ==
LOC: ER 19:57 → CANBEDREQ 12-12 06:32
DX: I13.2 Hypertensive heart and chronic kidney disease with heart failure and with stage 5 chronic kidney disease, or end stage renal disease (principal); N18.6 End stage renal disease; I50.9 Heart failure, unspecified; J18.9 Pneumonia, unspecified organism; E87.5 Hyperkalemia; J44.9 Chronic obstructive pulmonary disease, unspecified; Z91.15 Patient's noncompliance with renal dialysis; Z79.82 Long term (current) use of aspirin; Z88.6 Allergy status to analgesic agent; Z88.8 Allergy status to other drugs, medicaments and biological substances
CPT/HCPCS: 36415; 36556; 71045; 80053; 83690; 84484; 85025; 85610; 87426; 93005; 96365; 96366; 96375; 99285; J0360; J1940; J1956; J3490; Q0162

== ENCOUNTER 2020-12-28 14:13 | Inpatient (IN) | payer MEDICARE, MEDICAID ==
[~2020-12-28] VITALS: Ht 175.3 cm; Wt 74.8 kg
[2020-12-28] MEDS ORDERED: ACETAMINOPHEN 325MG TABLET PO ONE (16:15)
[2020-12-28] MEDS ORDERED: DIPHENHYDRAMINE 50MG/ML VIAL IV ONE (16:15)
[2020-12-28 16:29] LABS: BASOPHILS % 1.7 % (0.0-2.0); EOSINOPHILS % 6.6 % (0.0-5.0); HEMATOCRIT. 26.4 % (42.0-52.0); HEMOGLOBIN. 8.8 g/dL (14.0-18.0); LYMPHOCYTES % 16.1 % (20.0-50.0); MEAN CORPUSCULAR HEMOGLOBIN 31.8 pg (28.0-32.0); MEAN CORPUSCULAR VOLUME 95.3 fL (80.0-94.0); MEAN PLATELET VOLUME 7.5 fl (7.4-10.4); MONOCYTES % 9.9 % (2.0-8.0); NEUTROPHILS % 65.7 % (40.0-76.0); PLATELET 369 x1000/uL (130-400); RED BLOOD CELL COUNT 2.77 mill/uL (4.7-6.1); RED CELL DISTRIBUTION WIDTH 15.4 % (11.6-14.6)
[2020-12-28 16:31] LABS: CHLORIDE 110 mEq/L (98-107)
[2020-12-28] MEDS ORDERED: INSULIN REGULAR (HUMULIN R) 300UNITS/3ML VIAL IV ONE (17:45)
[2020-12-28] MEDS ORDERED: ALBUTEROL (0.083%) 2.5MG/3ML NEB HHN ONE (17:45)
[2020-12-28] MEDS ORDERED: SODIUM BICARBONATE 8.4% 1 MEQ/ML 50ML SYR IV ONE (17:45)
[2020-12-28] MEDS ORDERED: SODIUM POLYSTYRENE SULFONATE 15 G/60 ML BOT PO ONE (17:45)
[2020-12-28] MEDS ORDERED: DEXTROSE 50% WATER 50ML SYRINGE IV ONE (17:45)
[2020-12-28 19:57] LABS: PARTIAL THROMBOPLASTIN TIME 27.7 sec (23.4-31.0); PROTHROMBIN TIME 10.3 sec (9.6-11.0)
[2020-12-28 22:30] VITALS: BP 220/102
[2020-12-29] VITALS (16 sets, daily range): BP systolic 154–220; BP diastolic 58–103
[2020-12-29] MEDS: CLONIDINE 0.1MG TABLET PO PRN ×2 (00:09→21:00)
[2020-12-29] MEDS: HYDRALAZINE 20MG/ML VIAL IV PRN ×2 (00:09→21:00)
[2020-12-29] MEDS: ZOLPIDEM TARTRATE 5MG TABLET PO PRN (00:10)
[2020-12-29] MEDS ORDERED: HYDRALAZINE HCL 100MG TABLET PO SCH ×2 (00:15→06:00)
[2020-12-29 05:54] LABS: PROTHROMBIN TIME 10.6 sec (9.6-11.0)
[2020-12-29 06:17] LABS: HEPATITIS B SURFACE AB 20.3 mIU/mL
[2020-12-29 06:28] LABS: HEPATITIS B SURFACE ANTIGEN NEGATIVE
[2020-12-29 06:57] LABS: BASOPHILS % 0.7 % (0.0-2.0); EOSINOPHILS % 4.1 % (0.0-5.0); HEMATOCRIT. 24.1 % (42.0-52.0); LYMPHOCYTES % 13.6 % (20.0-50.0); MEAN CORPUSCULAR HEMOGLOBIN 31.3 pg (28.0-32.0); MEAN CORPUSCULAR VOLUME 93.7 fL (80.0-94.0); MONOCYTES % 9.8 % (2.0-8.0); NEUTROPHILS % 71.8 % (40.0-76.0); PLATELET 325 x1000/uL (130-400); RED BLOOD CELL COUNT 2.57 mill/uL (4.7-6.1); RED CELL DISTRIBUTION WIDTH 15.2 % (11.6-14.6)
[2020-12-29] MEDS ORDERED: IOHEXOL-300 50 ML BOTTLE IV ONE (09:00)
[2020-12-29] MEDS ORDERED: CEFAZOLIN 1000MG PREMIX 50 ML IV ONE ×2 (09:00→09:23)
[2020-12-29] MEDS ORDERED: LIDOCAINE HCL 1% 20ML VIAL (Pyxis) INJ ONE (09:00)
[2020-12-29] MEDS ORDERED: TICAGRELOR 90 MG TABLET PO SCH (09:00)
[2020-12-29] MEDS ORDERED: FENTANYL CITRATE/PF 50MCG/ML 2ML VIAL IV ONE (09:05)
[2020-12-29] MEDS ORDERED: FENTANYL CITRATE/PF 50MCG/ML 2ML VIAL ONE (09:23)
[2020-12-29] MEDS: ASPIRIN 81MG TABLET PO SCH (10:20)
[2020-12-29] MEDS: OMEPRAZOLE 20MG CAPSULE EXTENDED RELEASE PO SCH (10:20)
[2020-12-29] MEDS: FOLIC ACID/VITAMIN B COMP W-C TABLET PO SCH (10:21)
[2020-12-29] MEDS: AMLODIPINE 10MG TABLET PO SCH (10:21)
[2020-12-29] MEDS: SEVELAMER CARBONATE 800 MG TABLET PO SCH ×3 (10:21→16:25)
[2020-12-29 13:17] LABS: HEPATITIS B SURFACE ANTIGEN NEGATIVE
[2020-12-29 13:46] LABS: HEPATITIS A AB IGM NEGATIVE (NEGATIVE)
[2020-12-29] MEDS ORDERED: ATORVASTATIN CALCIUM 40MG TABLET PO SCH (21:00)
[2020-12-29] MEDS ORDERED: GABAPENTIN 300MG CAPSULE PO SCH (21:00)
[2020-12-29] MEDS: HYDROCODONE/ACETAMINOPHEN 5/325MG TABLET PO PRN (23:41)
[2020-12-30] VITALS: BP 128/86
[2020-12-30] MEDS: ZOLPIDEM TARTRATE 5MG TABLET PO PRN (02:00)
[2020-12-30 04:00] VITALS: BP 166/73
[2020-12-30] MEDS: CLONIDINE 0.1MG TABLET PO PRN (05:02)
[2020-12-30 07:20] LABS: BASOPHILS % 1.3 % (0.0-2.0); EOSINOPHILS % 7.4 % (0.0-5.0); HEMATOCRIT. 26.4 % (42.0-52.0); LYMPHOCYTES % 17.3 % (20.0-50.0); MEAN CORPUSCULAR HEMOGLOBIN 31.5 pg (28.0-32.0); MEAN CORPUSCULAR VOLUME 92.1 fL (80.0-94.0); MEAN PLATELET VOLUME 8.4 fl (7.4-10.4); MONOCYTES % 9.9 % (2.0-8.0); NEUTROPHILS % 64.1 % (40.0-76.0); PLATELET 354 x1000/uL (130-400); RED BLOOD CELL COUNT 2.87 mill/uL (4.7-6.1); RED CELL DISTRIBUTION WIDTH 15.2 % (11.6-14.6)
[2020-12-30 08:00] VITALS: BP 170/82
[2020-12-30] MEDS: OMEPRAZOLE 20MG CAPSULE EXTENDED RELEASE PO SCH (09:19)
[2020-12-30] MEDS: FOLIC ACID/VITAMIN B COMP W-C TABLET PO SCH (09:19)
[2020-12-30] MEDS: SEVELAMER CARBONATE 800 MG TABLET PO SCH (09:19)
[2020-12-30] MEDS: AMLODIPINE 10MG TABLET PO SCH (09:20)
[2020-12-30] MEDS: ASPIRIN 81MG TABLET PO SCH (09:20)
[2020-12-30] MEDS: HYDROCODONE/ACETAMINOPHEN 5/325MG TABLET PO PRN (09:31)
[2020-12-30] MEDS: HYDRALAZINE 20MG/ML VIAL IV PRN (11:14)
[2020-12-30 12:00] VITALS: BP 163/77
[2020-12-30] MEDS ORDERED: ALBU18HF2 IH (12:29)
[2020-12-30] MEDS ORDERED: IPRA3AMP9 NEB (12:29)
[2020-12-30] MEDS ORDERED: FLUT1DIS3 INH (12:29)
[2020-12-30] MEDS ORDERED: CLONIDINE 0.1MG TABLET PO SCH (14:00)
== END 2020-12-30 12:20 | disposition home or self-care (01) | DRG 673 ==
LOC: ER 14:13 → EDBEDREQ 17:43 → 5WST 18:21 → EDBEDREQ 18:37 → ENRESERV 20:30
PROVIDERS: ADMIT Internal Medicine; ATTEND Internal Medicine
PROC: 5A1D70Z Performance of Urinary Filtration, Intermittent, Less than 6 Hours Per Day (ICD-10-PCS; 2020-12-28)
PROC: 0JH63XZ Insertion of Tunneled Vascular Access Device into Chest Subcutaneous Tissue and Fascia, Percutaneous Approach (ICD-10-PCS; principal; 2020-12-29)
PROC: 02HV33Z Insertion of Infusion Device into Superior Vena Cava, Percutaneous Approach (ICD-10-PCS; 2020-12-29)
PROC: B5181ZA Fluoroscopy of Superior Vena Cava using Low Osmolar Contrast, Guidance (ICD-10-PCS; 2020-12-29)
PROC: B548ZZA Ultrasonography of Superior Vena Cava, Guidance (ICD-10-PCS; 2020-12-29)
DX: T82.42XA Displacement of vascular dialysis catheter, initial encounter (principal); N18.6 End stage renal disease; I12.0 Hypertensive chronic kidney disease with stage 5 chronic kidney disease or end stage renal disease; D64.9 Anemia, unspecified; E87.5 Hyperkalemia; E87.8 Other disorders of electrolyte and fluid balance, not elsewhere classified; Z20.822 Contact with and (suspected) exposure to COVID-19; Y92.89 Other specified places as the place of occurrence of the external cause; Y84.1 Kidney dialysis as the cause of abnormal reaction of the patient, or of later complication, without mention of misadventure at the time of the procedure; F17.210 Nicotine dependence, cigarettes, uncomplicated; J44.9 Chronic obstructive pulmonary disease, unspecified; Z99.2 Dependence on renal dialysis; Z88.6 Allergy status to analgesic agent; Z88.8 Allergy status to other drugs, medicaments and biological substances; Z71.6 Tobacco abuse counseling
CPT/HCPCS: 36415; 36558; 71045; 76937; 77001; 80048; 80053; 82962; 83880; 84484; 85025; 86705; 86706; 86709; 86803; 86850; 86900; 87340; 87426; 93005; 94644; 99152; 99153; 99285; C1750; C1769; C1887; C1893; J0360; J0690; J1200; J1642; J1815; J3010; J3490; Q9967; G0500

== ENCOUNTER 2021-03-05 21:06 | Inpatient (IN) | payer MEDICARE, MEDICAID ==
[~2021-03-05] VITALS: Ht 175.3 cm; Wt 81.6 kg
[~2021-03-05 21:06] MED LIST changes: +ALBU18HF2 IH; -AMLO10TA80 PO; -CLON0.1T PO; +FLUT1DIS3 INH; -HYDR-4135 MT; +IPRA3AMP9 NEB; +T3 PO
[2021-03-05] MEDS ORDERED: FUROSEMIDE 100MG/10ML VIAL IV STA (21:39)
[2021-03-05] MEDS ORDERED: ALBUTEROL (0.083%) 2.5MG/3ML NEB HHN ONE (21:45)
[2021-03-05] MEDS ORDERED: SODIUM BICARBONATE 8.4% 1 MEQ/ML 50ML SYR IV ONE (21:45)
[2021-03-05] MEDS ORDERED: INSULIN REGULAR (HUMULIN R) 300UNITS/3ML VIAL IV ONE (21:45)
[2021-03-05] MEDS ORDERED: CALCIUM GLUCONATE 100MG/ML 10ML VIAL IV ONE (21:45)
[2021-03-05] MEDS ORDERED: DEXTROSE 50% WATER 50ML SYRINGE IV ONE (21:45)
[2021-03-05 22:26] LABS: BG BASE EXCESS -12.8 mmol/L (-2.0-2.0); BG CARBOXYHEMOGLOBIN 1.2 % (0.5-1.5); BG DEOXYHEMOGLOBIN 5.4 % (0.0-5.0); BG FRACTION INSPIRED OXYGEN 21; BG HCO3 ACT 13.3 mmol/L (22.0-26.0); BG METHEMOGLOBIN 0.4 % (0.0-1.5); BG OXYGEN SATURATION 94.5 % (92.0-98.5); BG PCO2 31.5 mmHg (35.0-45.0); BG PH 7.244 (7.350-7.450); BG PO2 82.1 mmHg (75.0-100.0); BG SAMPLE SITE LEFT BRACHIAL; BG TOTAL HEMOGLOBIN 8.1 g/dL (12.0-18.0); BG VENT MODE ROOM AIR
[2021-03-06 00:01] LABS: HEMATOCRIT. 23.3 % (42.0-52.0); LYMPHOCYTES % 11.2 % (20.0-50.0); MEAN CORPUSCULAR VOLUME 90.3 fL (80.0-94.0); MEAN PLATELET VOLUME 7.7 fl (7.4-10.4); MONOCYTES % 7.3 % (2.0-8.0); NEUTROPHILS % 75.5 % (40.0-76.0); PLATELET 314 x1000/uL (130-400); RED BLOOD CELL COUNT 2.58 mill/uL (4.7-6.1); RED CELL DISTRIBUTION WIDTH 15.6 % (11.6-14.6)
[2021-03-06 00:59] LABS: CHLORIDE 106 mEq/L (98-107)
[2021-03-06] MEDS ORDERED: DEXTROSE 50% WATER 50ML SYRINGE IV SCH ×2 (01:45→02:00)
[2021-03-06] MEDS ORDERED: SODIUM BICARBONATE 8.4% 1 MEQ/ML 50ML SYR IV SCH (01:45)
[2021-03-06] MEDS ORDERED: INSULIN REGULAR (HUMULIN R) 300UNITS/3ML VIAL IV SCH (02:00)
[2021-03-06] MEDS: BLOOD SUGAR DIAGNOSTIC STRIP TEST SCH ×5 (02:01→20:03)
[2021-03-06] MEDS ORDERED: CALCIUM GLUCONATE 100MG/ML 10ML VIAL IV ONE (02:15)
[2021-03-06] MEDS: SODIUM BICARBONATE 100 MEQ in SODIUM CHLORIDE 0.45% 1,000 ML IV SCH ×2 (02:48→20:02)
[2021-03-06 03:54] LABS: HEPATITIS B SURFACE ANTIGEN NEGATIVE
[2021-03-06] MEDS ORDERED: DEXTROSE 50% WATER 50ML SYRINGE IV PRN (05:00)
[2021-03-06] MEDS ORDERED: ACETAMINOPHEN 325MG TABLET PO PRN ×2 (06:30→10:45)
[2021-03-06 08:06] LABS: HEPATITIS A AB IGM NEGATIVE (NEGATIVE)
[2021-03-06 10:10] VITALS: BP 174/80
[2021-03-06 10:15] VITALS: BP 174/80
[2021-03-06] MEDS ORDERED: ACETAMINOPHEN 650MG SUPP PR PRN (10:45)
[2021-03-06] MEDS ORDERED: LORAZEPAM 0.5MG TABLET PO PRN (10:45)
[2021-03-06] MEDS ORDERED: IPRATROPIUM/ALBUTEROL 0.5-3(2.5)MG/3ML NEB NEB PRN (10:45)
[2021-03-06] MEDS ORDERED: GUAIFENESIN 200MG/10ML SUGAR FREE UDC PO PRN (10:45)
[2021-03-06] MEDS ORDERED: MAGNESIUM/ALUMINUM HYDROXIDE/SIMETHICONE 30ML UDC PO PRN (10:45)
[2021-03-06] MEDS ORDERED: HYDRALAZINE 20MG/ML VIAL IV PRN (10:45)
[2021-03-06] MEDS ORDERED: ONDANSETRON HCL 4MG/2ML INJ IV PRN (10:45)
[2021-03-06] MEDS ORDERED: DOCUSATE SODIUM 100MG CAPSULE PO PRN (10:45)
[2021-03-06] MEDS ORDERED: DIPHENHYDRAMINE 50MG/ML VIAL IV PRN (10:45)
[2021-03-06] MEDS ORDERED: HYDROCODONE/ACETAMINOPHEN 5/325MG TABLET PO PRN (10:45)
[2021-03-06] MEDS: ASPIRIN 81MG EC TABLET PO SCH (11:46)
[2021-03-06] MEDS: FAMOTIDINE 20MG/2ML VIAL IV SCH (11:46)
[2021-03-06] MEDS: CLONIDINE 0.1MG TABLET PO PRN (11:53)
[2021-03-06 12:00] VITALS: BP 183/77
[2021-03-06 13:06] LABS: BG BASE EXCESS 1.3 mmol/L (-2.0-2.0); BG CARBOXYHEMOGLOBIN 0.3 % (0.5-1.5); BG DEOXYHEMOGLOBIN 4.2 % (0.0-5.0); BG FRACTION INSPIRED OXYGEN 21; BG METHEMOGLOBIN 0.4 % (0.0-1.5); BG OXYGEN SATURATION 95.8 % (92.0-98.5); BG OXYHEMOGLOBIN 95.1 % (94.0-97.0); BG PCO2 35.7 mmHg (35.0-45.0); BG PH 7.463 (7.350-7.450); BG PO2 82.9 mmHg (75.0-100.0); BG SAMPLE SITE LEFT RADIAL; BG TOTAL HEMOGLOBIN 8.3 g/dL (12.0-18.0); BG VENT MODE ROOM AIR
[2021-03-06 13:08] LABS: HEMATOCRIT. 22.4 % (42.0-52.0); HEMOGLOBIN. 7.6 g/dL (14.0-18.0); LYMPHOCYTES % 13.6 % (20.0-50.0); MEAN CORPUSCULAR HEMOGLOBIN 30.1 pg (28.0-32.0); MEAN CORPUSCULAR VOLUME 89.4 fL (80.0-94.0); MEAN PLATELET VOLUME 7.5 fl (7.4-10.4); MONOCYTES % 11.1 % (2.0-8.0); NEUTROPHILS % 68.3 % (40.0-76.0); PLATELET 284 x1000/uL (130-400); RED BLOOD CELL COUNT 2.51 mill/uL (4.7-6.1); RED CELL DISTRIBUTION WIDTH 15.8 % (11.6-14.6)
[2021-03-06 13:12] LABS: CHLORIDE 100 mEq/L (98-107)
[2021-03-06 15:23] LABS: PROTHROMBIN TIME 11.1 sec (9.6-11.0)
[2021-03-06 15:31] LABS: CREATINE KINASE MB FRACTION 1.8 ng/mL (0.5-3.6)
[2021-03-06 16:00] VITALS: BP 127/54
[2021-03-06 20:00] VITALS: BP 133/57
[2021-03-06] MEDS ORDERED: NALOXONE HCL 0.4MG/ML VIAL IV PRN (20:15)
[2021-03-07] VITALS (9 sets, daily range): BP systolic 139–177; BP diastolic 55–93
[2021-03-07 00:18] LABS: CREATINE KINASE MB FRACTION 2.1 ng/mL (0.5-3.6)
[2021-03-07 06:53] LABS: EOSINOPHILS % 6.3 % (0.0-5.0); HEMATOCRIT. 21.7 % (42.0-52.0); HEMOGLOBIN. 7.6 g/dL (14.0-18.0); MEAN CORPUSCULAR HEMOGLOBIN 31.2 pg (28.0-32.0); MEAN CORPUSCULAR VOLUME 88.7 fL (80.0-94.0); MEAN PLATELET VOLUME 7.6 fl (7.4-10.4); MONOCYTES % 10.6 % (2.0-8.0); NEUTROPHILS % 67.1 % (40.0-76.0); PLATELET 268 x1000/uL (130-400); RED BLOOD CELL COUNT 2.45 mill/uL (4.7-6.1); RED CELL DISTRIBUTION WIDTH 15.5 % (11.6-14.6)
[2021-03-07 07:08] LABS: CHLORIDE 100 mEq/L (98-107)
[2021-03-07] MEDS: BLOOD SUGAR DIAGNOSTIC STRIP TEST SCH ×4 (07:20→21:19)
[2021-03-07 07:21] LABS: HDL CHOLESTEROL 49 mg/dL (40-59); T4 FREE 1.18 ng/dL (0.76-1.46)
[2021-03-07 07:23] LABS: LDL CHOLESTEROL 87 mg/dL (5-100)
[2021-03-07] MEDS: FAMOTIDINE 20MG/2ML VIAL IV SCH (08:46)
[2021-03-07] MEDS: ASPIRIN 81MG EC TABLET PO SCH (08:46)
[2021-03-07] MEDS: SODIUM BICARBONATE 100 MEQ in SODIUM CHLORIDE 0.45% 1,000 ML IV SCH (14:55)
[2021-03-07] MEDS ORDERED: EPOETIN ALFA-EPBX 10,000 UNIT/ML VIAL SUBCUT SCH (21:00)
[2021-03-07] MEDS: CLONIDINE 0.1MG TABLET PO PRN (21:19)
== END 2021-03-07 22:45 | disposition home or self-care (01) | DRG 640 ==
LOC: ER 21:06 → MICUSO 03-06 00:50 → 6WST 03-06 09:02
PROVIDERS: ADMIT Internal Medicine; ATTEND Internal Medicine
PROC: 5A1D70Z Performance of Urinary Filtration, Intermittent, Less than 6 Hours Per Day (ICD-10-PCS; principal; 2021-03-06)
PROC: 5A1D70Z Performance of Urinary Filtration, Intermittent, Less than 6 Hours Per Day (ICD-10-PCS; 2021-03-07)
PROC: 30233N1 Transfusion of Nonautologous Red Blood Cells into Peripheral Vein, Percutaneous Approach (ICD-10-PCS; 2021-03-07)
DX: E87.5 Hyperkalemia (principal); N18.6 End stage renal disease; I13.2 Hypertensive heart and chronic kidney disease with heart failure and with stage 5 chronic kidney disease, or end stage renal disease; N17.9 Acute kidney failure, unspecified; J44.1 Chronic obstructive pulmonary disease with (acute) exacerbation; E87.2 Acidosis; I50.9 Heart failure, unspecified; B19.20 Unspecified viral hepatitis C without hepatic coma; D64.9 Anemia, unspecified; F17.210 Nicotine dependence, cigarettes, uncomplicated; F20.9 Schizophrenia, unspecified; G89.29 Other chronic pain; Z20.822 Contact with and (suspected) exposure to COVID-19; M47.812 Spondylosis without myelopathy or radiculopathy, cervical region; M54.9 Dorsalgia, unspecified; M48.02 Spinal stenosis, cervical region; M48.061 Spinal stenosis, lumbar region without neurogenic claudication; Z79.02 Long term (current) use of antithrombotics/antiplatelets; Z79.51 Long term (current) use of inhaled steroids; Z79.899 Other long term (current) drug therapy; Z90.49 Acquired absence of other specified parts of digestive tract; Z91.19 Patient's noncompliance with other medical treatment and regimen; Z99.2 Dependence on renal dialysis; Z88.6 Allergy status to analgesic agent; Z88.8 Allergy status to other drugs, medicaments and biological substances; Z91.15 Patient's noncompliance with renal dialysis
CPT/HCPCS: 36415; 36600; 71045; 72141; 80048; 80053; 80061; 82375; 82550; 82553; 82805; 82962; 83880; 84132; 84439; 84443; 84484; 85025; 86705; 86709; 86803; 86850; 86900; 86920; 87340; 87426; 93005; 93306; 93970; 94644; 97161; 99291; J0610; J0885; J1200; J1815; J1940; J3490; J7040; P9016

== ENCOUNTER 2021-03-19 03:28 | Inpatient (IN) | payer MEDICARE, MEDICAID ==
[~2021-03-19] VITALS: Ht 175.3 cm; Wt 72.1 kg
[2021-03-19] MEDS ORDERED: ASPIRIN 81MG TABLET PO ONE (04:15)
[2021-03-19] MEDS ORDERED: CALCIUM GLUCONATE 100MG/ML 10ML VIAL IV ONE (04:15)
[2021-03-19 04:43] LABS: CHLORIDE 107 mEq/L (98-107)
[2021-03-19 04:44] LABS: BASOPHILS % 0.8 % (0.0-2.0); EOSINOPHILS % 7.4 % (0.0-5.0); HEMATOCRIT. 27.6 % (42.0-52.0); HEMOGLOBIN. 8.6 g/dL (14.0-18.0); LYMPHOCYTES % 12.3 % (20.0-50.0); MEAN CORPUSCULAR HEMOGLOBIN 29.7 pg (28.0-32.0); MEAN CORPUSCULAR VOLUME 95.1 fL (80.0-94.0); MONOCYTES % 8.3 % (2.0-8.0); NEUTROPHILS % 71.2 % (40.0-76.0); PLATELET 305 x1000/uL (130-400); RED CELL DISTRIBUTION WIDTH 19.5 % (11.6-14.6)
[2021-03-19 04:46] LABS: ETHANOL BLOOD < 10 mg/dL
[2021-03-19] MEDS: FUROSEMIDE 40MG/4ML VIAL IVP NR (05:04)
[2021-03-19] MEDS ORDERED: CALCIUM CHLORIDE 1GM/10ML SYR IV NR (06:00)
[2021-03-19] MEDS ORDERED: SODIUM BICARBONATE 8.4% 1 MEQ/ML 50ML SYR IV NR (06:00)
[2021-03-19] MEDS ORDERED: INSULIN REGULAR (HUMULIN R) 300UNITS/3ML VIAL IV NR (06:00)
[2021-03-19] MEDS ORDERED: ALBUTEROL (0.083%) 2.5MG/3ML NEB HHN NR (06:00)
[2021-03-19] MEDS ORDERED: DEXTROSE 50% WATER 50ML SYRINGE IV NR (06:00)
[2021-03-19] MEDS ORDERED: LABETALOL 5MG/ML SYR 20 MG/4 ML SYRINGE IV SCH (06:45)
[2021-03-19] MEDS ORDERED: NITROGLYCERIN OINT 1GM/INCH UDPKT TD ONE (09:15)
[2021-03-19 12:44] LABS: HEPATITIS B SURFACE ANTIGEN NEGATIVE
[2021-03-19 13:14] LABS: HEPATITIS A AB IGM NEGATIVE (NEGATIVE)
[2021-03-19] MEDS ORDERED: HYDRALAZINE 20MG/ML VIAL IV NR (13:30)
[2021-03-19] MEDS ORDERED: HYDRALAZINE HCL 100MG TABLET PO NR (14:45)
[2021-03-19] MEDS ORDERED: CLONIDINE 0.1MG TABLET PO PRN (14:45)
[2021-03-19] MEDS ORDERED: ACETAMINOPHEN 325MG TABLET PO PRN (14:45)
[2021-03-19] MEDS ORDERED: CLONIDINE 0.1MG TABLET PO NR (14:45)
[2021-03-19] MEDS ORDERED: ONDANSETRON HCL 4MG/2ML INJ IV PRN (14:45)
[2021-03-19] MEDS: AMLODIPINE 10MG TABLET PO SCH (14:45)
[2021-03-19 18:06] VITALS: BP 174/116
[2021-03-19] MEDS ORDERED: AMLO10TA80 PO (18:32)
[2021-03-19 20:03] VITALS: BP 151/87
[2021-03-19 22:43] VITALS: BP 158/83
[2021-03-19] MEDS: HYDRALAZINE HCL 100MG TABLET PO SCH (22:43)
[2021-03-19] MEDS ORDERED: DIPHENHYDRAMINE 50MG/ML VIAL IV PRN (23:00)
[2021-03-20] VITALS (11 sets, daily range): BP systolic 144–184; BP diastolic 77–103
[2021-03-20] MEDS: FUROSEMIDE 40MG/4ML VIAL IVP NR (04:45)
[2021-03-20] MEDS: HYDRALAZINE HCL 100MG TABLET PO SCH ×3 (06:14→22:32)
[2021-03-20] MEDS: AMLODIPINE 10MG TABLET PO SCH (09:00)
[2021-03-20] MEDS: CLONIDINE 0.1MG TABLET PO SCH ×2 (09:00→17:36)
[2021-03-20] MEDS: DOXAZOSIN MESYLATE 4MG TABLET PO SCH ×2 (11:16→17:35)
[2021-03-20] MEDS: VANCOMYCIN 1250MG in DEXTROSE 5% WATER 250ML IV NR ×2 (12:45→13:00)
[2021-03-21] VITALS: BP 164/96
[2021-03-21 02:00] VITALS: BP 162/92
[2021-03-21 04:00] VITALS: BP 158/89
[2021-03-21 06:00] VITALS: BP 176/97
[2021-03-21] MEDS: HYDRALAZINE HCL 100MG TABLET PO SCH (07:01)
[2021-03-21] MEDS: DOXAZOSIN MESYLATE 4MG TABLET PO SCH (07:48)
[2021-03-21] MEDS: AMLODIPINE 10MG TABLET PO SCH (07:49)
[2021-03-21] MEDS: CLONIDINE 0.1MG TABLET PO SCH (07:49)
[2021-03-21 08:00] VITALS: BP 176/97
== END 2021-03-21 09:30 | disposition left against medical advice (07) | DRG 291 ==
LOC: ER 04:41 → EDBEDREQTM 11:51 → EDBEDREQ 11:51 → EDBEDREQSVC 12:32 → MICUSO 15:21 → ENRESERV 15:23 → 3WST 15:24 → MICUSO 15:24 → 3WST 17:09
PROVIDERS: ADMIT Internal Medicine; ATTEND Internal Medicine
PROC: 5A1D70Z Performance of Urinary Filtration, Intermittent, Less than 6 Hours Per Day (ICD-10-PCS; principal; 2021-03-19)
PROC: 5A09357 Assistance with Respiratory Ventilation, Less than 24 Consecutive Hours, Continuous Positive Airway Pressure (ICD-10-PCS; 2021-03-19)
PROC: 5A1D70Z Performance of Urinary Filtration, Intermittent, Less than 6 Hours Per Day (ICD-10-PCS; 2021-03-21)
DX: I13.2 Hypertensive heart and chronic kidney disease with heart failure and with stage 5 chronic kidney disease, or end stage renal disease (principal); I50.33 Acute on chronic diastolic (congestive) heart failure; J96.00 Acute respiratory failure, unspecified whether with hypoxia or hypercapnia; N18.6 End stage renal disease; I16.0 Hypertensive urgency; D64.9 Anemia, unspecified; E11.22 Type 2 diabetes mellitus with diabetic chronic kidney disease; E87.5 Hyperkalemia; F17.210 Nicotine dependence, cigarettes, uncomplicated; J44.9 Chronic obstructive pulmonary disease, unspecified; Z53.29 Procedure and treatment not carried out because of patient's decision for other reasons; Z20.822 Contact with and (suspected) exposure to COVID-19; Z99.2 Dependence on renal dialysis; Z86.19 Personal history of other infectious and parasitic diseases; Z88.8 Allergy status to other drugs, medicaments and biological substances
CPT/HCPCS: 36415; 71045; 80053; 80320; 82962; 83880; 84484; 85025; 86705; 86709; 86803; 87340; 87426; 93005; 94640; 94660; 99285; J0360; J0610; J1200; J1815; J1940; J3370; J3490; J7060; G0480

== ENCOUNTER 2021-04-11 15:58 | Inpatient (IN) | payer MEDICARE, MEDICAID ==
[~2021-04-11] VITALS: Ht 175.3 cm; Wt 70.3 kg
[~2021-04-11 15:58] MED LIST changes: +AMLO10TA80 PO
[2021-04-11] MEDS ORDERED: LABETALOL HCL 20MG/4ML CARPUJECT IV ONE (16:30)
[2021-04-11] MEDS ORDERED: LORAZEPAM 2MG/ML CPJ IV ONE ×2 (16:30→17:00)
[2021-04-11] MEDS ORDERED: KETAMINE HCL 50 MG/ML 10ML IM ONE (16:45)
[2021-04-11] MEDS ORDERED: CLONIDINE 0.3MG TABLET PO ONE (16:45)
[2021-04-11] MEDS ORDERED: METOPROLOL TARTRATE 5MG/5ML VIAL IV ONE (17:00)
[2021-04-11] MEDS ORDERED: LABETALOL 5MG/ML SYR 20 MG/4 ML SYRINGE IV ONE ×2 (17:00→17:15)
[2021-04-11] MEDS: FUROSEMIDE 100MG/10ML VIAL IVP SCH ×2 (17:19→18:24)
[2021-04-11 17:25] LABS: BASOPHILS % 0.6 % (0.0-2.0); EOSINOPHILS % 4.7 % (0.0-5.0); HEMATOCRIT. 22.7 % (42.0-52.0); HEMOGLOBIN. 7.6 g/dL (14.0-18.0); LYMPHOCYTES % 10.7 % (20.0-50.0); MEAN CORPUSCULAR VOLUME 95.6 fL (80.0-94.0); MEAN PLATELET VOLUME 7.1 fl (7.4-10.4); MONOCYTES % 5.9 % (2.0-8.0); NEUTROPHILS % 78.1 % (40.0-76.0); PLATELET 284 x1000/uL (130-400); RED BLOOD CELL COUNT 2.38 mill/uL (4.7-6.1); RED CELL DISTRIBUTION WIDTH 18.9 % (11.6-14.6)
[2021-04-11 17:31] LABS: CHLORIDE 108 mEq/L (98-107)
[2021-04-11] MEDS ORDERED: LABETALOL 5MG/ML SYR 20 MG/4 ML SYRINGE IV NR (18:30)
[2021-04-11] MEDS ORDERED: LABETALOL HCL 100MG TABLET PO NR (18:30)
[2021-04-11 21:41] VITALS: BP 151/98
[2021-04-11] MEDS ORDERED: ACETAMINOPHEN 325MG TABLET PO PRN (21:45)
[2021-04-11] MEDS ORDERED: HYDROCODONE/ACETAMINOPHEN 5/325MG TABLET PO PRN (21:45)
[2021-04-11] MEDS ORDERED: IPRATROPIUM/ALBUTEROL 0.5-3(2.5)MG/3ML NEB HHN PRN (21:45)
[2021-04-11] MEDS ORDERED: MORPHINE SULFATE 2 MG/ML CPJ (NOT FOR IM USE) IV PRN (21:45)
[2021-04-11] MEDS ORDERED: LORAZEPAM 2MG/ML CPJ IV PRN (21:45)
[2021-04-11] MEDS ORDERED: HYDRALAZINE 20MG/ML VIAL IV PRN (21:45)
[2021-04-11] MEDS ORDERED: GUAIFENESIN 200MG/10ML SUGAR FREE UDC PO PRN (21:45)
[2021-04-11] MEDS ORDERED: ONDANSETRON HCL 4MG/2ML INJ IV PRN (21:45)
[2021-04-11] MEDS ORDERED: DOCUSATE SODIUM 100MG CAPSULE PO PRN (21:45)
[2021-04-11] MEDS ORDERED: DIPHENHYDRAMINE 50MG/ML VIAL IV PRN (21:45)
[2021-04-11] MEDS ORDERED: MAGNESIUM/ALUMINUM HYDROXIDE/SIMETHICONE 30ML UDC PO PRN (21:45)
[2021-04-11 22:00] VITALS: BP 151/98
[2021-04-11] MEDS ORDERED: NALOXONE HCL 0.4MG/ML VIAL IV PRN (22:00)
[2021-04-11] MEDS: SODIUM CHLORIDE 0.9% INJ 3ML FLUSH IVF SCH (22:00)
[2021-04-12] VITALS (25 sets, daily range): BP systolic 112–192; BP diastolic 68–145
[2021-04-12] MEDS: CLONIDINE 0.1MG TABLET PO PRN ×2 (06:08→19:03)
[2021-04-12] MEDS: SODIUM CHLORIDE 0.9% INJ 3ML FLUSH IVF SCH ×3 (06:16→21:41)
[2021-04-12 06:17] LABS: CHLORIDE 108 mEq/L (98-107)
[2021-04-12 07:30] LABS: BASOPHILS % 1.3 % (0.0-2.0); EOSINOPHILS % 3.4 % (0.0-5.0); HEMATOCRIT. 22.9 % (42.0-52.0); HEMOGLOBIN. 7.4 g/dL (14.0-18.0); LYMPHOCYTES % 16.3 % (20.0-50.0); MEAN CORPUSCULAR HEMOGLOBIN 30.6 pg (28.0-32.0); MEAN CORPUSCULAR VOLUME 94.8 fL (80.0-94.0); MEAN PLATELET VOLUME 8.9 fl (7.4-10.4); MONOCYTES % 7.9 % (2.0-8.0); NEUTROPHILS % 71.1 % (40.0-76.0); PLATELET 245 x1000/uL (130-400); RED BLOOD CELL COUNT 2.41 mill/uL (4.7-6.1); RED CELL DISTRIBUTION WIDTH 18.6 % (11.6-14.6)
[2021-04-12] MEDS ORDERED: SODIUM BICARBONATE 8.4% 1 MEQ/ML 50ML SYR IV SCH (09:00)
[2021-04-12] MEDS ORDERED: DEXTROSE 50% WATER 50ML SYRINGE IV SCH (09:00)
[2021-04-12] MEDS ORDERED: INSULIN REGULAR (HUMULIN R) 300UNITS/3ML VIAL IV SCH (09:00)
[2021-04-12] MEDS ORDERED: SODIUM POLYSTYRENE SULFONATE 15 G/60 ML BOT PO SCH (10:00)
[2021-04-12] MEDS ORDERED: CALCIUM GLUCONATE 1GM PREMIX 50 ML IV SCH (11:00)
[2021-04-12 16:36] LABS: BG BASE EXCESS 4.7 mmol/L (-2.0-2.0); BG CARBOXYHEMOGLOBIN 0.1 % (0.5-1.5); BG DEOXYHEMOGLOBIN 4.1 % (0.0-5.0); BG HCO3 ACT 28.3 mmol/L (22.0-26.0); BG METHEMOGLOBIN 0.3 % (0.0-1.5); BG OXYGEN SATURATION 95.9 % (92.0-98.5); BG OXYHEMOGLOBIN 95.5 % (94.0-97.0); BG PCO2 37.8 mmHg (35.0-45.0); BG PH 7.492 (7.350-7.450); BG PO2 76.5 mmHg (75.0-100.0); BG SAMPLE SITE LEFT RADIAL; BG TOTAL HEMOGLOBIN 9.1 g/dL (12.0-18.0); BG VENT MODE NASAL CANNULA
[2021-04-12] MEDS ORDERED: AZITHROMYCIN 500 MG in DEXT 5% WATER 250 ML IV SCH (20:00)
[2021-04-12 21:19] LABS: HEPATITIS B SURFACE ANTIGEN NEGATIVE
[2021-04-12] MEDS ORDERED: AZITHROMYCIN 500 MG TABLET PO SCH (22:07)
[2021-04-13] VITALS (9 sets, daily range): BP systolic 126–180; BP diastolic 65–113
[2021-04-13] MEDS: SODIUM CHLORIDE 0.9% INJ 3ML FLUSH IVF SCH ×3 (06:00→14:00)
[2021-04-13] MEDS: CLONIDINE 0.1MG TABLET PO PRN (06:04)
[2021-04-13 11:22] LABS: HEMATOCRIT 22.7 % (42.0-52.0); HEMOGLOBIN 7.9 g/dL (14.0-18.0); MEAN CORPUSCULAR HEMOGLOBIN 31.8 pg (28.0-32.0); MEAN CORPUSCULAR VOLUME 91.9 fL (80.0-94.0); PLATELET 228 x1000/uL (130-400); RED BLOOD CELL COUNT 2.47 mill/uL (4.7-6.1); RED CELL DISTRIBUTION WIDTH 17.5 % (11.6-14.6)
[2021-04-13] MEDS ORDERED: AMLODIPINE 10MG TABLET PO SCH ×2 (11:45→14:15)
[2021-04-13] MEDS ORDERED: CLONIDINE 0.1MG TABLET PO SCH ×2 (11:45→14:15)
[2021-04-13 16:09] LABS: BG BASE EXCESS -0.3 mmol/L (-2.0-2.0); BG DEOXYHEMOGLOBIN 7.1 % (0.0-5.0); BG OXYGEN SATURATION 92.9 % (92.0-98.5); BG OXYHEMOGLOBIN 92.9 % (94.0-97.0); BG PCO2 37.6 mmHg (35.0-45.0); BG PH 7.423 (7.350-7.450); BG PO2 66.5 mmHg (75.0-100.0); BG SAMPLE SITE RIGHT RADIAL; BG TOTAL HEMOGLOBIN 9.2 g/dL (12.0-18.0); BG VENT MODE ROOM AIR
[2021-04-14] MEDS ORDERED: AMLODIPINE 10MG TABLET PO SCH (09:00)
== END 2021-04-13 18:30 | disposition home or self-care (01) | DRG 871 ==
LOC: ER 15:58 → ENRESERV 20:02 → EDBEDREQSVC 20:56 → 5EST 21:10
PROVIDERS: ADMIT Internal Medicine; ATTEND Internal Medicine
PROC: 5A09457 Assistance with Respiratory Ventilation, 24-96 Consecutive Hours, Continuous Positive Airway Pressure (ICD-10-PCS; 2021-04-11)
PROC: 30233N1 Transfusion of Nonautologous Red Blood Cells into Peripheral Vein, Percutaneous Approach (ICD-10-PCS; principal; 2021-04-12)
PROC: 5A1D70Z Performance of Urinary Filtration, Intermittent, Less than 6 Hours Per Day (ICD-10-PCS; 2021-04-12)
DX: A41.9 Sepsis, unspecified organism (principal); J96.01 Acute respiratory failure with hypoxia; I50.43 Acute on chronic combined systolic (congestive) and diastolic (congestive) heart failure; N18.6 End stage renal disease; J18.9 Pneumonia, unspecified organism; I13.2 Hypertensive heart and chronic kidney disease with heart failure and with stage 5 chronic kidney disease, or end stage renal disease; J44.0 Chronic obstructive pulmonary disease with (acute) lower respiratory infection; D64.9 Anemia, unspecified; F20.9 Schizophrenia, unspecified; E87.5 Hyperkalemia; I25.10 Atherosclerotic heart disease of native coronary artery without angina pectoris; E11.22 Type 2 diabetes mellitus with diabetic chronic kidney disease; E78.00 Pure hypercholesterolemia, unspecified; E78.5 Hyperlipidemia, unspecified; I27.20 Pulmonary hypertension, unspecified; Z20.822 Contact with and (suspected) exposure to COVID-19; F17.210 Nicotine dependence, cigarettes, uncomplicated; Z88.6 Allergy status to analgesic agent; Z88.8 Allergy status to other drugs, medicaments and biological substances; Z79.82 Long term (current) use of aspirin; Z79.899 Other long term (current) drug therapy; Z79.891 Long term (current) use of opiate analgesic; Z86.73 Personal history of transient ischemic attack (TIA), and cerebral infarction without residual deficits; Z71.6 Tobacco abuse counseling; Z99.2 Dependence on renal dialysis
CPT/HCPCS: 36415; 36600; 71045; 80053; 82375; 82805; 82962; 84132; 84443; 84484; 85025; 85027; 86705; 86709; 86803; 86850; 86900; 86920; 87340; 87426; 93005; 93970; 94660; 99291; J0456; J0610; J1815; J1940; J2060; J3490; J7060; P9016

== ENCOUNTER 2021-06-07 07:20 | Emergency (ER) | payer MEDICARE, MEDICAID ==
[~2021-06-07] VITALS: Ht 177.8 cm; Wt 80.0 kg
[2021-06-07] MEDS ORDERED: METRONIDAZOLE 500 MG PREMIX 100 ML IV STA (08:18)
[2021-06-07] MEDS ORDERED: ACETAMINOPHEN 325MG TABLET PO STA (08:18)
[2021-06-07] MEDS ORDERED: CLONIDINE 0.2MG TABLET PO ONE (10:00)
[2021-06-07] MEDS ORDERED: AMLODIPINE 10MG TABLET PO ONE (10:00)
[2021-06-07 10:11] LABS: HEMATOCRIT. 33.9 % (42.0-52.0); HEMOGLOBIN. 10.9 g/dL (14.0-18.0); MEAN CORPUSCULAR HEMOGLOBIN 30.7 pg (28.0-32.0); MEAN CORPUSCULAR VOLUME 95.2 fL (80.0-94.0); MEAN PLATELET VOLUME 7.2 fl (7.4-10.4); PLATELET 318 x1000/uL (130-400); RED BLOOD CELL COUNT 3.56 mill/uL (4.7-6.1); RED CELL DISTRIBUTION WIDTH 18.3 % (11.6-14.6)
[2021-06-07 10:17] LABS: CHLORIDE 102 mEq/L (98-107)
[2021-06-07] MEDS ORDERED: DEXAMETHASONE 10 MG/ML VIAL IV ONE (10:30)
[2021-06-07 11:03] LABS: PLATELET ESTIMATE NORMAL
[2021-06-07] MEDS ORDERED: IOHEXOL-300 100 ML BOTTLE ONE (11:08)
[2021-06-07] MEDS ORDERED: HYDRALAZINE HCL 100MG TABLET PO STA (17:57)
[2021-06-07] MEDS ORDERED: CLONIDINE 0.1MG TABLET PO STA (17:57)
[2021-06-07] MEDS ORDERED: AMPICILLIN SOD/SULBACTAM NA 3 G in SODIUM CHLORIDE 0.9% 100 ML IV STA (17:57)
[2021-06-07] MEDS: AMPICILLIN SOD/SULBACTAM NA 3 G in SODIUM CHLORIDE 0.9% 100 ML IV SCH (19:28)
[2021-06-07] MEDS ORDERED: PROPOFOL 10MG/ML 100ML 100 ML IV ONE (22:00)
[2021-06-07] MEDS ORDERED: ETOMIDATE 2MG/ML 10ML VIAL IV ONE (22:00)
[2021-06-07] MEDS ORDERED: SUCCINYLCHOLINE CHLORIDE 200MG/10ML IV ONE (22:00)
[2021-06-07 23:08] LABS: BG BASE EXCESS -4.1 mmol/L (-2.0-2.0); BG CARBOXYHEMOGLOBIN 1.6 % (0.5-1.5); BG DEOXYHEMOGLOBIN 4.9 % (0.0-5.0); BG FRACTION INSPIRED OXYGEN 40; BG HCO3 ACT 22.7 mmol/L (22.0-26.0); BG METHEMOGLOBIN 0.2 % (0.0-1.5); BG OXYHEMOGLOBIN 93.3 % (94.0-97.0); BG PCO2 48.6 mmHg (35.0-45.0); BG PH 7.288 (7.350-7.450); BG PO2 82.6 mmHg (75.0-100.0); BG SAMPLE SITE RIGHT BRACHIAL; BG TOTAL HEMOGLOBIN 13.7 g/dL (12.0-18.0); BG VENT MODE VENT - AC
[2021-06-07] MEDS ORDERED: MIDAZOLAM HCL 100 MG in DEXT 5% WATER 80 ML IV ONE (23:15)
[2021-06-07] MEDS: MIDAZOLAM HCL 100 MG in SODIUM CHLORIDE 0.9% 80 ML IV NR (23:29)
[2021-06-07] MEDS ORDERED: FENTANYL CITRATE/PF 1,000 MCG in SODIUM CHLORIDE 0.9% 80 ML IV PRN (23:45)
[2021-06-07] MEDS ORDERED: FENTANYL CITRATE/PF 50MCG/ML 2ML VIAL IV ONE (23:45)
[2021-06-07] MEDS ORDERED: FENTANYL CITRATE/PF 2,500 MCG in SODIUM CHLORIDE 0.9% 200 ML IV PRN (23:45)
[2021-06-08] MEDS: MIDAZOLAM HCL 100 MG in SODIUM CHLORIDE 0.9% 80 ML IV NR (00:25)
[2021-06-08] MEDS ORDERED: VECURONIUM BROMIDE 10 MG/VIAL IV ONE (08:31)
[2021-06-08] MEDS ORDERED: SUCCINYLCHOLINE CHLORIDE 200MG/10ML IV ONE (08:31)
[2021-06-08] MEDS ORDERED: SODIUM CHLORIDE 0.9% 10ML VIAL ONE (08:31)
[2021-06-08] MEDS ORDERED: ETOMIDATE 2MG/ML 10ML VIAL IV ONE (08:31)
[2021-06-08] MEDS: AMPICILLIN SOD/SULBACTAM NA 3 G in SODIUM CHLORIDE 0.9% 100 ML IV SCH (09:54)
[2021-06-08 11:37] VITALS: BP 118/65
== END 2021-06-09 22:41 | disposition short-term general hospital (02) ==
LOC: ER 07:31 → EDBEDREQSVC 11:52 → EDBEDREQ 11:52 → EDBEDREQTM 11:54 → CANBEDREQ 20:58 → ER 06-09 22:41
DX: K12.2 Cellulitis and abscess of mouth (principal); J39.2 Other diseases of pharynx; I12.0 Hypertensive chronic kidney disease with stage 5 chronic kidney disease or end stage renal disease; N18.6 End stage renal disease; I95.9 Hypotension, unspecified; J44.9 Chronic obstructive pulmonary disease, unspecified; F17.210 Nicotine dependence, cigarettes, uncomplicated; Z20.822 Contact with and (suspected) exposure to COVID-19; Z90.49 Acquired absence of other specified parts of digestive tract; Z99.2 Dependence on renal dialysis; Z88.6 Allergy status to analgesic agent; Z75.1 Person awaiting admission to adequate facility elsewhere
CPT/HCPCS: 31500; 36415; 36600; 70487; 71045; 80053; 82375; 82805; 83605; 84145; 85025; 86140; 86850; 86900; 86901; 87040; 93005; 94002; 94003; 96365; 96366; 96367; 96375; 99291; J0295; J0330; J1100; J2250; J2704; J3010; J3490; J7050; Q9967; J7060

== ENCOUNTER 2021-08-15 16:45 | Emergency (ER) | payer OTHER, MEDICAID ==
[~2021-08-15] VITALS: Ht 175.3 cm; Wt 69.0 kg
[2021-08-15 16:47] VITALS: BP 204/117
== END 2021-08-15 18:55 | disposition left against medical advice (07) ==
LOC: ER 16:45
DX: Z53.21 Procedure and treatment not carried out due to patient leaving prior to being seen by health care provider (principal)